=== PATIENT | male | born 1955 | race Caucasian/White ===

== ENCOUNTER 2016-09-18 10:09 | Emergency (ER) | payer MEDICAID ==
[2016-09-18 10:14] VITALS: RESP 16
--- NOTE | 2016-09-18 11:39 | XR ---
EXAMINATION TYPE: XR hand limited RT DATE OF EXAM: 09/18/2016 11:35 AM CLINICAL HISTORY: table saw injury to rt second digit TECHNIQUE: Frontal, lateral images of the right hand are obtained. COMPARISON: None. FINDINGS: Soft tissue injury right second digit. Several radiopaque densities may reflect foreign bod y. No displaced fracture identified with certainty at this time. IMPRESSION: There is no acute fracture or dislocation ICD 10 NO FRACTURE, INITIAL EVALUATION
[2016-09-18] MEDS ORDERED: CEPHALEXIN 500 MG CAP PO STA (12:06)
[2016-09-18] MEDS ORDERED: CEPHALEXIN 500MG STARTER PACK 4 CAP BTL PO STA (12:06)
[2016-09-18] MEDS ORDERED: DIPH,PERTUS(ACELL)TETVAC-LF 0.5 ML VIAL IM ONE (12:10)
--- NOTE | 2016-09-18 12:11 | ED ---
General Adult HPI - General Chief complaint: Wound/Laceration Stated complaint: RT INDEX FINGER LAC TABLE SAW Time Seen by Provider: 09/18/16 10:32 Source: patient, RN notes reviewed, old records reviewed Mode of arrival: ambulatory Limitations: no limitations - History of Present Illness Initial comments: This is a 60-year-old male here for evaluation. Patient is here for devotion finger injury. Finger injury is of, this was an injury sustained or with tablesaw. Patient this injury happened about half hour prior to arrival. Patient complains of severe pain in that finger, minimal bleeding. Patient denies any change in range of motion - Related Data Home Medications Medication Instructions Recorded Confirmed Aspirin 81 mg PO DAILY 02/15/14 09/18/16 Atorvastatin Calcium [Lipitor] 40 mg PO DAILY 02/15/14 09/18/16 Fenofibrate [Lofibra] 54 mg PO DAILY 02/15/14 09/18/16 Hydrochlorothiazide 50 mg PO W/SUPPER 02/15/14 09/18/16 Insulin NPH Human Isophane 36 unit INJ HS 02/15/14 09/18/16 [humuLIN N Kwikpen] Pioglitazone HCl 30 mg PO BID 02/15/14 09/18/16 cloNIDine HCL 0.1 mg PO W/SUPPER 02/15/14 09/18/16 Allopurinol [Zyloprim] 300 mg PO HS 09/05/15 09/18/16 Canagliflozin [Invokana] 300 mg PO DAILY 09/05/15 09/18/16 Cholecalciferol [Vitamin D3] 2,000 unit PO DAILY 09/05/15 09/18/16 Magnesium Oxide [Mag-Ox] 400 mg PO QID 09/05/15 09/18/16 Multivitamins, Thera [Multivitamin] 1 tab PO DAILY 09/05/15 09/18/16 Theralith 1 tab PO QID 09/05/15 09/18/16 Enalapril [Vasotec] 10 mg PO BID 04/22/16 09/18/16 glipiZIDE/METFORMIN HCL 1 each PO DAILY 04/22/16 09/18/16 [glipiZIDE/METFORMIN HCL 2.5-500 mg] Previous Rx's Medication Instructions Recorded Famotidine [Pepcid] 20 mg PO BID #30 tablet 07/25/16 HYDROcodone/APAP 7.5-325MG [[place] 1 tab PO Q4H PRN #30 tab 04/26/16 7.5-325] Allergies Allergy/AdvReac Type Severity Reaction Status Date / Time No Known Allergies Allergy Verified 09/18/16 10:14 Review of Systems ROS Statement: Those systems with pertinent positive or pertinent negative responses have been documented in the HPI. ROS Other: All systems not noted in ROS Statement are negative. Past Medical History Past Medical History: Diabetes Mellitus, Hyperlipidemia, Hypertension Additional Past Medical History / Comment(s): RENAL CALCULUS History of Any Multi-Drug Resistant Organisms: None Reported Past Surgical History: Hernia Repair Additional Past Surgical History / Comment(s): LITHOTRIPSY Past Anesthesia/Blood Transfusion Reactions: Postoperative Nausea & Vomiting ( PONV) Additional Past Anesthesia/Blood Transfusion Reaction / Comment(s): STATES SEVERE Past Psychological History: No Psychological Hx Reported Smoking Status: Never smoker Past Alcohol Use History: None Reported Past Drug Use History: None Reported General Exam Limitations: no limitations General appearance: alert, in no apparent distress Head exam: Present: atraumatic, normocephalic, normal inspection Eye exam: Present: normal appearance, PERRL, EOMI. Absent: scleral icterus, conjunctival injection, periorbital swelling ENT exam: Present: normal exam, mucous membranes moist Neck exam: Present: normal inspection. Absent: tenderness, meningismus, lymphadenopathy Respiratory exam: Present: normal lung sounds bilaterally. Absent: respiratory distress, wheezes, rales, rhonchi, stridor Cardiovascular Exam: Present: regular rate, normal rhythm, normal heart sounds. Absent: systolic murmur, diastolic murmur, rubs, gallop, clicks GI/Abdominal exam: Present: soft, normal bowel sounds. Absent: distended, tenderness, guarding, rebound, rigid Extremities exam: Present: normal inspection, full ROM, normal capillary refill , other (Right index finger skin flap with lacerated and macerated edge, laceration extends about 5 cm around the entire length of finger. The does not seem to be tendon damage affecting the function but upon deep exploration of wound the tendons do appear to be damaged). Absent: tenderness, pedal edema, joint swelling, calf tenderness Back exam: Present: normal inspection Neurological exam: Present: alert, oriented X3, CN II-XII intact Psychiatric exam: Present: normal affect, normal mood Skin exam: Present: warm, dry, intact, normal color. Absent: rash Course Vital Signs 09/18/16 10:12 Temperature 98.0 F Pulse Rate 83 Respiratory 16 Rate Blood Pressure 127/78 O2 Sat by Pulse 96 Oximetry - Reevaluation(s) Reevaluation #1: 09/18/16 12:07 Finger sutures placed, wound is cleaned and irrigated, after anesthetic. Bandage is applied Procedures - Laceration Laceration #1 Consent Obtained: verbal consent Time Out Performed: Yes Indication: laceration Site: hand Description: stellate, flap, irregular Depth: simple, single layer Anesthetic Used: lidocaine 1% Anesthesia Technique: nerve block Pre-repair: wound explored, irrigated extensively Type of Sutures: nylon Size of Sutures: 4-0 Technique: simple, interrupted Patient Tolerated Procedure: well Medical Decision Making - Medical Decision Making 61-year-old male to the ER for evaluation of finger injury, finger laceration with skin flap. There does appear to be tendon involvement, patient understands this and will follow-up with Dr. Hudson, patient at this point is given antibiotics for preventative infection, we will also give patient tetanus shot here today, - Radiology Data Radiology results: report reviewed (X-ray right hand is negative for fracture), image reviewed Disposition Clinical Impression: Laceration, Laceration of right index finger, Other injury of extensor muscle, fascia and tendon of right index finger at forearm level, initial encounter Disposition: HOME SELF-CARE Condition: Good Instructions: Finger Laceration (ED), Tendon Laceration (ED) Referrals: Lev Kuhn MD [Primary Care Provider] - 1-2 days Leonardo Hudson DO [Doctor of Osteopathic Medicine] - 1-2 days
[2016-09-18 12:47] VITALS: BP 122/78; PULSE 78; TEMP 97.2
== END 2016-09-18 12:48 | disposition home or self-care (01) ==
LOC: EC 10:09
DX: S56.421A Laceration of extensor muscle, fascia and tendon of right index finger at forearm level, initial encounter (principal); E11.9 Type 2 diabetes mellitus without complications; I10 Essential (primary) hypertension; E78.5 Hyperlipidemia, unspecified; Z23 Encounter for immunization; Z79.4 Long term (current) use of insulin; Z79.84 Long term (current) use of oral hypoglycemic drugs; Z79.899 Other long term (current) drug therapy; W26.8XXA Contact with other sharp object(s), not elsewhere classified, initial encounter
CPT/HCPCS: 12002; 90471; 90715; 99283

== ENCOUNTER → 2016-09-29 | Outpatient (CLI) | payer MEDICAID ==
[2016-09-29 07:54] LABS: Basophils # (A) 0.1 k/uL (0-0.2); Basophils % (A) 1 %; CH 31.2; CHCM 33.7; Eosinophils # (A) 0.6 k/uL (0-0.7); Eosinophils % (A) 7 %; HCT 45.2 % (39.0-53.0); HDW 2.99; HGB 15.4 gm/dL (13.0-17.5); Luc # (Auto) 0.33; Luc % (Auto) 4; Lymphocytes # (A) 2.3 k/uL (1.0-4.8); Lymphocytes % (A) 28 %; MCH 31.7 pg (25.0-35.0); MCHC 34.1 g/dL (31.0-37.0); Monocytes # (A) 0.5 k/uL (0-1.0); Monocytes % (A) 6 %; Neutrophils # (A) 4.3 k/uL (1.3-7.7); Neutrophils % (A) 54 %; RBC 4.87 m/uL (4.30-5.90); RDW 13.8 % (11.5-15.5); WBC 8.1 k/uL (3.8-10.6); WBC (Perox) 8.21
[2016-09-29 11:54] LABS: ALT 40 U/L (21-72); AST 36 U/L (17-59); Alkaline Phosphatase 65 U/L (38-126); Anion Gap 13 mmol/L; Blood Urea Nitrogen 18 mg/dL (9-20); Calcium 10.6 mg/dL (8.4-10.2); Carbon Dioxide 24 mmol/L (22-30); Chloride 103 mmol/L (98-107); Cholesterol 140 mg/dL (<200); Glucose 129 mg/dL (74-99); HDL Cholesterol 32 mg/dL (40-60); Hemoglobin A1C 7.6 % (4.2-6.1); Non-African American GFR(MDRD) >60 (>60 ml/min/1.73 sqM); Sodium 140 mmol/L (137-145); Total Bilirubin 0.5 mg/dL (0.2-1.3); Total Protein 6.7 g/dL (6.3-8.2); Triglycerides 324 mg/dL (<150)
[2016-09-29 12:24] LABS: Prostate Specific Antigen 0.89 ng/mL (0.00-4.00)
== END ==
LOC: LABWHC1 07:11
PROVIDERS: ATTEND Urology
DX: I10 Essential (primary) hypertension (principal); E11.65 Type 2 diabetes mellitus with hyperglycemia; E78.00 Pure hypercholesterolemia, unspecified; N40.1 Benign prostatic hyperplasia with lower urinary tract symptoms; R35.1 Nocturia
CPT/HCPCS: 36415; 80053; 80061; 83036; 84153; 84439; 84443; 85025

== ENCOUNTER → 2017-03-17 | Outpatient (CLI) | payer MEDICAID ==
[2017-03-17 08:48] LABS: Basophils # (A) 0.1 k/uL (0-0.2); Basophils % (A) 1 %; CH 30.1; CHCM 32.9; Eosinophils # (A) 0.9 k/uL (0-0.7); Eosinophils % (A) 8 %; HCT 47.2 % (39.0-53.0); HDW 2.86; HGB 15.7 gm/dL (13.0-17.5); Luc # (Auto) 0.26; Luc % (Auto) 2; Lymphocytes # (A) 2.6 k/uL (1.0-4.8); Lymphocytes % (A) 24 %; MCH 30.7 pg (25.0-35.0); MCHC 33.3 g/dL (31.0-37.0); MCV 92.1 fL (80.0-100.0); Mean Platelet Volume 7.6; Monocytes # (A) 0.8 k/uL (0-1.0); Monocytes % (A) 7 %; Neutrophils # (A) 6.4 k/uL (1.3-7.7); Neutrophils % (A) 58 %; RBC 5.12 m/uL (4.30-5.90); RDW 15.3 % (11.5-15.5); WBC 11.1 k/uL (3.8-10.6); WBC (Perox) 11.11
[2017-03-17 08:55] LABS: ALT 41 U/L (21-72); AST 32 U/L (17-59); Alkaline Phosphatase 72 U/L (38-126); Anion Gap 11 mmol/L; Blood Urea Nitrogen 16 mg/dL (9-20); Calcium 10.2 mg/dL (8.4-10.2); Carbon Dioxide 29 mmol/L (22-30); Chloride 100 mmol/L (98-107); Cholesterol 148 mg/dL (<200); Glucose 150 mg/dL (74-99); HDL Cholesterol 39 mg/dL (40-60); Non-African American GFR(MDRD) >60 (>60 ml/min/1.73 sqM); Potassium 4.1 mmol/L (3.5-5.1); Sodium 140 mmol/L (137-145); Total Bilirubin 0.4 mg/dL (0.2-1.3); Total Protein 7.1 g/dL (6.3-8.2)
== END | disposition home or self-care (01) ==
LOC: LABWHC1 07:53
PROVIDERS: ATTEND Internal Medicine Geriatric Medicine
DX: E78.00 Pure hypercholesterolemia, unspecified (principal); E11.65 Type 2 diabetes mellitus with hyperglycemia; I10 Essential (primary) hypertension
CPT/HCPCS: 36415; 80053; 80061; 83036; 84439; 84443; 85025

== ENCOUNTER → 2017-07-13 | Outpatient (CLI) | payer MEDICAID ==
[2017-07-13 07:56] LABS: Basophils # (A) 0.1 k/uL (0-0.2); Basophils % (A) 1 %; Eosinophils # (A) 0.7 k/uL (0-0.7); Eosinophils % (A) 9 %; HCT 47.9 % (39.0-53.0); HGB 15.5 gm/dL (13.0-17.5); Lymphocytes # (A) 2.7 k/uL (1.0-4.8); Lymphocytes % (A) 31 %; MCH 29.2 pg (25.0-35.0); MCHC 32.5 g/dL (31.0-37.0); MCV 89.8 fL (80.0-100.0); Mean Platelet Volume 7.4; Monocytes # (A) 0.8 k/uL (0-1.0); Monocytes % (A) 9 %; Neutrophils # (A) 4.1 k/uL (1.3-7.7); Neutrophils % (A) 47 %; Platelet Count 253 k/uL (150-450); RBC 5.33 m/uL (4.30-5.90); WBC 8.7 k/uL (3.8-10.6)
[2017-07-13 08:00] LABS: ALT 27 U/L (21-72); AST 30 U/L (17-59); Albumin 4.4 g/dL (3.5-5.0); Alkaline Phosphatase 69 U/L (38-126); Anion Gap 12 mmol/L; Blood Urea Nitrogen 22 mg/dL (9-20); Calcium 10.5 mg/dL (8.4-10.2); Carbon Dioxide 30 mmol/L (22-30); Chloride 99 mmol/L (98-107); Cholesterol 148 mg/dL (<200); Glucose 108 mg/dL (74-99); HDL Cholesterol 49 mg/dL (40-60); LDL Cholesterol,Calculated 59 mg/dL (0-99); Potassium 4.2 mmol/L (3.5-5.1); Sodium 141 mmol/L (137-145); Total Bilirubin 0.5 mg/dL (0.2-1.3); Total Protein 7.1 g/dL (6.3-8.2); Triglycerides 201 mg/dL (<150)
[2017-07-13 08:16] LABS: T4, Free (Free Thyroxine) 0.99 ng/dL (0.78-2.19)
[2017-07-13 19:37] LABS: Hemoglobin A1C 8.9 % (4.0-6.0)
== END | disposition home or self-care (01) ==
LOC: LABWHC1 07:23
PROVIDERS: ATTEND Internal Medicine Geriatric Medicine
DX: E11.65 Type 2 diabetes mellitus with hyperglycemia (principal); E78.00 Pure hypercholesterolemia, unspecified; I10 Essential (primary) hypertension
CPT/HCPCS: 36415; 80053; 80061; 82043; 82570; 83036; 84439; 84443; 85025

== ENCOUNTER → 2017-10-27 | Outpatient (CLI) | payer MEDICAID ==
[2017-10-27 09:04] LABS: HCT 45.8 % (39.0-53.0); HGB 15.4 gm/dL (13.0-17.5); MCH 30.4 pg (25.0-35.0); MCHC 33.7 g/dL (31.0-37.0); MCV 90.3 fL (80.0-100.0); Platelet Count 214 k/uL (150-450); RBC 5.07 m/uL (4.30-5.90); RDW 13.9 % (11.5-15.5); WBC 7.7 k/uL (3.8-10.6)
[2017-10-27 09:13] LABS: ALT 38 U/L (21-72); AST 45 U/L (17-59); Albumin 4.2 g/dL (3.5-5.0); Alkaline Phosphatase 69 U/L (38-126); Anion Gap 11 mmol/L; Blood Urea Nitrogen 22 mg/dL (9-20); Calcium 9.6 mg/dL (8.4-10.2); Carbon Dioxide 28 mmol/L (22-30); Chloride 100 mmol/L (98-107); Cholesterol 127 mg/dL (<200); Glucose 78 mg/dL (74-99); HDL Cholesterol 40 mg/dL (40-60); LDL Cholesterol,Calculated 62 mg/dL (0-99); Potassium 3.8 mmol/L (3.5-5.1); Sodium 139 mmol/L (137-145); Total Bilirubin 0.5 mg/dL (0.2-1.3); Total Protein 6.6 g/dL (6.3-8.2); Triglycerides 124 mg/dL (<150)
[2017-10-27 09:29] LABS: T4, Free (Free Thyroxine) 1.04 ng/dL (0.78-2.19)
[2017-10-27 10:20] LABS: Lymphocytes # (M) 2.16 k/uL (1.0-4.8); Monocytes # (M) 1.08 k/uL (0-1.0); Neutrophils # (M) 3.85 k/uL (1.3-7.7); Neutrophils % (M) 50 %
[2017-10-27 10:21] LABS: Basophils # (M) 0.08 k/uL (0-0.2); Eosinophils # (M) 0.54 k/uL (0-0.7); Nucleated Red Blood Cells 0 /100 WBC (0-0); Total Cells Counted 100
[2017-10-27 19:05] LABS: Hemoglobin A1C 6.9 % (4.0-6.0)
== END | disposition home or self-care (01) ==
LOC: LABWHC1 08:21
PROVIDERS: ATTEND Internal Medicine Geriatric Medicine
DX: E11.65 Type 2 diabetes mellitus with hyperglycemia (principal); E78.00 Pure hypercholesterolemia, unspecified
CPT/HCPCS: 36415; 80053; 80061; 83036; 84439; 84443; 85025

== ENCOUNTER 2018-03-19 11:18 | Emergency (ER) | payer MEDICAID, MEDICARE ==
[2018-03-19 11:27] VITALS: BP 135/80; PULSE 82; RESP 16; TEMP 97.9
--- NOTE | 2018-03-19 11:46 | ED ---
General Adult HPI - General Chief complaint: Extremity Injury, Upper Stated complaint: Arm Injury Time Seen by Provider: 03/19/18 11:28 Source: patient, RN notes reviewed Mode of arrival: ambulatory Limitations: no limitations - History of Present Illness Initial comments: Capacious 63-year-old male presented to the emergency room today with chief complaint of injury to his right arm that occurred 2 days ago. He does admit that he was picking up a gas fireplace when he felt instant pain in the right biceps area. Patient states that since that time he's noticed that he has pain with certain movements. Patient does admit that his noticed that his strength is been somewhat decreased. Patient denies any other injury or complaint. Patient denies any recent fever, chills, shortness of breath, chest pain, back pain, abdominal pain, nausea or vomiting, numbness or tingling, headaches or visual changes, or any other complaints. - Related Data Home Medications Medication Instructions Recorded Confirmed Aspirin 81 mg PO DAILY 02/15/14 09/18/16 Atorvastatin Calcium [Lipitor] 40 mg PO DAILY 02/15/14 09/18/16 Fenofibrate [Lofibra] 54 mg PO DAILY 02/15/14 09/18/16 Hydrochlorothiazide 50 mg PO W/SUPPER 02/15/14 09/18/16 Insulin NPH Human Isophane 36 unit INJ HS 02/15/14 09/18/16 [humuLIN N Kwikpen] Pioglitazone HCl 30 mg PO BID 02/15/14 09/18/16 cloNIDine HCL 0.1 mg PO W/SUPPER 02/15/14 09/18/16 Allopurinol [Zyloprim] 300 mg PO HS 09/05/15 09/18/16 Canagliflozin [Invokana] 300 mg PO DAILY 09/05/15 09/18/16 Cholecalciferol [Vitamin D3] 2,000 unit PO DAILY 09/05/15 09/18/16 Magnesium Oxide [Mag-Ox] 400 mg PO QID 09/05/15 09/18/16 Multivitamins, Thera [Multivitamin] 1 tab PO DAILY 09/05/15 09/18/16 Theralith 1 tab PO QID 09/05/15 09/18/16 Enalapril [Vasotec] 10 mg PO BID 12/15/16 05/13/17 glipiZIDE/METFORMIN HCL 1 each PO DAILY 04/22/16 09/18/16 [glipiZIDE/METFORMIN HCL 2.5-500 mg] Previous Rx's Medication Instructions Recorded Famotidine [Pepcid] 20 mg PO BID #30 tablet 12/01/15 HYDROcodone/APAP 7.5-325MG [[place] 1 tab PO Q4H PRN #30 tab 04/26/16 7.5-325] Acetaminophen with Codeine 1 tab PO Q4H PRN #20 tab 09/18/16 [Tylenol w/codeine #3] Cephalexin [Keflex] 500 mg PO Q8HR #15 cap 09/18/16 Allergies Allergy/AdvReac Type Severity Reaction Status Date / Time No Known Allergies Allergy Verified 03/19/18 11:27 Review of Systems ROS Statement: Those systems with pertinent positive or pertinent negative responses have been documented in the HPI. ROS Other: All systems not noted in ROS Statement are negative. Past Medical History Past Medical History: Diabetes Mellitus, Hyperlipidemia, Hypertension Additional Past Medical History / Comment(s): RENAL CALCULUS History of Any Multi-Drug Resistant Organisms: None Reported Past Surgical History: Hernia Repair Additional Past Surgical History / Comment(s): LITHOTRIPSY Past Anesthesia/Blood Transfusion Reactions: Postoperative Nausea & Vomiting ( PONV) Additional Past Anesthesia/Blood Transfusion Reaction / Comment(s): STATES SEVERE Past Psychological History: No Psychological Hx Reported Smoking Status: Never smoker Past Alcohol Use History: None Reported Past Drug Use History: None Reported General Exam - General Exam Comments Initial Comments: General: The patient is awake and alert, in no distress, and does not appear acutely ill. Neck: The neck is supple, there is no tenderness or JVD. Musculoskeletal: Patient does have positive pulses. Shows full range of motion. No bony tenderness on exam. Patient does have a symmetrical biceps and compared bilaterally. Strength is 5/5 but does experience pain with the right bicep. Neurological: A&O x 3. CN II-XII intact, There are no obvious motor or sensory deficits. Coordination appears grossly intact. Speech is normal. Skin: Skin is warm and dry and no rashes or lesions are noted. Psychiatric: Normal mood and affect. Limitations: no limitations Course Vital Signs 03/19/18 11:25 Temperature 97.9 F Pulse Rate 82 Respiratory 16 Rate Blood Pressure 135/80 O2 Sat by Pulse 98 Oximetry Medical Decision Making - Medical Decision Making Patient's physical exam findings consistent with biceps tendon rupture. Patient is advised to follow-up with orthopedics tomorrow. Advised return for any other concerns. Disposition Clinical Impression: Biceps tendon tear Disposition: HOME SELF-CARE Condition: Good Instructions: Tendon Rupture (ED) Additional Instructions: Please follow-up with orthopedics in the next 2 days. Please return to emergency room if the symptoms increase or worsen or for any other concerns. Is patient prescribed a controlled substance at d/c from ED?: No Referrals: Lev Kuhn MD [Primary Care Provider] - 1-2 days Eleuterio Kelly MD [Medical Doctor] - 1-2 days
== END 2018-03-19 11:55 | disposition home or self-care (01) ==
LOC: EC 11:18
DX: S46.211A Strain of muscle, fascia and tendon of other parts of biceps, right arm, initial encounter (principal); X50.9XXA Other and unspecified overexertion or strenuous movements or postures, initial encounter; E11.9 Type 2 diabetes mellitus without complications; E78.5 Hyperlipidemia, unspecified; I10 Essential (primary) hypertension; Z87.442 Personal history of urinary calculi; Z79.4 Long term (current) use of insulin; Z79.899 Other long term (current) drug therapy; Z79.82 Long term (current) use of aspirin
CPT/HCPCS: 99283

== ENCOUNTER → 2018-03-25 | Outpatient (CLI) | payer MEDICAID, MEDICARE ==
[2018-03-25 09:00] LABS: Basophils # (A) 0.1 k/uL (0-0.2); Basophils % (A) 1 %; Eosinophils # (A) 0.7 k/uL (0-0.7); Eosinophils % (A) 8 %; HCT 47.7 % (39.0-53.0); HGB 15.6 gm/dL (13.0-17.5); Lymphocytes # (A) 2.2 k/uL (1.0-4.8); Lymphocytes % (A) 26 %; MCH 30.4 pg (25.0-35.0); MCHC 32.6 g/dL (31.0-37.0); MCV 93.2 fL (80.0-100.0); Mean Platelet Volume 6.6; Monocytes # (A) 0.6 k/uL (0-1.0); Monocytes % (A) 7 %; Neutrophils # (A) 4.6 k/uL (1.3-7.7); Neutrophils % (A) 55 %; Platelet Count 257 k/uL (150-450); RBC 5.12 m/uL (4.30-5.90); WBC 8.4 k/uL (3.8-10.6)
[2018-03-25 17:32] LABS: Albumin 4.5 g/dL (3.80-4.90); Albumin/Globulin Ratio 2.5 (1.20-2.10); Anion Gap 9.8 mmol/L (4.00-12.00); Carbon Dioxide 25.2 mmol/L (21.6-31.8); Globulin 1.8 g/dL (2.1-3.7); Potassium 3.9 mmol/L (3.5-5.5); Total Bilirubin 0.4 mg/dL (0.3-1.2); Total Protein 6.3 g/dL (6.2-8.2)
[2018-03-25 17:39] LABS: T4, Free (Free Thyroxine) 1.1 ng/dL (0.80-1.80)
[2018-03-25 17:50] LABS: Hemoglobin A1C 7.3 % (4.0-6.0)
== END | disposition home or self-care (01) ==
LOC: LABWHC1 08:06
PROVIDERS: ATTEND Internal Medicine Geriatric Medicine
DX: E11.65 Type 2 diabetes mellitus with hyperglycemia (principal); E78.00 Pure hypercholesterolemia, unspecified
CPT/HCPCS: 36415; 80053; 80061; 83036; 84439; 84443; 85025

== ENCOUNTER → 2018-11-21 | Outpatient (CLI) | payer MEDICAID ==
[2018-11-21 10:28] LABS: Basophils # (A) 0.1 k/uL (0-0.2); Basophils % (A) 1 %; Eosinophils # (A) 0.7 k/uL (0-0.7); Eosinophils % (A) 9 %; HCT 44.6 % (39.0-53.0); HGB 14.9 gm/dL (13.0-17.5); Lymphocytes # (A) 2.1 k/uL (1.0-4.8); Lymphocytes % (A) 28 %; MCH 30.5 pg (25.0-35.0); MCHC 33.5 g/dL (31.0-37.0); MCV 91.1 fL (80.0-100.0); Mean Platelet Volume 7.4; Monocytes # (A) 0.6 k/uL (0-1.0); Monocytes % (A) 8 %; Neutrophils # (A) 3.8 k/uL (1.3-7.7); Neutrophils % (A) 51 %; Platelet Count 231 k/uL (150-450); RDW 15.6 % (11.5-15.5); WBC 7.5 k/uL (3.8-10.6)
[2018-11-21 17:19] LABS: African American GFR (CKD) 91.1 (60.0-200.0); Albumin 4.3 g/dL (3.80-4.90); Albumin/Globulin Ratio 2.53 (1.60-3.17); Anion Gap 10.1 mmol/L (4.00-12.00); Calcium 9.8 mg/dL (8.7-10.3); Carbon Dioxide 26.9 mmol/L (21.6-31.8); Globulin 1.7 g/dL (1.6-3.3); LDL Cholesterol,Calculated 72.6 mg/dL (0.0-131.0); Potassium 4.2 mmol/L (3.5-5.5); Total Bilirubin 0.5 mg/dL (0.2-1.2); VLDL Calculation 42.4 mg/dL (5.00-40.00)
[2018-11-21 18:07] LABS: Hemoglobin A1C 7.7 % (4.0-6.0)
== END | disposition home or self-care (01) ==
LOC: LABWHC1 08:52
PROVIDERS: ATTEND Internal Medicine Geriatric Medicine
DX: E11.65 Type 2 diabetes mellitus with hyperglycemia (principal); K21.9 Gastro-esophageal reflux disease without esophagitis
CPT/HCPCS: 36415; 80053; 80061; 83036; 85025

== ENCOUNTER → 2019-02-16 | Outpatient (CLI) | payer MEDICAID ==
[2019-02-16 11:51] LABS: African American GFR (CKD) 102.8 (60.0-200.0); Albumin 4.3 g/dL (3.80-4.90); Albumin/Globulin Ratio 2.39 (1.60-3.17); Anion Gap 10.3 mmol/L (4.00-12.00); Calcium 9.8 mg/dL (8.7-10.3); Carbon Dioxide 27.7 mmol/L (21.6-31.8); Chol/HDL Ratio 3.56; Globulin 1.8 g/dL (1.6-3.3); LDL Cholesterol,Calculated 54.6 mg/dL (0.0-131.0); Total Bilirubin 0.4 mg/dL (0.2-1.2); Total Protein 6.1 g/dL (6.2-8.2); VLDL Calculation 45.4 mg/dL (5.00-40.00)
[2019-02-16 16:05] LABS: Hemoglobin A1C 7.1 % (4.0-6.0)
== END | disposition home or self-care (01) ==
LOC: LABWHC1 06:53
PROVIDERS: ATTEND Internal Medicine Geriatric Medicine
DX: E11.65 Type 2 diabetes mellitus with hyperglycemia (principal)
CPT/HCPCS: 36415; 80053; 80061; 83036

== ENCOUNTER → 2019-05-22 | Outpatient (CLI) | payer MEDICAID ==
[2019-05-22 11:33] LABS: African American GFR (CKD) 80.6 (60.0-200.0); Albumin 4.8 g/dL (3.80-4.90); Albumin/Globulin Ratio 2.53 (1.60-3.17); Anion Gap 11.7 mmol/L (4.00-12.00); BUN/Creat Ratio 17.27 Ratio (12.00-20.00); Calcium 10.1 mg/dL (8.7-10.3); Carbon Dioxide 28.3 mmol/L (21.6-31.8); Chol/HDL Ratio 4.1; Globulin 1.9 g/dL (1.6-3.3); LDL Cholesterol,Calculated 68.8 mg/dL (0.0-131.0); Non-African American GFR(CKD) 69.6 (60.0-200.0); Potassium 3.9 mmol/L (3.5-5.5); Total Bilirubin 0.5 mg/dL (0.2-1.2); Total Protein 6.7 g/dL (6.2-8.2); VLDL Calculation 61.2 mg/dL (5.00-40.00)
== END | disposition home or self-care (01) ==
LOC: LABWHC1 07:43
PROVIDERS: ATTEND Internal Medicine Geriatric Medicine
DX: E11.65 Type 2 diabetes mellitus with hyperglycemia (principal)
CPT/HCPCS: 36415; 80053; 80061; 83036

== ENCOUNTER → 2019-11-29 | Outpatient (CLI) | payer MEDICAID ==
[2019-11-29 09:30] LABS: Basophils # (A) 0.1 k/uL (0-0.2); Basophils % (A) 1 %; Eosinophils # (A) 0.6 k/uL (0-0.7); Eosinophils % (A) 8 %; HCT 45.9 % (39.0-53.0); HGB 15.3 gm/dL (13.0-17.5); Lymphocytes # (A) 2.1 k/uL (1.0-4.8); Lymphocytes % (A) 27 %; MCH 31.7 pg (25.0-35.0); MCHC 33.3 g/dL (31.0-37.0); MCV 95.3 fL (80.0-100.0); Mean Platelet Volume 7.5; Monocytes # (A) 0.5 k/uL (0-1.0); Monocytes % (A) 7 %; Neutrophils # (A) 4.2 k/uL (1.3-7.7); Neutrophils % (A) 55 %; Platelet Count 214 k/uL (150-450); RBC 4.81 m/uL (4.30-5.90); RDW 14.1 % (11.5-15.5); WBC 7.6 k/uL (3.8-10.6)
[2019-11-29 17:10] LABS: African American GFR (CKD) 102.8 (60.0-200.0); Albumin 4.3 g/dL (3.80-4.90); Albumin/Globulin Ratio 2.15 (1.60-3.17); Anion Gap 9.3 mmol/L (4.00-12.00); BUN/Creat Ratio 27.78 Ratio (12.00-20.00); Calcium 9.9 mg/dL (8.7-10.3); Carbon Dioxide 26.7 mmol/L (21.6-31.8); Chol/HDL Ratio 3.36; LDL Cholesterol,Calculated 65.4 mg/dL (0.0-131.0); Non-African American GFR(CKD) 88.7 (60.0-200.0); Potassium 3.9 mmol/L (3.5-5.5); Total Bilirubin 0.5 mg/dL (0.3-1.2); Total Protein 6.3 g/dL (6.2-8.2); VLDL Calculation 26.6 mg/dL (5.00-40.00)
[2019-11-29 17:16] LABS: Prostate Specific Antigen 0.7 ng/mL (0.0-4.5)
[2019-11-29 20:32] LABS: Hemoglobin A1C 6.9 % (4.0-6.0)
[2019-11-29 21:17] LABS: Urine Creatinine 94.1 mg/dL
== END | disposition home or self-care (01) ==
LOC: LABWHC1 08:46
PROVIDERS: ATTEND Internal Medicine Geriatric Medicine
DX: E11.65 Type 2 diabetes mellitus with hyperglycemia (principal); E78.2 Mixed hyperlipidemia; I10 Essential (primary) hypertension; N40.0 Benign prostatic hyperplasia without lower urinary tract symptoms
CPT/HCPCS: 36415; 80053; 80061; 82043; 82570; 83036; 84153; 84443; 85025

== ENCOUNTER → 2020-05-23 | Outpatient (CLI) | payer MEDICAID ==
[2020-05-23 08:29] LABS: Basophils # (A) 0.2 k/uL (0-0.2); Basophils % (A) 2 %; Eosinophils # (A) 0.8 k/uL (0-0.7); Eosinophils % (A) 9 %; HCT 46.3 % (39.0-53.0); HGB 15.7 gm/dL (13.0-17.5); Lymphocytes # (A) 2.9 k/uL (1.0-4.8); Lymphocytes % (A) 31 %; MCH 31.3 pg (25.0-35.0); MCHC 33.9 g/dL (31.0-37.0); MCV 92.3 fL (80.0-100.0); Mean Platelet Volume 7.1; Monocytes # (A) 0.8 k/uL (0-1.0); Monocytes % (A) 9 %; Neutrophils # (A) 4.3 k/uL (1.3-7.7); Neutrophils % (A) 47 %; Platelet Count 257 k/uL (150-450); RBC 5.02 m/uL (4.30-5.90); RDW 13.5 % (11.5-15.5); WBC 9.2 k/uL (3.8-10.6)
[2020-05-23 11:45] LABS: African American GFR (CKD) 89.9 (60.0-200.0); Albumin 4.6 g/dL (3.80-4.90); Albumin/Globulin Ratio 2.3 (1.60-3.17); Anion Gap 10.2 mmol/L (4.00-12.00); Calcium 10.7 mg/dL (8.7-10.3); Carbon Dioxide 28.8 mmol/L (21.6-31.8); Chol/HDL Ratio 4.21; LDL Cholesterol,Calculated 65.2 mg/dL (0.0-131.0); Non-African American GFR(CKD) 77.5 (60.0-200.0); Potassium 3.8 mmol/L (3.5-5.5); Total Bilirubin 0.4 mg/dL (0.2-1.2); Total Protein 6.6 g/dL (6.2-8.2); VLDL Calculation 59.8 mg/dL (5.00-40.00)
[2020-05-23 16:16] LABS: Hemoglobin A1C 8.5 % (4.0-6.0)
== END | disposition home or self-care (01) ==
LOC: LABWHC1 08:05
PROVIDERS: ATTEND Internal Medicine Geriatric Medicine
DX: I10 Essential (primary) hypertension (principal); E11.65 Type 2 diabetes mellitus with hyperglycemia; E78.2 Mixed hyperlipidemia
CPT/HCPCS: 36415; 80053; 80061; 83036; 84443; 85025

== ENCOUNTER → 2020-11-18 | Outpatient (CLI) | payer MEDICAID ==
[2020-11-19 01:35] LABS: Hemoglobin A1C 7.5 % (4.0-6.0)
== END | disposition home or self-care (01) ==
LOC: LABWHC1 16:25
PROVIDERS: ATTEND Internal Medicine Geriatric Medicine
DX: E11.65 Type 2 diabetes mellitus with hyperglycemia (principal)
CPT/HCPCS: 36415; 83036

== ENCOUNTER → 2021-02-12 | Outpatient (CLI) | payer MEDICAID ==
[2021-02-12 11:10] LABS: Basophils # (A) 0.08 X 10*3/uL (0.00-0.10); Basophils % (A) 1.1 %; Eosinophils # (A) 0.64 X 10*3/uL (0.04-0.35); Eosinophils % (A) 8.5 %; HCT 43.7 % (39.6-50.0); HGB 14.3 g/dL (13.0-17.0); Lymphocytes % (A) 26.5 %; MCH 29.4 pg (27.0-32.0); MCHC 32.7 g/dL (32.0-37.0); MCV 89.9 fL (80.0-97.0); Mean Platelet Volume 10.5 fL (9.5-12.2); Monocytes # (A) 0.81 X 10*3/uL (0.20-1.00); Monocytes % (A) 10.7 %; Neutrophils % (A) 53.1 %; Platelet Count 272 X 10*3/uL (140-440); RBC 4.86 X 10*6/uL (4.40-5.60); RDW 14.8 % (11.5-14.5); WBC 7.54 X 10*3/uL (4.50-10.00)
[2021-02-12 20:35] LABS: African American GFR (CKD) 89.2 (60.0-200.0); Albumin 4.5 g/dL (3.8-4.9); Albumin/Globulin Ratio 1.8 (1.60-3.17); Anion Gap 16.6 mmol/L (4.00-12.00); Carbon Dioxide 20.4 mmol/L (21.6-31.8); Chol/HDL Ratio 3.8 Ratio; Globulin 2.5 g/dL (1.6-3.3); HDL Cholesterol 40.3 mg/dL (40.00-60.00); LDL Cholesterol,Calculated 68.7 mg/dL (0.0-131.0); Prostate Specific Antigen 0.8 ng/mL (0.00-4.50); Total Bilirubin 0.2 mg/dL (0.30-1.20)
== END | disposition home or self-care (01) ==
LOC: LABWHC1 07:39
PROVIDERS: ATTEND Internal Medicine Geriatric Medicine
DX: E11.65 Type 2 diabetes mellitus with hyperglycemia (principal); K21.9 Gastro-esophageal reflux disease without esophagitis; E78.00 Pure hypercholesterolemia, unspecified; N40.0 Benign prostatic hyperplasia without lower urinary tract symptoms
CPT/HCPCS: 36415; 80053; 80061; 83036; 84153; 85025

== ENCOUNTER → 2021-02-16 | Outpatient (CLI) | payer MEDICAID ==
[2021-02-16 16:35] LABS: Basophils # (A) 0.07 X 10*3/uL (0.00-0.10); Eosinophils # (A) 0.48 X 10*3/uL (0.04-0.35); Eosinophils % (A) 6.6 %; HCT 47.2 % (39.6-50.0); HGB 15.2 g/dL (13.0-17.0); Lymphocytes # (A) 1.68 X 10*3/uL (0.90-5.00); MCH 29.5 pg (27.0-32.0); MCHC 32.2 g/dL (32.0-37.0); MCV 91.7 fL (80.0-97.0); Mean Platelet Volume 10.6 fL (9.5-12.2); Monocytes # (A) 0.99 X 10*3/uL (0.20-1.00); Monocytes % (A) 13.5 %; Neutrophils # (A) 4.08 X 10*3/uL (1.80-7.70); Neutrophils % (A) 55.8 %; Platelet Count 285 X 10*3/uL (140-440); RBC 5.15 X 10*6/uL (4.40-5.60); RDW 14.9 % (11.5-14.5); WBC 7.31 X 10*3/uL (4.50-10.00)
[2021-02-16 17:07] LABS: African American GFR (CKD) 102.4 (60.0-200.0); Albumin 4.7 g/dL (3.8-4.9); Albumin/Globulin Ratio 1.9 (1.60-3.17); Anion Gap 13.7 mmol/L (4.00-12.00); BUN/Creat Ratio 20.18 Ratio (12.00-20.00); Blood Urea Nitrogen 17.7 mg/dL (9.0-27.0); Calcium 11.2 mg/dL (8.7-10.3); Carbon Dioxide 24.7 mmol/L (21.6-31.8); Chol/HDL Ratio 3.06 Ratio; Globulin 2.5 g/dL (1.6-3.3); HDL Cholesterol 44.1 mg/dL (40.00-60.00); LDL Cholesterol,Calculated 56.7 mg/dL (0.0-131.0); Non-African American GFR(CKD) 88.4 (60.0-200.0); Potassium 4.6 mmol/L (3.5-5.5); Total Bilirubin 0.3 mg/dL (0.30-1.20); Total Protein 7.2 g/dL (6.2-8.2); VLDL Calculation 34.2 mg/dL (5.00-40.00)
== END | disposition home or self-care (01) ==
LOC: LABWHC1 09:37
PROVIDERS: ATTEND Internal Medicine Geriatric Medicine
DX: E11.65 Type 2 diabetes mellitus with hyperglycemia (principal); K21.9 Gastro-esophageal reflux disease without esophagitis; N40.0 Benign prostatic hyperplasia without lower urinary tract symptoms; E78.00 Pure hypercholesterolemia, unspecified
CPT/HCPCS: 80061; 80053; 85025; 83036; 36415; G0103

== ENCOUNTER 2021-03-04 20:35 | Emergency (ER) | payer MEDICAID ==
[2021-03-04 21:12] VITALS: BP 144/76; PULSE 90; RESP 20; TEMP 98.2
--- NOTE | 2021-03-04 21:40 | XR ---
EXAMINATION TYPE: XR foot complete LT DATE OF EXAM: 03/04/2021 COMPARISON: NONE HISTORY: Stepped on metal. Pain. TECHNIQUE: 3 views FINDINGS: I see no fracture nor dislocation. Joint spaces are normal. Metatarsals are intact. There i s minimal calcaneal spurring. No evidence of radiopaque foreign body. IMPRESSION: Negative left foot exam.
[2021-03-04] MEDS ORDERED: LIDOCAINE 1% INJ 10MG/ML (20 ML MDV) SQ ONE (22:42)
--- NOTE | 2021-03-04 22:42 | ED ---
General Adult HPI - General Chief complaint: Extremity Injury, Lower Stated complaint: FB L Foot Time Seen by Provider: 03/04/21 22:33 Source: patient, RN notes reviewed Mode of arrival: ambulatory Limitations: no limitations - History of Present Illness Initial comments: 66-year-old male presents to the emergency department accompanied by his , for evaluation of foreign body in the left heel. Patient states there is a metal shaving retained in the surface of the heel that neither he nor his was able to remove. Reports pain only with ambulation or direct pressure over the metal shaving. Patient is concerned because he is diabetic. States he is up-to-date on his tetanus shot. Denies fever, chills, or altered sensation. - Related Data Home Medications Medication Instructions Recorded Confirmed Atorvastatin Calcium [Lipitor] 40 mg PO W/SUPPER 02/15/14 03/19/18 Hydrochlorothiazide 50 mg PO W/SUPPER 02/15/14 03/19/18 Allopurinol [Zyloprim] 300 mg PO HS 09/05/15 03/19/18 Canagliflozin [Invokana] 300 mg PO DAILY 09/05/15 03/19/18 Cholecalciferol [Vitamin D3] 2,000 unit PO DAILY 09/05/15 03/19/18 Magnesium Oxide [Mag-Ox] 400 mg PO QID 09/05/15 03/19/18 Multivitamins, Thera [Multivitamin] 1 tab PO DAILY 09/05/15 03/19/18 Theralith 1 tab PO TID@0800,1600,2100 09/05/15 03/19/18 Enalapril [Vasotec] 10 mg PO BID 04/22/16 03/19/18 Aspirin EC [Ecotrin] 325 mg PO HS 03/19/18 03/19/18 Cinnamon Bark [Cinnamon] 1,000 mg PO BID@1200,2100 03/19/18 03/19/18 Fish Oil/Dha/Epa [Fish Oil 1,200 1 cap PO DAILY 03/19/18 03/19/18 mg Fish Oil] Flaxseed Oil 1,000 mg PO W/SUPPER 03/19/18 03/19/18 Insulin Degludec [Tresiba 80 unit SQ HS 03/19/18 03/19/18 Flextouch U-100] Pioglitazone [Actos] 45 mg PO DAILY 03/19/18 03/19/18 Theral 2 tab PO DAILY@1200 03/19/18 03/19/18 Turmeric Root Extract [Turmeric] 500 mg PO BID 03/19/18 03/19/18 Vitamin E (Dl,Tocopheryl Acet) 400 unit PO HS 03/19/18 03/19/18 [Vitamin E] cloNIDine HCL [Catapres] 0.1 mg PO HS 03/19/18 03/19/18 metFORMIN HCL [metFORMIN HCL ER] 1,000 mg PO BID 03/19/18 03/19/18 raNITIdine HCL [Zantac] 75 mg PO BID 03/19/18 03/19/18 Allergies Allergy/AdvReac Type Severity Reaction Status Date / Time sitagliptin [From Mayuvia] AdvReac abd pain Verified 03/04/21 21:08 Review of Systems ROS Statement: Those systems with pertinent positive or pertinent negative responses have been documented in the HPI. ROS Other: All systems not noted in ROS Statement are negative. Past Medical History Past Medical History: Diabetes Mellitus, Hyperlipidemia, Hypertension Additional Past Medical History / Comment(s): RENAL CALCULUS History of Any Multi-Drug Resistant Organisms: None Reported Past Surgical History: Hernia Repair Additional Past Surgical History / Comment(s): LITHOTRIPSY Past Anesthesia/Blood Transfusion Reactions: Postoperative Nausea & Vomiting (PONV) Additional Past Anesthesia/Blood Transfusion Reaction / Comment(s): STATES SEVERE Past Psychological History: No Psychological Hx Reported Smoking Status: Never smoker Past Alcohol Use History: Rare Past Drug Use History: None Reported General Exam Limitations: no limitations (Well-developed, well-nourished male in no acute distress. Initial temperature 98.2, pulse 90, respirations 20, blood pressure 1 44/76, pulse ox 94% on room air.) General appearance: alert, in no apparent distress Respiratory exam: Present: normal lung sounds bilaterally. Absent: respiratory distress, wheezes, rales, rhonchi, stridor Cardiovascular Exam: Present: regular rate, normal rhythm, normal heart sounds. Absent: systolic murmur, diastolic murmur, rubs, gallop, clicks Left Lower Leg exam: Present: normal inspection Ankle exam: Present: normal inspection Foot/Toe exam: Present: full ROM, foreign body (Superficial metal shaving visualized on the plantar surface of the left heel; no surrounding erythema or tenderness.). Absent: tenderness, erythema Neurovascular tendon exam: Present: no vascular compromise. Absent: pulse deficit, abnormal cap refill, motor deficit, sensory deficit Neurological exam: Present: alert, oriented X3, CN II-XII intact Psychiatric exam: Present: normal affect, normal mood Skin exam: Present: warm, dry, intact, normal color. Absent: rash Course Vital Signs 03/04/21 21:09 Temperature 98.2 F Pulse Rate 90 Respiratory 20 Rate Blood Pressure 144/76 O2 Sat by Pulse 94 L Oximetry Procedures - Forgein Body Removal Soft Tissue Consent Obtained: verbal consent Site: foot (Plantar surface of the left heel) Foreign Body Suspected: Metal (Metal shaving) Foreign Body Removed: yes Foreign Body Removal Technique: Forceps Patient Tolerated Procedure: well, no complications, other (No anesthetic required) Medical Decision Making - Medical Decision Making 66-year-old male was evaluated for retained foreign body on the left calcaneal surface. Upon physical exam, small darkened area, pinpoint in size, noted. Surrounding skin is nonerythematous and nontender. Sensation intact. Skin cleansed, no anesthetization required, small metal shaving removed without difficulty. Dressing placed. X-ray of the left foot was obtained and was negative left foot exam. Wound care instructions reviewed with patient and spouse. Also instructed to wear shoes when leaving the house. Patient instructed to follow up with primary care provider for recheck. Return parameters were discussed; patient and verbalized understanding and agree with this plan. This patient's care was discussed with my attending Dr. Nava. - Radiology Data Radiology results: report reviewed, image reviewed X-ray of the left foot was obtained. Report was reviewed in its entirety. Impression per Dr. Renee is negative left foot exam Disposition Clinical Impression: Foreign body in left foot Disposition: HOME SELF-CARE Condition: Stable Instructions (If sedation given, give patient instructions): Soft Tissue Foreign Body (ED), Acute Wound Care (ED) Additional Instructions: Follow-up with your primary care provider for recheck the next 1-2 days. Monitor carefully for any signs of infection. Wear shoes around the house and in the garage. Return to the emergency department with any new, worsening, or concerning symptoms. Is patient prescribed a controlled substance at d/c from ED?: No Referrals: Lev Kuhn MD [Primary Care Provider] - 1-2 days Time of Disposition: 23:29
== END 2021-03-04 23:40 | disposition home or self-care (01) ==
LOC: EC 20:35
DX: S90.852A Superficial foreign body, left foot, initial encounter (principal); I10 Essential (primary) hypertension; E78.5 Hyperlipidemia, unspecified; E11.9 Type 2 diabetes mellitus without complications; Z79.82 Long term (current) use of aspirin; Z79.4 Long term (current) use of insulin; Z87.442 Personal history of urinary calculi; W45.8XXA Other foreign body or object entering through skin, initial encounter
CPT/HCPCS: 99283; 73630; J2001

== ENCOUNTER → 2021-07-06 | Outpatient (CLI) | payer MEDICARE ==
[2021-07-06 14:51] LABS: Basophils # (A) 0.07 X 10*3/uL (0.00-0.10); Basophils % (A) 0.8 %; Eosinophils # (A) 0.75 X 10*3/uL (0.04-0.35); Eosinophils % (A) 8.6 %; HCT 49.7 % (39.6-50.0); Immature Grans, Automated 0.2 %; Lymphocytes # (A) 2.29 X 10*3/uL (0.90-5.00); Lymphocytes % (A) 26.1 %; MCH 29.2 pg (27.0-32.0); MCHC 32.2 g/dL (32.0-37.0); MCV 90.7 fL (80.0-97.0); Mean Platelet Volume 10.8 fL (9.5-12.2); Monocytes # (A) 0.94 X 10*3/uL (0.20-1.00); Monocytes % (A) 10.7 %; NRBC Per 100 WBC 0 /100 WBCS (0.0-0.0); Neutrophils % (A) 53.6 %; Platelet Count 250 X 10*3/uL (140-440); RBC 5.48 X 10*6/uL (4.40-5.60); RDW 14.6 % (11.5-14.5); WBC 8.77 X 10*3/uL (4.50-10.00)
[2021-07-06 16:05] LABS: ALT 26 U/L (10-49); AST 25 U/L (14-35); African American GFR (CKD) 87.1 (60.0-200.0); Albumin 4.7 g/dL (3.8-4.9); Albumin/Globulin Ratio 1.89 (1.60-3.17); Alkaline Phosphatase 76 U/L (41-126); BUN/Creat Ratio 23.24 Ratio (12.00-20.00); Blood Urea Nitrogen 23.7 mg/dL (9.0-27.0); Calcium 10.6 mg/dL (8.7-10.3); Carbon Dioxide 26.1 mmol/L (20.0-27.5); Chloride 99 mmol/L (96-109); Chol/HDL Ratio 4.76 Ratio; Globulin 2.5 g/dL (1.6-3.3); Glucose 154 mg/dL (70-110); LDL Cholesterol,Calculated 80.5 mg/dL (0.0-131.0); Non-African American GFR(CKD) 75.2 (60.0-200.0); Potassium 4.3 mmol/L (3.5-5.5); Sodium 138 mmol/L (135-145); Total Protein 7.2 g/dL (6.2-8.2)
== END | disposition home or self-care (01) ==
LOC: LABWHC1 08:15
PROVIDERS: ATTEND Urology
DX: Z00.00 Encounter for general adult medical examination without abnormal findings (principal); E78.2 Mixed hyperlipidemia; E83.52 Hypercalcemia; E11.65 Type 2 diabetes mellitus with hyperglycemia
CPT/HCPCS: 36415; 80053; 80061; 83036; 83970; 84443; 85025

== ENCOUNTER 2022-04-21 14:54 | Emergency (ER) | payer MEDICARE ==
--- NOTE | 2022-04-21 17:51 | XR ---
EXAMINATION TYPE: XR chest 2V DATE OF EXAM: 04/21/2022 5:39 PM COMPARISON: Chest radiographs from 09/05/2015 TECHNIQUE: XR chest 2V Frontal and lateral views of the chest. CLINICAL INDICATION:Male, 67 years old with history of cough; FINDINGS: Lungs/Pleura: Right lower airspace opacities. There is no evidence of pleural effusion, focal consoli dation, or pneumothorax. Pulmonary vascularity: Unremarkable. Heart/mediastinum: Cardiomediastinal silhouette is unremarkable. Musculoskeletal: No acute osseous pathology. IMPRESSION: Right lower lobe airspace opacities concerning for pneumonia.
--- NOTE | 2022-04-21 18:07 | ED ---
URI HPI - General Chief Complaint: Upper Respiratory Infection Stated Complaint: Sore throat Time Seen by Provider: 04/21/22 17:26 Source: patient Mode of arrival: ambulatory Limitations: no limitations - History of Present Illness Initial Comments: Patient is a 67-year-old male presenting with chief complaint of URI-like symptoms. Patient states symptoms have been ongoing for the last 2 days. He admits to cough, congestion, sore throat, runny nose, body aches, fatigue. No chest pain or difficulty breathing. No difficulty swallowing. No fever or chills. No abdominal pain, nausea, vomiting. No headache, neck pain or stiffness, dizziness. - Related Data Home Medications Medication Instructions Recorded Confirmed Atorvastatin Calcium [Lipitor] 40 mg PO W/SUPPER 02/15/14 03/19/18 Hydrochlorothiazide 50 mg PO W/SUPPER 02/15/14 03/19/18 Canagliflozin [Invokana] 300 mg PO DAILY 09/05/15 03/19/18 Cholecalciferol [Vitamin D3] 2,000 unit PO DAILY 09/05/15 03/19/18 Magnesium Oxide [Mag-Ox] 400 mg PO QID 09/05/15 03/19/18 Multivitamins, Thera [Multivitamin] 1 tab PO DAILY 09/05/15 03/19/18 Theralith 1 tab PO TID@0800,1600,2100 09/05/15 03/19/18 allopurinoL [Zyloprim] 300 mg PO HS 09/05/15 03/19/18 Enalapril [Vasotec] 10 mg PO BID 04/22/16 03/19/18 Aspirin EC [Ecotrin] 325 mg PO HS 03/19/18 03/19/18 Cinnamon Bark [Cinnamon] 1,000 mg PO BID@1200,2100 03/19/18 03/19/18 Fish Oil/Dha/Epa [Fish Oil 1,200 1 cap PO DAILY 03/19/18 03/19/18 mg Fish Oil] Insulin Degludec [Tresiba 80 unit SQ HS 03/19/18 03/19/18 Flextouch U-100] Pioglitazone [Actos] 45 mg PO DAILY 03/19/18 03/19/18 Theral 2 tab PO DAILY@1200 03/19/18 03/19/18 Turmeric Root Extract [Turmeric] 500 mg PO BID 03/19/18 03/19/18 Vitamin E (Dl,Tocopheryl Acet) 400 unit PO HS 03/19/18 03/19/18 [Vitamin E] cloNIDine HCL [Catapres] 0.1 mg PO HS 03/19/18 03/19/18 flaxseed oiL [Flaxseed Oil] 1,000 mg PO W/SUPPER 03/19/18 03/19/18 metFORMIN HCL [metFORMIN HCL ER] 1,000 mg PO BID 03/19/18 03/19/18 raNITIdine HCL [Zantac] 75 mg PO BID 03/19/18 03/19/18 Previous Rx's Medication Instructions Recorded Oseltamivir [Tamiflu] 75 mg PO Q12HR 5 Days #10 cap 04/21/22 Allergies Allergy/AdvReac Type Severity Reaction Status Date / Time sitagliptin [From Januvia] AdvReac abd pain Verified 04/21/22 16:19 Review of Systems ROS Statement: Those systems with pertinent positive or pertinent negative responses have been documented in the HPI. ROS Other: All systems not noted in ROS Statement are negative. Past Medical History Past Medical History: Diabetes Mellitus, Hyperlipidemia, Hypertension Additional Past Medical History / Comment(s): RENAL CALCULUS History of Any Multi-Drug Resistant Organisms: None Reported Past Surgical History: Hernia Repair Additional Past Surgical History / Comment(s): LITHOTRIPSY Past Anesthesia/Blood Transfusion Reactions: Postoperative Nausea & Vomiting (PONV) Additional Past Anesthesia/Blood Transfusion Reaction / Comment(s): STATES S EVERE Past Psychological History: No Psychological Hx Reported Smoking Status: Never smoker Past Alcohol Use History: Rare Past Drug Use History: None Reported General Exam Limitations: no limitations General appearance: alert, in no apparent distress Head exam: Present: atraumatic, normocephalic, normal inspection Eye exam: Present: normal appearance, PERRL, EOMI. Absent: scleral icterus, conjunctival injection, periorbital swelling ENT exam: Present: normal exam, normal oropharynx, mucous membranes moist Neck exam: Present: normal inspection, full ROM Respiratory exam: Present: normal lung sounds bilaterally. Absent: respiratory distress, wheezes, rales, rhonchi, stridor Cardiovascular Exam: Present: regular rate, normal rhythm, normal heart sounds. Absent: systolic murmur, diastolic murmur, rubs, gallop, clicks Neurological exam: Present: alert, oriented X3, CN II-XII intact Psychiatric exam: Present: normal affect, normal mood Skin exam: Present: warm, dry, intact, normal color. Absent: rash Course Vital Signs 04/21/22 04/21/22 04/21/22 16:17 17:27 18:12 Temperature 98.8 F 98.2 F Pulse Rate 111 H 90 Respiratory 20 20 18 Rate Blood Pressure 156/92 150/87 O2 Sat by Pulse 97 98 Oximetry Medical Decision Making - Medical Decision Making Patient is a 67-year-old male presenting with chief complaint of URI-like symptoms for the last 2 days. On physical examination heart and lungs are clear to auscultation. Patient tested positive for influenza A. Chest x-ray shows right lower lobe airspace opacities, by my interpretation this appears consistent with influenza pneumonia. Patient is educated on these findings. Will be treated with Tamiflu. Alternate Motrin and Tylenol. Educated on supportive treatment. Follow-up with PCP. Report back to ER with any new or worsening symptoms. Discussed return parameters and answered all questions. Patient conveyed verbal understanding and agreed to the plan. I discussed this case in detail with my attending Dr. Magallanes - Lab Data Lab Results 04/21/22 04/21/22 Range/Units 16:22 16:22 Influenza Type A (PCR) Detected A (Not Detectd) Influenza Type B (PCR) Not Detected (Not Detectd) RSV (PCR) Not Detected (Not Detectd) SARS-CoV-2 (PCR) Not Detected (Not Detectd) Group A Strep (PCR) NOT DETECTED (Not Detectd) Disposition Clinical Impression: Influenza A Disposition: HOME SELF-CARE Condition: Good Instructions (If sedation given, give patient instructions): Influenza (ED) Additional Instructions: Follow-up with PCP. Report back to ER with any new or worsening symptoms. Alternate Motrin and Tylenol for pain and fever control. Stay well-hydrated and get plenty of rest. Take medication as prescribed. Prescriptions: Oseltamivir [Tamiflu] 75 mg PO Q12HR 5 Days #10 cap Is patient prescribed a controlled substance at d/c from ED?: No Referrals: Lev Kuhn MD [Primary Care Provider] - 1-2 days Time of Disposition: 18:06
[2022-04-21 18:13] VITALS: BP 150/87; PULSE 90; RESP 18; TEMP 98.2
== END 2022-04-21 18:12 | disposition home or self-care (01) ==
LOC: EC 14:54
DX: J10.1 Influenza due to other identified influenza virus with other respiratory manifestations (principal); E11.9 Type 2 diabetes mellitus without complications; I10 Essential (primary) hypertension; E78.5 Hyperlipidemia, unspecified; Z88.8 Allergy status to other drugs, medicaments and biological substances; Z79.82 Long term (current) use of aspirin; Z79.4 Long term (current) use of insulin; Z79.899 Other long term (current) drug therapy; Z20.822 Contact with and (suspected) exposure to COVID-19
CPT/HCPCS: 71046; 87636; 87651; 99283

== ENCOUNTER 2022-06-02 06:19 | Day surgery (SDC) | payer MEDICARE ==
[2022-06-01 09:48] VITALS: BMI 32.3
[~2022-06-02 06:19] MED LIST: LACTATED RINGERS 1,000 ML IV SCH; LIDOCAINE 1% (10MG/ML) FOR IV START INTRADERMA PRN
[2022-06-02] MEDS ORDERED: LACTATED RINGERS 1,000 ML IV ONE (06:45)
[2022-06-02 06:57] LABS: Glucose,Whole Blood 72 mg/dL (70-110)
[2022-06-02 06:59] VITALS: TEMP 98.2
[2022-06-02] MEDS ORDERED: ONDANSETRON 4 MG/2 ML VIAL IVP PRN (07:00)
[2022-06-02] MEDS ORDERED: PROPOFOL 10 MG/ML 20 ML VIAL IV ONE (07:32)
--- NOTE | 2022-06-02 07:47 | P.PCN ---
Date of Procedure: 06/02/22 Procedure(s) Performed: BRIEF HISTORY: Patient is a 67-year-old pleasant White male scheduled for an elective colonoscopy as a part of screening for colon cancer. PROCEDURE PERFORMED: Colonoscopy. PREOPERATIVE DIAGNOSIS: Screening for colon cancer. IV sedation per Anesthesia. PROCEDURE: After informed consent was obtained, the patient, was brought into the endoscopy unit. IV sedation was administered by Anesthesia under continuous monitoring. Digital rectal examination was normal. Initially the Olympus CF-160 flexible video colonoscope was then inserted in the rectum, gradually advanced into the cecum without any difficulty. Careful examination was performed as the scope was gradually being withdrawn. Ileocecal valve and the appendiceal orifice were visualized and appeared normal. Prep was excellent. Mucosa of the cecum, ascending colon, transverse colon, and blackish pigmentation consistent with mild melanosis coli. Scattered left sided diverticulosis seen. Mucosa of the descending colon, sigmoid colon, and rectum appeared normal. Retroflexion was performed in the rectum and no lesions were seen. The patient tolerated the procedure well. IMPRESSION: Normal-appearing colon from rectum to cecum no evidence of colorectal neoplasia. Mild melanosis coli Scattered sigmoid diverticulosis RECOMMENDATIONS: Findings of this examination were discussed with the patient as well as his family. He was advised to have a repeat screening colonoscopy in 10 years..
[2022-06-02 07:55] VITALS: RESP 16
[2022-06-02 08:13] VITALS: BP 124/81; PULSE 74
== END 2022-06-02 08:22 | disposition home or self-care (01) ==
LOC: ORWHC2ENDO 06:19
PROVIDERS: ATTEND Internal Medicine Gastroenterology
DX: Z12.11 Encounter for screening for malignant neoplasm of colon (principal); K57.30 Diverticulosis of large intestine without perforation or abscess without bleeding; K63.89 Other specified diseases of intestine
CPT/HCPCS: J2704; G0121; 45378

== ENCOUNTER → 2023-07-06 | Outpatient (CLI) | payer MEDICARE ==
--- NOTE | 2023-07-06 11:11 | XR ---
EXAMINATION TYPE: XR KUB DATE OF EXAM: 07/06/2023 8:55 AM CLINICAL INDICATION:Male, 68 years old with history of N20.0 Calculus kidney; [facility] COMPARISON: 04/18/2014, 01/23/2016 TECHNIQUE: One radiographic view of the abdomen was obtained. FINDINGS: The bowel gas pattern is nonspecific without dilated loops of small or large bowel. There i s no evidence for organomegaly or pneumoperitoneum. The osseous structures are intact. No abnormal calcifications are present. Fecal material and gas are demonstrated throughout the colon and rectum. IMPRESSION: No renal calculi definitively visualized. Nonspecific bowel gas pattern without radiographic evidence for acute process.
== END | disposition home or self-care (01) ==
LOC: RADXRMAIN 08:36
PROVIDERS: ATTEND Urology
DX: N20.0 Calculus of kidney (principal)
CPT/HCPCS: 74018

== ENCOUNTER 2023-08-31 08:08 | Emergency (ER) | payer MEDICARE ==
--- NOTE | 2023-08-31 08:43 | ED ---
Back Pain HPI - General Chief Complaint: Back Pain/Injury Stated Complaint: Back Pain Time Seen by Provider: 08/31/23 08:19 Source: patient, RN notes reviewed Mode of arrival: ambulatory Limitations: no limitations - History of Present Illness Initial Comments: 68-year-old male presents emergency department with chief complaint of low back pain. Patient states that he has always had some on and off issues but states that he is lifting heavy metal door in which he states that he did this on Tuesday he is having pain later that day he has pain that radiates down his right leg to his knee he denies any paresthesias denies saddle anesthesias. He denies any bowel incontinence or urinary retention. He has no complaints of abdominal pain he is taken some Tylenol and Motrin with minimal relief of symptoms. Movement does increase symptoms. Denies fevers. - Related Data Home Medications Medication Instructions Recorded Confirmed Hydrochlorothiazide 50 mg PO W/SUPPER 02/15/14 06/01/22 Cholecalciferol [Vitamin D3] 2,000 unit PO DAILY 09/05/15 06/01/22 Magnesium Oxide [Mag-Ox] 400 mg PO QID 09/05/15 06/01/22 Theralith 1 tab PO TID@0800,1600,2100 09/05/15 06/01/22 allopurinoL [Zyloprim] 300 mg PO HS 09/05/15 06/01/22 Enalapril [Vasotec] 10 mg PO BID 04/22/16 06/01/22 Aspirin EC [Ecotrin] 325 mg PO HS 03/19/18 06/01/22 Cinnamon Bark [Cinnamon] 500 mg PO BID@1200,2100 03/19/18 06/01/22 Insulin Degludec [Tresiba 60 unit SQ W/SUPPER 03/19/18 06/01/22 Flextouch U-100] Pioglitazone [Actos] 45 mg PO QAM 03/19/18 06/01/22 Turmeric Root Extract [Turmeric] 500 mg PO BID 03/19/18 06/01/22 Vitamin E (Dl,Tocopheryl Acet) 400 unit PO HS 03/19/18 06/01/22 [Vitamin E] cloNIDine HCL [Catapres] 0.1 mg PO HS 03/19/18 06/01/22 metFORMIN HCL [metFORMIN HCL ER] 1,000 mg PO BID 03/19/18 06/01/22 Empagliflozin [Jardiance] 25 mg PO QAM 06/01/22 06/01/22 Fenofibrate 72.5 mg PO QAM 06/01/22 06/01/22 Insulin Aspart [NovoLOG] 0 units SQ TID-W/MEALS PRN 06/01/22 06/01/22 Insulin Aspart [NovoLOG] 6 units SQ TID-W/MEALS 06/01/22 06/01/22 Omeprazole 40 mg PO QAM 06/01/22 06/01/22 Repaglinide [Prandin] 2 mg PO TID-W/MEALS 06/01/22 06/01/22 Previous Rx's Medication Instructions Recorded HYDROcodone/APAP 7.5-325MG [[place] 1 tab PO Q6HR PRN 3 Days #12 tab 08/31/23 7.5-325] methocarbamoL [Robaxin] 500 mg PO TID PRN #15 tab 08/31/23 Allergies Allergy/AdvReac Type Severity Reaction Status Date / Time sitagliptin [From Januvia] AdvReac abd pain Verified 08/31/23 08:18 Review of Systems ROS Statement: Those systems with pertinent positive or pertinent negative responses have been documented in the HPI. ROS Other: All systems not noted in ROS Statement are negative. Past Medical History Past Medical History: Diabetes Mellitus, Hyperlipidemia, Hypertension Additional Past Medical History / Comment(s): RENAL CALCULUS History of Any Multi-Drug Resistant Organisms: None Reported Past Surgical History: Hernia Repair Additional Past Surgical History / Comment(s): LITHOTRIPSY Past Anesthesia/Blood Transfusion Reactions: Postoperative Nausea & Vomiting (PONV) Additional Past Anesthesia/Blood Transfusion Reaction / Comment(s): STATES SEVERE Past Psychological History: No Psychological Hx Reported Smoking Status: Never smoker Past Alcohol Use History: Rare Past Drug Use History: None Reported General Exam Limitations: no limitations General appearance: alert, in no apparent distress Head exam: Present: atraumatic, normocephalic, normal inspection Eye exam: Present: normal appearance, PERRL, EOMI. Absent: scleral icterus, conjunctival injection, periorbital swelling Neck exam: Present: normal inspection. Absent: tenderness, meningismus, lymphadenopathy Respiratory exam: Present: normal lung sounds bilaterally. Absent: respiratory distress, wheezes, rales, rhonchi, stridor Cardiovascular Exam: Present: regular rate, normal rhythm, normal heart sounds. Absent: systolic murmur, diastolic murmur, rubs, gallop, clicks GI/Abdominal exam: Present: soft, normal bowel sounds. Absent: distended, tenderness, guarding, rebound, rigid Extremities exam: Present: other (Lower extremity strength equal bilaterally neurovasc intact) Neurological exam: Present: alert, oriented X3, reflexes normal. Absent: motor sensory deficit Skin exam: Present: warm, dry, intact, normal color. Absent: rash Course Vital Signs 08/31/23 08/31/23 08/31/23 08:15 09:30 10:26 Temperature 97.8 F Pulse Rate 85 86 82 Respiratory 18 17 18 Rate Blood Pressure 145/80 136/89 115/71 O2 Sat by Pulse 99 95 95 Oximetry Medical Decision Making - Medical Decision Making Was pt. sent in by a medical professional or institution (, PA, OUTSIDE ENERGY SALES REPRESENTATIVES, urgent care, hospital, or correction...) When possible be specific @ -No Did you speak to anyone other than the patient for history (EMS, parent, family, police, friend...)? What history was obtained from this source @ -No Did you review nursing and triage notes (agree or disagree)? Why? @ -I reviewed and agree with nursing and triage notes Were old charts reviewed (outside hosp., previous admission, EMS record, old EKG, old radiological studies, urgent care reports/EKG's, correction records)? Report findings @ -No old charts were reviewed Differential Diagnosis (chest pain, altered mental status, abdominal pain women, abdominal pain men, vaginal bleeding, weakness, fever, dyspnea, syncope, headache, dizziness, GI bleed, back pain, seizure, CVA, palpatations, mental health, musculoskeletal)? @ -Differential Back Pain: Strain, zoster, cauda equina syndrome, epidural abscess, vertebral osteomyelitis, discitis, fracture, subluxation, disc herniation, DJD, spinal stenosis, dissection, AAA, pancreatitis, peptic ulcer disease, pyelonephritis, kidney stone, this is not meant to be an all-inclusive list. EKG interpreted by me (3pts min.). @ -None X-rays interpreted by me (1pt min.). @ -X-ray lumbar spine showing degenerative changes CT interpreted by me (1pt min.). @ -None done U/S interpreted by me (1pt. min.). @ -None done What testing was considered but not performed or refused? (CT, X-rays, U/S, labs)? Why? @ -None What meds were considered but not given or refused? Why? @ -None Did you discuss the management of the patient with other professionals (professionals i.e. DrBenedict, PA, OUTSIDE [employer]ER[employer] SALES REPRESENTATIVES, lab, RT, psych nurse, manager social services, rn wellness, teacher, combat systems officer, case management social worker)? Give summary @ -No Was smoking cessation discussed for >3mins.? @ -No Was critical care preformed (if so, how long)? @ -No Were there social determinants of health that impacted care today? How? (Homelessness, low income, unemployed, alcoholism, drug addiction, transportation, low edu. Level, literacy, decrease access to med. care, fci, rehab)? @ -No Was there de-escalation of care discussed even if they declined (Discuss DNR or withdrawal of care, Hospice)? DNR status @ -No What co-morbidities impacted this encounter? (DM, HTN, Smoking, COPD, CAD, Cancer, CVA, ARF, Chemo, Hep., AIDS, mental health diagnosis, sleep apnea, morbid obesity)? @ -Diabetes Was patient admitted / discharged? Hospital course, mention meds given and route, prescriptions, significant lab abnormalities, going to OR and other pertinent info. @ -Does not urged patient has lumbar strain, lumbar radiculopathy will be discharged in stable condition patient has no red flag symptoms. Undiagnosed new problem with uncertain prognosis? @ -No Drug Therapy requiring intensive monitoring for toxicity (Heparin, Nitro, Insulin, Cardizem)? @ -No Were any procedures done? @ -No Diagnosis/symptom? @ -Lumbar radiculopathy Acute, or Chronic, or Acute on Chronic? @ -Acute Uncomplicated (without systemic symptoms) or Complicated (systemic symptoms)? @ -Uncomplicated Side effects of treatment? @ -No Exacerbation, Progression, or Severe Exacerbation? @ -No Poses a threat to life or bodily function? How? (Chest pain, USA, MA, pneumonia, PE, COPD, DKA, ARF, appy, cholecystitis, CVA, Diverticulitis, Homicidal, Suicidal, threat to staff... and all critical care pts) @ -No Disposition Clinical Impression: Lumbar radiculopathy Disposition: HOME SELF-CARE Condition: Stable Instructions (If sedation given, give patient instructions): Acute Low Back Pain (ED) Additional Instructions: Please return to the Emergency Department if symptoms worsen or any other concerns. Prescriptions: HYDROcodone/APAP 7.5-325MG [[place] 7.5-325] 1 tab PO Q6HR PRN 3 Days #12 tab PRN Reason: pain methocarbamoL [Robaxin] 500 mg PO TID PRN #15 tab PRN Reason: muscle spasms Is patient prescribed a controlled substance at d/c from ED?: Yes When asked, does pt state using other controlled substances?: No If prescribed controlled substance>3 days was MAPS reviewed?: Prescribed <3 Days If opioid is for acute pain is fill amount 7 days or less?: Yes If Rx opioid, was Start Talking consent form obtained?: Yes Referrals: Lev Kuhn MD [Primary Care Provider] - 1-2 days Poncho Reynolds DO [Doctor of Osteopathic Medicine] - 1-2 days Time of Disposition: 10:14
[2023-08-31] MEDS: HYDROmorphone 0.5 MG/0.5 ML SYRINGE IVP STA ×2 (08:51→09:34)
[2023-08-31 08:52] VITALS: TEMP 97.8
[2023-08-31] MEDS: KETOROLAC 15 MG/ML 1 ML VIAL IVP STA ×2 (08:52→09:34)
[2023-08-31] MEDS: ORPHENADRINE 30 MG/ML 2 ML VIAL IM STA (08:56)
--- NOTE | 2023-08-31 09:07 | XR ---
EXAMINATION TYPE: XR lumbar spine 2 or 3V DATE OF EXAM: 08/31/2023 Comparison: 06/23/2022 Clinical History: 68-year-old male with pain Findings: 5 lumbar type vertebral bodies. Mild multilevel degenerative disc disease. Prominent anterior endplat e spondylosis at L4 and L5. Mild scattered facet arthropathy. Vertebral body heights are preserved an d alignment is maintained. More moderate degenerative disc disease T11-T12. Impression: Mild multilevel degenerative disc disease. Mild scattered facet arthropathy. No vertebral compression collapse or malalignment.
[2023-08-31] MEDS: DEXAMETHASONE SOD PHOSPHATE 10 MG/ML 1 ML VIAL IVP STA (10:25)
[2023-08-31 11:00] VITALS: BP 115/71; PULSE 82; RESP 18
== END 2023-08-31 10:35 | disposition home or self-care (01) ==
LOC: EC 08:08
DX: M54.16 Radiculopathy, lumbar region (principal); E11.9 Type 2 diabetes mellitus without complications; Z79.84 Long term (current) use of oral hypoglycemic drugs; Z79.4 Long term (current) use of insulin; Z88.8 Allergy status to other drugs, medicaments and biological substances
CPT/HCPCS: 72100; 99284; 96374; 96375 ×2; 96376 ×2; 96372; J1100; J2360; J1885; J1170

== ENCOUNTER → 2023-09-08 | Outpatient (CLI) | payer MEDICARE ==
--- NOTE | 2023-09-10 08:50 | MR ---
EXAMINATION TYPE: MR lumbar spine wo con DATE OF EXAM: 09/08/2023 COMPARISON: None HISTORY: Low back pain that radiates down right leg CONTRAST: 0 mL intravenous Gadavist. TECHNIQUE: Multiplanar, multisequence images of the lumbar spine were acquired. FINDINGS: L5-S1: No significant disc bulge or disc herniation. No spinal canal stenosis. No foraminal stenos is. L4-L5: No significant disc bulge or disc herniation. No spinal canal stenosis. No foraminal stenosi s. There is some mild ligamentum flavum laxity L3-L4: There is a small right paracentral disc bulge with mild to moderate anterior thecal sac compre ssion. No AP spinal canal stenosis present. This appears to extend into the foramen. Some foraminal n arrowing is present. There may be displacement of the right L4 exiting nerve root correlate with the reticular symptoms. L2-L3: No significant disc bulge or disc herniation. No spinal canal stenosis. No foraminal stenosi s. L1-L2: No significant disc bulge or disc herniation. No spinal canal stenosis. No foraminal stenosi s. T12-L1: No significant disc bulge or disc herniation. No spinal canal stenosis. No foraminal stenos is. IMPRESSION: 1. Small right paracentral and right lateral disc herniation L3-4 with nerve root contact in the fora men and moderate thecal sac compression.
== END | disposition home or self-care (01) ==
LOC: RADMRIMAIN 14:12
PROVIDERS: ATTEND Orthopaedic Surgery
DX: M47.816 Spondylosis without myelopathy or radiculopathy, lumbar region (principal); M51.16 Intervertebral disc disorders with radiculopathy, lumbar region; M62.81 Muscle weakness (generalized)
CPT/HCPCS: 72148

== ENCOUNTER 2023-10-04 21:46 | Inpatient (IN) | payer MEDICARE ==
--- NOTE | 2023-10-04 22:20 | ED ---
Neuro HPI - General Chief Complaint: Weakness Stated Complaint: Slurred speech,Weakness left side Time Seen by Provider: 10/04/23 22:01 Source: patient Mode of arrival: wheelchair Limitations: no limitations - History of Present Illness Is the patient presenting with stroke symptoms?: Yes Last Known Well Date: 10/04/23 Last Known Well Time: 18:00 Onset/Timin -: hour(s) Initial Comments: Patient is 68-year-old man brought to have evaluation after his noticed that his speech was off and he had a left-sided facial droop. The patient had gone to sleep at 6 PM after taking gabapentin. He woke up at 8 and his sta bib that his speech was slurred and the left side of his face was drooping. She states that when she got him up to use his walker it seem like his left arm and leg were weak. Location: speech, left face History of same: No Place: home Severity: mild Quality: weak Improves With: none Worsens With: none On Anticoagulants: No Context: sudden onset Associated Symptoms: denies other symptoms Treatments Prior to Arrival: none - Related Data Home Medications: Home Medications Medication Instructions Recorded Confirmed Magnesium Oxide [Mag-Ox] 400 mg PO QID 09/05/15 10/05/23 allopurinoL [Zyloprim] 300 mg PO HS 09/05/15 10/05/23 Cinnamon Bark [Cinnamon] 500 mg PO BID@1200,2100 03/19/18 10/05/23 Insulin Degludec [Tresiba 10 unit SQ AC-BID 03/19/18 10/05/23 Flextouch U-100 Pen] Pioglitazone [Actos] 45 mg PO DAILY 03/19/18 10/05/23 Turmeric Root Extract [Turmeric] 500 mg PO BID-W/MEALS 03/19/18 10/05/23 cloNIDine HCL [Catapres] 0.1 mg PO HS 03/19/18 10/05/23 Fenofibrate 54 mg PO DAILY 06/01/22 10/05/23 Insulin Aspart [NovoLOG] See Protocol SQ ACHS PRN 06/01/22 10/05/23 Repaglinide [Prandin] 2 mg PO QID 06/01/22 10/05/23 Cholecalciferol (Vitamin D3) 50 mcg PO DAILY 10/05/23 10/05/23 [Vitamin D3 (50 Mcg = 2000 Iu)] Pantoprazole Sodium [Protonix] 40 mg PO DAILY 10/05/23 10/05/23 Tirzepatide [Mounjaro] 7.5 mg SQ DIRECTED 10/05/23 10/05/23 hydroCHLOROthiazide [Hydrodiuril] 50 mg PO W/SUPPER 10/05/23 10/05/23 methocarbamoL [Robaxin-750] 750 mg PO TID 10/05/23 10/05/23 Cyanocobalamin (Vitamin B-12) 1 tablet PO DAILY 10/07/23 10/07/23 [Vitamin B-12] Sciatiease 1 tablet PO BID 10/07/23 10/07/23 Previous Rx's Medication Instructions Recorded Aspirin 81 mg PO DAILY #30 tab 10/11/23 Atorvastatin [Lipitor] 80 mg PO DAILY #30 tab 10/11/23 Docusate [Colace] 100 mg PO BID cap 10/11/23 Famotidine [Pepcid] 20 mg PO BID #60 tab 10/11/23 Fluticasone Nasal [place] [Flonase 1 spray EA NOSTRIL DAILY #1 ml 10/11/23 Nasal [place]] Gabapentin [Neurontin] 300 mg PO TID #90 cap 10/11/23 HYDROcodone/APAP 10-325MG [[place] 1 tab PO Q4HR PRN #60 tab 10/11/23 10-325] Loratadine [Claritin] 5 mg PO DAILY #30 tab 10/11/23 Pantoprazole [Protonix] 40 mg PO AC-BRKFST #30 tab 10/11/23 Pyridoxine [Vitamin B-6] 100 mg PO DAILY #30 tab 10/11/23 Ticagrelor [Brilinta] 90 mg PO BID #60 tab 10/11/23 lisinopriL [Zestril] 20 mg PO BID #60 tab 10/11/23 Allergies/Adverse Reactions: Allergies Allergy/AdvReac Type Severity Reaction Status Date / Time sitagliptin [From ] AdvReac abd Verified 10/05/23 08:31 pain/PANCREATITIS Review of Systems ROS Statement: Those systems with pertinent positive or pertinent negative responses have been documented in the HPI. ROS Other: All systems not noted in ROS Statement are negative. Constitutional: Denies: fever, chills, weakness Eyes: Denies: eye pain, vision change ENT: Denies: hearing loss Respiratory: Denies: cough, dyspnea Cardiovascular: Denies: chest pain, palpitations, syncope Gastrointestinal: Denies: abdominal pain, nausea, vomiting Genitourinary: Denies: dysuria, hematuria Musculoskeletal: Denies: back pain Skin: Denies: rash Neurological: Reports: weakness. Denies: headache, numbness, paresthesias, confusion General Exam Limitations: no limitations General appearance: alert, in no apparent distress Head exam: Present: atraumatic, normocephalic Eye exam: Present: normal appearance. Absent: scleral icterus, conjunctival injection ENT exam: Present: normal oropharynx Neck exam: Present: normal inspection, full ROM Respiratory exam: Present: normal lung sounds bilaterally. Absent: respiratory distress, wheezes, rales, rhonchi, stridor, accessory muscle use Cardiovascular Exam: Present: regular rate, normal rhythm, normal heart sounds. Absent: systolic murmur, diastolic murmur, rubs, gallop GI/Abdominal exam: Present: soft. Absent: distended, tenderness, guarding, rebound, rigid, mass Extremities exam: Present: normal inspection, normal capillary refill. Absent: pedal edema, calf tenderness Back exam: Present: normal inspection. Absent: CVA tenderness (R), CVA tenderness (L) Neurological exam: Present: alert, oriented X3, motor sensory deficit. Absent: CN II-XII intact Expanded Cranial nerves: EOM's Intact: Normal, Gag Reflex: Normal, Tongue Deviation: Normal Cerebellar function: Finger to Nose: Normal Motor strength exam: RUE: 5, LUE: 5, RLE: 5, LLE: 5 Eye Response: (4) open spontaneously Motor Response: (6) obeys commands Verbal Response: (5) oriented Skin exam: Present: warm, dry, intact, normal color. Absent: rash Stroke MDM - Lab Data Result diagrams: 10/07/23 09:09 10/07/23 09:09 Lab Results 10/04/23 10/04/23 10/04/23 Range/Units 22:05 22:05 22:05 WBC 6.7 (3.8-10.6) k/uL RBC 4.32 (4.30-5.90) m/uL Hgb 13.7 (13.0-17.5) gm/dL Hct 41.2 (39.0-53.0) % MCV 95.3 (80.0-100.0) fL MCH 31.7 (25.0-35.0) pg MCHC 33.3 (31.0-37.0) g/dL RDW 13.5 (11.5-15.5) % Plt Count 224 (150-450) k/uL MPV 8.0 Neutrophils % 42 % Lymphocytes % 37 % Monocytes % 9 % Eosinophils % 8 % Basophils % 1 % Neutrophils # 2.8 (1.3-7.7) k/uL Lymphocytes # 2.5 (1.0-4.8) k/uL Monocytes # 0.6 (0-1.0) k/uL Eosinophils # 0.5 (0-0.7) k/uL Basophils # 0.1 (0-0.2) k/uL PT 10.6 (10.0-12.5) sec INR 1.0 (<1.2) APTT 22.8 (22.0-30.0) sec Sodium 137 (137-145) mmol/L Potassium 4.1 (3.5-5.1) mmol/L Chloride 104 (98-107) mmol/L Carbon Dioxide 29 (22-30) mmol/L Anion Gap 4 mmol/L BUN 19 (9-20) mg/dL Creatinine 0.79 (0.66-1.25) mg/dL Est GFR (CKD-EPI)AfAm >90 (>60 ml/min/1.73 sqM) Est GFR (CKD-EPI)NonAf >90 (>60 ml/min/1.73 sqM) Glucose 128 H (74-99) mg/dL POC Glucose (mg/dL) (70-110) mg/dL POC Glu Colored Liquid Plastic Applier ID Calcium 9.7 (8.4-10.2) mg/dL Total Bilirubin 0.4 (0.2-1.3) mg/dL AST 30 (17-59) U/L ALT 20 (4-49) U/L Alkaline Phosphatase 61 (38-126) U/L Creatine Kinase 47 L (55-170) U/L Troponin I (0.000-0.034) ng/mL Total Protein 6.5 (6.3-8.2) g/dL Albumin 4.1 (3.5-5.0) g/dL 10/04/23 10/04/23 Range/Units 22:05 22:21 WBC (3.8-10.6) k/uL RBC (4.30-5.90) m/uL Hgb (13.0-17.5) gm/dL Hct (39.0-53.0) % MCV (80.0-100.0) fL MCH (25.0-35.0) pg MCHC (31.0-37.0) g/dL RDW (11.5-15.5) % Plt Count (150-450) k/uL MPV Neutrophils % % Lymphocytes % % Monocytes % % Eosinophils % % Basophils % % Neutrophils # (1.3-7.7) k/uL Lymphocytes # (1.0-4.8) k/uL Monocytes # (0-1.0) k/uL Eosinophils # (0-0.7) k/uL Basophils # (0-0.2) k/uL PT (10.0-12.5) sec INR (<1.2) APTT (22.0-30.0) sec Sodium (137-145) mmol/L Potassium (3.5-5.1) mmol/L Chloride (98-107) mmol/L Carbon Dioxide (22-30) mmol/L Anion Gap mmol/L BUN (9-20) mg/dL Creatinine (0.66-1.25) mg/dL Est GFR (CKD-EPI)AfAm (>60 ml/min/1.73 sqM) Est GFR (CKD-EPI)NonAf (>60 ml/min/1.73 sqM) Glucose (74-99) mg/dL POC Glucose (mg/dL) 142 H (70-110) mg/dL POC Glu Colored Liquid Plastic Applier ID October, Calcium (8.4-10.2) mg/dL Total Bilirubin (0.2-1.3) mg/dL AST (17-59) U/L ALT (4-49) U/L Alkaline Phosphatase (38-126) U/L Creatine Kinase (55-170) U/L Troponin I <0.012 (0.000-0.034) ng/mL Total Protein (6.3-8.2) g/dL Albumin (3.5-5.0) g/dL - NIH Stroke Scale 1a. Level of Consciousness: (0) alert 1b. LOC Questions: (0) answers correctly 1c. LOC Commands: (0) performs tasks correctly 2. Best Gaze: (0) normal 3. Visual: (0) no visual loss 4. Facial Palsy: (1) minor paralysis 5a. Motor Arm Left: (0) no drift 5b. Motor Arm Right: (0) no drift 6a. Motor Leg Left: (0) no drift 6b. Motor Leg Right: (0) no drift 7. Limb Ataxia: (0) absent 8. Sensory: (0) normal 9. Best Language: (0) no aphasia 10. Dysarthria: (1) mild/moderate dysarthria 11. Extinction/Inattention: (0) no abnormality - Thrombolytic Inclusion/Exclusion Thrombolytic Contraindications: Risks Outweigh Benefits - Medical Decision Making Patient is 68-year-old man who is here with mild dysarthria and left facial droop. The case is discussed with the stroke interventional list, the images were reviewed, the case was discussed and it is felt that the risks outweigh benefits for patient with very mild dysarthria and very mild facial droop. The patient will be admitted to have further neurology evaluation and treatment. The patient had chest x-ray that I interpreted as negative for acute infiltrate, pneumothorax, congestive heart failure The patient had CT of the brain that I interpreted as negative for acute intracranial hemorrhage and negative for acute bony trauma Was pt. sent in by a medical professional or institution (, PA, CONTINUITY WRITER, urgent care, hospital, or long-term...) When possible be specific @ -[No] Did you speak to anyone other than the patient for history (EMS, parent, family, police, friend...)? What history was obtained from this source @ -[The patient's did give history Did you review nursing and triage notes (agree or disagree)? Why? @ -[I reviewed and agree with nursing and triage notes] Were old charts reviewed (outside hosp., previous admission, EMS record, old EKG, old radiological studies, urgent care reports/EKG's, long-term records)? Report findings @ -[No old charts were reviewed] Differential Diagnosis (chest pain, altered mental status, abdominal pain women, abdominal pain men, vaginal bleeding, weakness, fever, dyspnea, syncope, headache, dizziness, GI bleed, back pain, seizure, CVA, palpatations, mental health, musculoskeletal)? @ -[Differential CVA Ischemic stroke, hemorrhagic stroke, brain tumor, atypical migraine, Wernicke's encephalopathy, seizure, multiple sclerosis, meningitis, encephalitis, hypoglycemia, Guillain-Santiago, electrolytes disturbance, myasthenia gravis.... This is not meant to be an all-inclusive list EKG interpreted by me (3pts min.). @ -[I Interpreted as above] X-rays interpreted by me (1pt min.). @ -[I interpreted as above CT interpreted by me (1pt min.). @ -[Interpreted as above U/S interpreted by me (1pt. min.). @ -[None done] What testing was considered but not performed or refused? (CT, X-rays, U/S, labs)? Why? @ -[None] What meds were considered but not given or refused? Why? @ -[None] Did you discuss the management of the patient with other professionals (professionals i.e. , PA, CONTINUITY WRITER, lab, RT, psych nurse, director social, geophysical laboratory supervisor, teacher, small business banking officer, family caseworker)? Give summary @ -[Case discussed with both the stroke team and admitting physician and treatment recommendations incorporated Was smoking cessation discussed for >3mins.? @ -[No] Was critical care preformed (if so, how long)? @ -[Yes, 35 minutes Were there social determinants of health that impacted care today? How? (Homelessness, low income, unemployed, alcoholism, drug addiction, transportation, low edu. Level, literacy, decrease access to med. care, residential, rehab)? @ -[No] Was there de-escalation of care discussed even if they declined (Discuss DNR or withdrawal of care, Hospice)? DNR status @ -[No] What co-morbidities impacted this encounter? (DM, HTN, Smoking, COPD, CAD, Cancer, CVA, ARF, Chemo, Hep., AIDS, mental health diagnosis, sleep apnea, morbid obesity)? @ -[Hypertension and diabetes Was patient admitted / discharged? Hospital course, mention meds given and route, prescriptions, significant lab abnormalities, going to OR and other pertinent info. @ -[As above, case discussed with stroke team and at this point their opinion is risks outweigh benefits for relatively mild stroke. This was conveyed to patient and family. The patient is admitted to have further neurology consultation Undiagnosed new problem with uncertain prognosis? @ -[No] Drug Therapy requiring intensive monitoring for toxicity (Heparin, Nitro, Insulin, Cardizem)? @ -[No] Were any procedures done? @ -[No] Diagnosis/symptom? @ -[Acute dysarthria suspected due to acute ischemic stroke Acute, or Chronic, or Acute on Chronic? @ -[Acute Uncomplicated (without systemic symptoms) or Complicated (systemic symptoms)? @ -[default] Side effects of treatment? @ -[No] Exacerbation, Progression, or Severe Exacerbation? @ -[No] Poses a threat to life or bodily function? How? (Chest pain, [place], [place], pneumonia, PE, COPD, DKA, ARF, appy, cholecystitis, CVA, Diverticulitis, Homicidal, Suicidal, threat to staff... and all critical care pts) @ -Yes there is risk to patient's speech and small risk to life associated with stroke - EKG Data -: EKG Interpreted by Me EKG shows normal: sinus rhythm, axis (Left axis deviation), QRS complexes (Voltage QRS complex) Rate: normal (74 bpm) Past Medical History Past Medical History: Diabetes Mellitus, Hyperlipidemia, Hypertension Additional Past Medical History / Comment(s): RENAL CALCULUS History of Any Multi-Drug Resistant Organisms: None Reported Past Surgical History: Hernia Repair Additional Past Surgical History / Comment(s): LITHOTRIPSY Past Anesthesia/Blood Transfusion Reactions: Postoperative Nausea & Vomiting (PONV) Additional Past Anesthesia/Blood Transfusion Reaction / Comment(s): STATES SEVER E Past Psychological History: No Psychological Hx Reported Smoking Status: Never smoker Past Alcohol Use History: Rare Past Drug Use History: None Reported Course Vital Signs 10/04/23 10/04/23 10/04/23 21:48 22:30 23:00 Temperature 97.4 F L Pulse Rate 79 80 79 Respiratory 18 20 16 Rate Blood Pressure 134/84 130/79 130/74 O2 Sat by Pulse 98 95 96 Oximetry 10/04/23 10/04/23 10/04/23 23:15 23:30 23:45 Temperature Pulse Rate 77 76 77 Respiratory 19 21 19 Rate Blood Pressure 129/74 130/74 128/74 O2 Sat by Pulse 96 96 96 Oximetry 10/05/23 10/05/23 10/05/23 00:00 00:30 01:00 Temperature Pulse Rate 75 78 79 Respiratory 19 12 19 Rate Blood Pressure 150/81 149/81 147/75 O2 Sat by Pulse 96 96 Oximetry 10/05/23 10/05/23 10/05/23 01:30 02:00 02:30 Temperature Pulse Rate 81 82 86 Respiratory 13 12 13 Rate Blood Pressure 141/77 125/79 134/80 O2 Sat by Pulse 95 Oximetry 10/05/23 10/05/23 10/05/23 03:00 03:30 05:30 Temperature Pulse Rate 93 89 88 Respiratory 12 14 14 Rate Blood Pressure 123/91 135/79 96/62 O2 Sat by Pulse 95 95 95 Oximetry 10/05/23 10/05/23 10/05/23 07:42 09:24 10:00 Temperature 97.6 F Pulse Rate 73 79 86 Respiratory 22 20 16 Rate Blood Pressure 144/80 138/79 143/69 O2 Sat by Pulse 95 95 95 Oximetry 10/05/23 10/05/23 10/05/23 12:00 14:00 17:00 Temperature Pulse Rate 81 84 86 Respiratory 20 16 18 Rate Blood Pressure 142/64 147/81 127/75 O2 Sat by Pulse 98 98 96 Oximetry 10/05/23 19:00 Temperature Pulse Rate 91 Respiratory 16 Rate Blood Pressure 154/90 O2 Sat by Pulse 98 Oximetry Disposition Clinical Impression: Dysarthria, Facial droop Disposition: ADMITTED IP TO THIS [facility] Condition: Good Is patient prescribed a controlled substance at d/c from ED?: No
[2023-10-04 22:24] LABS: Glucose,Whole Blood 142 mg/dL (70-110)
[2023-10-04 22:38] LABS: ALT 20 U/L (4-49); AST 30 U/L (17-59); African American GFR (CKD) >90 (>60 ml/min/1.73 sqM); Albumin 4.1 g/dL (3.5-5.0); Alkaline Phosphatase 61 U/L (38-126); Anion Gap 4 mmol/L; Blood Urea Nitrogen 19 mg/dL (9-20); Calcium 9.7 mg/dL (8.4-10.2); Carbon Dioxide 29 mmol/L (22-30); Chloride 104 mmol/L (98-107); Creatine Kinase 47 U/L (55-170); Glucose 128 mg/dL (74-99); Non-African American GFR(CKD) >90 (>60 ml/min/1.73 sqM); Potassium 4.1 mmol/L (3.5-5.1); Sodium 137 mmol/L (137-145); Total Bilirubin 0.4 mg/dL (0.2-1.3); Total Protein 6.5 g/dL (6.3-8.2)
[2023-10-04 22:40] LABS: Partial Thromboplastin Time 22.8 sec (22.0-30.0); Prothrombin Time 10.6 sec (10.0-12.5)
--- NOTE | 2023-10-04 22:42 | CT ---
EXAM: CT Head Without Intravenous Contrast CLINICAL HISTORY: ITS.REASON CT Reason: Neuro deficit, acute, stroke suspected TECHNIQUE: Axial computed tomography images of the head/brain without intravenous contrast. This CT exam was performed using one or more of the following dose reduction techniques: automated exposure control, adjustment of the mA and/or kV according to patient size, and/or use of iterative reconstruction technique. COMPARISON: No relevant prior studies available. FINDINGS: Brain: There is age-appropriate parenchymal volume. Periventricular and deep cerebral white matter hypoattenuation most likely reflects chronic small vessel ischemic change. Villeda-white matter differentiation is maintained. There is no hemorrhage, mass effect, parenchymal edema, or midline shift. Chronic lacunar infarcts bilateral basal ganglia. Ventricles: Unremarkable. No hydrocephalus. Bones/joints: Unremarkable. No acute fracture. Soft tissues: Unremarkable. Vasculature: Intracranial atherosclerosis. No hyperdense vessel sign. Sinuses: Unremarkable as visualized. Mastoid air cells: Unremarkable as visualized. No mastoid effusion. Orbits: Bilateral lens replacements. IMPRESSION: No acute intracranial process.
[2023-10-04 22:49] LABS: Basophils # (A) 0.1 k/uL (0-0.2); Basophils % (A) 1 %; Eosinophils # (A) 0.5 k/uL (0-0.7); Eosinophils % (A) 8 %; HCT 41.2 % (39.0-53.0); HGB 13.7 gm/dL (13.0-17.5); Lymphocytes # (A) 2.5 k/uL (1.0-4.8); Lymphocytes % (A) 37 %; MCH 31.7 pg (25.0-35.0); MCHC 33.3 g/dL (31.0-37.0); MCV 95.3 fL (80.0-100.0); Monocytes # (A) 0.6 k/uL (0-1.0); Monocytes % (A) 9 %; Neutrophils # (A) 2.8 k/uL (1.3-7.7); Neutrophils % (A) 42 %; Platelet Count 224 k/uL (150-450); RBC 4.32 m/uL (4.30-5.90); RDW 13.5 % (11.5-15.5); WBC 6.7 k/uL (3.8-10.6)
--- NOTE | 2023-10-04 23:02 | CT ---
EXAM: CT Angiography Head With Intravenous Contrast CLINICAL HISTORY: ITS.REASON CT Reason: Neuro deficit, acute, stroke suspected TECHNIQUE: Axial computed tomographic angiography images of the head with intravenous contrast. CTDI is 16.8 mGy and DLP is 760.8 mGy-cm. This CT exam was performed using one or more of the following dose reduction techniques: automated exposure control, adjustment of the mA and/or kV according to patient size, and/or use of iterative reconstruction technique. MIP reconstructed images were created and reviewed. COMPARISON: CT head 10/04/23 FINDINGS: Right internal carotid artery: No acute findings. Intracranial segment is patent with no significant stenosis. No aneurysm. Right anterior cerebral artery: Absent right A1 segment with filling of the right ANTIONE via the anterior communicating artery. No significant stenosis. No occlusion. No aneurysm. Right middle cerebral artery: Unremarkable. No occlusion or significant stenosis. No aneurysm. Right posterior cerebral artery: Unremarkable. No occlusion or significant stenosis. No aneurysm. Right vertebral artery: Intracranial right vertebral artery is supplied by a persistent right hypoglossal artery. Left internal carotid artery: No acute findings. Intracranial segment is patent with no significant stenosis. No aneurysm. Left anterior cerebral artery: Unremarkable. No occlusion or significant stenosis. No aneurysm. Left middle cerebral artery: Unremarkable. No occlusion or significant stenosis. No aneurysm. Left posterior cerebral artery: Unremarkable. No occlusion or significant stenosis. No aneurysm. Left vertebral artery: Left vertebral artery appears to terminate in PICA. Basilar artery: Unremarkable. No occlusion or significant stenosis. No aneurysm. IMPRESSION: 1. Patent intracranial circulation. 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 EXAM: CT Angiography Neck With Intravenous Contrast CLINICAL HISTORY: ITS.REASON CT Reason: Neuro deficit, acute, stroke suspected TECHNIQUE: Routine carotid CT angiography protocol was performed with intravenous contrast. NASCET criteria using the distal ICAs for comparison were used for evaluation of stenoses. CTDI is 16.8 mGy and DLP is 760.8 mGy-cm. This CT exam was performed using one or more of the following dose reduction techniques: automated exposure control, adjustment of the mA and/or kV according to patient size, and/or use of iterative reconstruction technique. MIP reconstructed images were created and reviewed. COMPARISON: None. FINDINGS: VASCULATURE: Right common carotid artery: Unremarkable. No occlusion or significant stenosis. No dissection. Right internal carotid artery: Extracranial segment is patent with no occlusion or significant stenosis. No dissection. It gives rise to a persistent right hypoglossal artery distally. Right external carotid artery: Unremarkable. No occlusion. Right vertebral artery: Right vertebral artery is hypoplastic throughout, likely developmental. No superimposed dissection, stenosis, or occlusion. 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 Left common carotid artery: Unremarkable. No occlusion or significant stenosis. No dissection. Left internal carotid artery: Unremarkable. Extracranial segment is patent with no occlusion or significant stenosis. No dissection. Left external carotid artery: Unremarkable. No occlusion. Left vertebral artery: Left vertebral artery is hypoplastic throughout, likely developmental. No superimposed dissection, stenosis, or occlusion. NECK: Bones/joints: Unremarkable. No acute fracture. Soft tissues: Unremarkable. Lung apices: Clear. CAROTID STENOSIS REFERENCE USING NASCET CRITERIA: % ICA stenosis = (1 - narrowest ICA diameter/diameter of distal cervical ICA) x 100. Mild - <50% stenosis. Moderate - 50-69% stenosis. Severe - 70-94% stenosis. Near occlusion - 95-99% stenosis. Occluded - 100% stenosis. 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 No dissection, significant stenosis, or occlusion in either carotid artery.
--- NOTE | 2023-10-04 23:07 | XR ---
EXAM: XR Chest, 2 Views CLINICAL HISTORY: ITS.REASON XR Reason: altered mental status TECHNIQUE: Frontal and lateral views of the chest. COMPARISON: No relevant prior studies available. FINDINGS: Lungs: Unremarkable. No consolidation. Pleural space: Unremarkable. No pleural effusion or pneumothorax. Heart: Unremarkable. No cardiomegaly or pulmonary vascular congestion. Bones/joints: No acute fracture. No dislocation. IMPRESSION: No evidence of acute cardiopulmonary disease.
[2023-10-04] MEDS ORDERED: methocarbamoL 500 MG TAB PO PRN (23:32)
[2023-10-04] MEDS ORDERED: HYDROcodone/APAP 7.5-325MG 1 EACH TAB PO PRN (23:32)
[2023-10-05] MEDS: ASPIRIN 325 MG TAB PO STA (00:10)
[2023-10-05] MEDS: SODIUM CHLORIDE 0.9% 1,000 ML IV SCH (00:11)
[2023-10-05] MEDS ORDERED: INSULIN ASPART (NovoLOG) 100 UNIT/ML VIAL SQ SCH (07:30)
[2023-10-05 07:53] LABS: Glucose,Whole Blood 115 mg/dL (70-110)
[2023-10-05] MEDS ORDERED: metFORMIN 500 MG TAB PO SCH (09:00)
[2023-10-05] MEDS ORDERED: DAPAGLIFLOZIN PROPANEDIOL 10 MG TABLET PO SCH (09:00)
[2023-10-05] MEDS: FAMOTIDINE 20 MG TAB PO SCH (09:19)
[2023-10-05] MEDS: CHOLECALCIFEROL 25 MCG (1000 IU) TABLET PO SCH (09:19)
[2023-10-05] MEDS: ASPIRIN 325 MG TAB PO SCH (09:19)
[2023-10-05] MEDS: PANTOPRAZOLE 40 MG TABLET PO SCH (09:19)
[2023-10-05] MEDS: FENOFIBRATE 54 MG TAB PO SCH (09:19)
[2023-10-05] MEDS: lisinopriL 20 MG TAB PO SCH (09:19)
[2023-10-05] MEDS: MAGNESIUM OXIDE 400 MG TAB PO SCH (09:20)
[2023-10-05] MEDS: HYDROcodone/APAP 10-325MG 1 EACH TAB PO PRN (09:20)
[2023-10-05] MEDS: PIOGLITAZONE 45 MG TAB PO SCH (09:20)
[2023-10-05] MEDS: methocarbamoL 750 MG TAB PO SCH (09:23)
[2023-10-05] MEDS: REPAGLINIDE 1 MG TAB PO SCH ×2 (09:26→12:30)
[2023-10-05 09:50] LABS: Chol/HDL Ratio 3.43 Ratio; LDL Cholesterol,Calculated 70.7 mg/dL (0.0-131.0)
[2023-10-05] MEDS ORDERED: DEXTROSE 50% SYRINGE 50 ML IVP PRN ×2 (10:27)
--- NOTE | 2023-10-05 11:31 | P.HPIM ---
History of Present Illness H&P Date: 10/05/23 History of present illness; patient is 68-year-old gentleman past medical history significant for hypertension, hyperlipidemia, diabetes mellitus, chronic back pain who presented to the ER for facial droop and slurred speech. Patient apparently was all right yesterday around 6 PM according to his when he went to sleep after taking his medications. Patient woke up at 8 PM and noted that the patient had slurred speech, she also reported that it was left- sided facial droop. also noticed that the left side was weaker and while using his walker he could noticed that his left arm and leg were weak. There was no complaint of lightheaded and dizziness. There is no complaint of fall. There was no complaint of fecal incontinence. There was no complaint of fever or chills. Patient history of chronic back pain is being followed up outpatient by orthopedic spine and is planning laminectomy in the future. Because of the slurred speech and left-sided facial droop patient was brought to the ER Initial lab work done in the ER showed WBC 6.7, hemoglobin 13.7, platelet count 224, sodium 137, potassium 4.1, BUN 19, creatinine 0.79, glucose 128, AST 30, ALT 20, CK 47, troponin 0.012 triglycerides 128, cholesterol 136, LDL 70 EKG done in the ER showed heart rate of 74, no ST segment elevation or depression seen, no T-wave inversions seen. 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 Patient admitted to internal medicine service REVIEW OF SYSTEMS: CONSTITUTIONAL: No fever, no malaise, no fatigue. HEENT: No recent visual problems or hearing problems. Denied any sore throat. CARDIOVASCULAR: No chest pain, orthopnea, PND, no palpitations, no syncope. PULMONARY: No shortness of breath, no cough, no hemoptysis. GASTROINTESTINAL: No diarrhea, no nausea, no vomiting, no abdominal pain. NEUROLOGICAL: As mentioned HPI HEMATOLOGICAL: Denies any bleeding or petechiae. GENITOURINARY: Denies any burning micturition, frequency, or urgency. MUSCULOSKELETAL/RHEUMATOLOGICAL: Denies any joint pain, swelling, or any muscle pain. ENDOCRINE: Denies any polyuria or polydipsia. The rest of the 14-point review of systems is negative. PHYSICAL EXAMINATION: GENERAL: The patient is alert and oriented x3, not in any acute distress. Well developed, well nourished. HEENT: Pupils are round and equally reacting to light. EOMI. No scleral icterus. No conjunctival pallor. Normocephalic, atraumatic. No pharyngeal erythema. No t hyromegaly. CARDIOVASCULAR: S1 and S2 present. No murmurs, rubs, or gallops. PULMONARY: Chest is clear to auscultation, no wheezing or crackles. ABDOMEN: Soft, nontender, nondistended, normoactive bowel sounds. No palpable organomegaly. MUSCULOSKELETAL: No joint swelling or deformity. EXTREMITIES: No cyanosis, clubbing, or pedal edema. NEUROLOGICAL: Facial droop, muscle strength is 3 x 5 in left side and 5 x 5 in right side SKIN: No rashes. Assessment and plan Acute CVA Hypertension Hyper lipidemia Diabetes mellitus Monitor vital signs Monitor CBC Monitor CMP Continue telemetry monitoring Continue neurochecks Allow permissive hypertension for next 24 to 48 hours, treat for blood pressure more than 190/80 Continue aspirin, Lipitor Ordered MRI brain ordered 2D echo Monitor blood sugar levels, start sliding scale insulin Consult neurology Consult speech, PT OT Labs and medication were reviewed.. Continue same treatment. Continue with symptomatic treatment. Resume home medication. Monitor labs and vitals. DVT and GI prophylaxis. Further recommendations as per clinical course of the patient Dictation was produced using [employer] dictation software. please excuse any grammatical, word or spelling errors. Past Medical History Past Medical History: Diabetes Mellitus, Hyperlipidemia, Hypertension Additional Past Medical History / Comment(s): RENAL CALCULUS History of Any Multi-Drug Resistant Organisms: None Reported Past Surgical History: Hernia Repair Additional Past Surgical History / Comment(s): LITHOTRIPSY Past Anesthesia/Blood Transfusion Reactions: Postoperative Nausea & Vomiting (PONV) Additional Past Anesthesia/Blood Transfusion Reaction / Comment(s): STATES SEVERE Past Psychological History: No Psychological Hx Reported Smoking Status: Never smoker Past Alcohol Use History: Rare Past Drug Use History: None Reported Medications and Allergies Home Medications Medication Instructions Recorded Confirmed Type Magnesium Oxide [Mag-Ox] 400 mg PO QID 09/05/15 10/05/23 History allopurinoL [Zyloprim] 300 mg PO HS 09/05/15 10/05/23 History Enalapril [Vasotec] 10 mg PO BID-W/MEALS 04/22/16 10/05/23 History Aspirin EC [Ecotrin] 325 mg PO DIRECTED 03/19/18 10/05/23 History Cinnamon Bark [Cinnamon] 500 mg PO BID@1200,2100 03/19/18 10/05/23 History Insulin Degludec [Tresiba 10 unit SQ AC-BID 03/19/18 10/05/23 History Flextouch U-100] Pioglitazone [Actos] 45 mg PO DAILY 03/19/18 10/05/23 History Turmeric Root Extract [Turmeric] 500 mg PO BID-W/MEALS 03/19/18 10/05/23 History cloNIDine HCL [Catapres] 0.1 mg PO HS 03/19/18 10/05/23 History Fenofibrate 54 mg PO DAILY 06/01/22 10/05/23 History Insulin Aspart [NovoLOG] See Protocol SQ ACHS PRN 06/01/22 10/05/23 History Repaglinide [Prandin] 2 mg PO QID 06/01/22 10/05/23 History Atorvastatin [Lipitor] 40 mg PO W/SUPPER 10/05/23 10/05/23 History Cholecalciferol (Vitamin D3) 50 mcg PO DAILY 10/05/23 10/05/23 History [Vitamin D3 (50 Mcg = 2000 Iu)] Gabapentin [Neurontin] 400 mg PO TID 10/05/23 10/05/23 History HYDROcodone/APAP 10-325MG [[place] 1 tab PO Q4HR PRN 10/05/23 10/05/23 History 10-325] Pantoprazole Sodium [Protonix] 40 mg PO DAILY 10/05/23 10/05/23 History Pyridoxine HCl (Vitamin B6) 100 mg PO DAILY 10/05/23 10/05/23 History [Vitamin B-6] Tirzepatide [Mounjaro] 7.5 mg SQ DIRECTED 10/05/23 10/05/23 History hydroCHLOROthiazide [Hydrodiuril] 50 mg PO W/SUPPER 10/05/23 10/05/23 History methocarbamoL [Robaxin-750] 750 mg PO TID 10/05/23 10/05/23 History Allergies Allergy/AdvReac Type Severity Reaction Status Date / Time sitagliptin [From ] AdvReac abd Verified 10/05/23 08:31 pain/PANCREATITIS Physical Exam Vitals: Vital Signs Temp Pulse Resp BP Pulse Ox 10/05/23 09:24 79 20 138/79 95 10/05/23 07:42 97.6 F 73 22 144/80 95 10/05/23 05:30 88 14 96/62 95 10/05/23 03:30 89 14 135/79 95 10/05/23 03:00 93 12 123/91 95 10/05/23 02:30 86 13 134/80 10/05/23 02:00 82 12 125/79 10/05/23 01:30 81 13 141/77 95 10/05/23 01:00 79 19 147/75 96 10/05/23 00:30 78 12 149/81 96 10/05/23 00:00 75 19 150/81 10/04/23 23:45 77 19 128/74 96 10/04/23 23:30 76 21 130/74 96 10/04/23 23:15 77 19 129/74 96 10/04/23 23:00 79 16 130/74 96 10/04/23 22:30 80 20 130/79 95 10/04/23 21:48 97.4 F L 79 18 134/84 98 Intake and Output 10/04/23 10/05/23 10/05/23 22:59 06:59 14:59 Other: Weight 90.718 kg Results CBC & Chem 7: 10/04/23 22:05 10/04/23 22:05 Labs: Abnormal Lab Results - Last 24 Hours (Table) 10/04/23 10/04/23 10/05/23 Range/Units 22:05 22:21 03:33 Glucose 128 H (74-99) mg/dL POC Glucose (mg/dL) 142 H (70-110) mg/dL Creatine Kinase 47 L (55-170) U/L HDL Cholesterol 39.70 L (40.00-60.00) mg/dL 10/05/23 Range/Units 07:51 Glucose (74-99) mg/dL POC Glucose (mg/dL) 115 H (70-110) mg/dL Creatine Kinase (55-170) U/L HDL Cholesterol (40.00-60.00) mg/dL
[2023-10-05] MEDS: INSULIN ASPART (NovoLOG) 100 UNIT/ML VIAL SQ SCH (14:29)
[2023-10-05] MEDS: GABAPENTIN 300 MG CAP PO SCH (15:23)
[2023-10-05] MEDS ORDERED: GABAPENTIN 400 MG CAP PO SCH (16:00)
[2023-10-05] MEDS ORDERED: hydroCHLOROthiazide 25 MG TAB PO SCH (17:30)
[2023-10-05] MEDS ORDERED: CLOPIDOGREL 75 MG TAB PO SCH (19:30)
--- NOTE | 2023-10-05 19:50 | P.CNNES ---
History of Present Illness Consult date: 10/05/23 Requesting physician: Carlos Nava Reason for Consult: dysarthria and facial droop History of Present Illness: Patient is a 68-year-old right-handed male with history of hypertension, diabetes, degenerative disc disease, came to the hospital yesterday at 9:46 PM for strokelike symptoms. Patient's and daughter were also present, who also provided with a history. Patient has been seeing orthopedic surgery for the last 6 weeks for sciatic pain involving the right lower back and leg, with weakness of the right leg, which was felt to be related to disc disease. He has developed right leg weakness from back issues. He walks with a walker. Patient is scheduled for back surgery on 10/10/2023. Yesterday patient went for a walk at around 4 PM with his walker. He was doing well. When he was coming back, he noticed weakness of the left leg. He took a nap, and went to sleep at 6 PM. When he woke up at 8 PM, he had trouble getting out of bed. His speech was slurred, different, not as clear, left facial droop and left arm weakness. He could not get out of chair. Therefore he was brought to the hospital. Vital signs on arrival blood pressure 134/84 pulse of 79 temperature 97.4. Bl ood test shows normal CBC, PT PTT, normal CMP. CK is normal troponin negative. CT head revealed no acute process. I personally reviewed CT head, agree with the findings. Old lacunar in the left basal ganglia. Chest x-ray shows no evidence of acute cardiopulmonary disease. EKG with sinus rhythm. Patient has history of diabetes for 25 years. He is a non-smoker, drinks alcohol very little. No previous history of strokes or TIA. Home medications includes aspirin 325 mg daily, Lipitor 40 mg, vitamin B6 100 mg. Also on multiple medication for diabetes, blood pressure. Patient stopped aspirin 2 days ago, and the last dose he received was on 10/02/2023. He skipped aspirin on Tuesday, and admitted to the hospital on 10/04/2023 with stroke symptoms. Patient's mother had history of a cerebral aneurysm. She had an acute [place] for which she received tPA, then developed cerebral hemorrhage and . Patient's paternal grandmother had a stroke. Review of Systems Constitutional: Denies chills, Denies fever Eyes: denies blurred vision, denies diplopia, denies pain, denies loss of vision Ears: deny: decreased hearing, ear discharge Ears, nose, mouth and throat: Denies headache, Denies sore throat Cardiovascular: Denies chest pain, Denies shortness of breath Respiratory: Denies cough, Denies excessive sputum Gastrointestinal: Denies abdominal pain, Denies diarrhea, Denies nausea, Denies vomiting Genitourinary: Denies dysuria, Denies incontinence, Denies urinary hesitancy Musculoskeletal: Reports low back pain, Denies neck pain Integumentary: Denies pruritus, Denies rash Neurological: Reports as per HPI Psychiatric: Denies anxiety, Denies depression Hematologic/Lymphatic: Denies easy bleeding, Denies easy bruising Past Medical History Past Medical History: Diabetes Mellitus, Hyperlipidemia, Hypertension Additional Past Medical History / Comment(s): RENAL CALCULUS History of Any Multi-Drug Resistant Organisms: None Reported Past Surgical History: Hernia Repair Additional Past Surgical History / Comment(s): LITHOTRIPSY Past Anesthesia/Blood Transfusion Reactions: Postoperative Nausea & Vomiting (PONV) Additional Past Anesthesia/Blood Transfusion Reaction / Comment(s): STATES SEVERE Past Psychological History: No Psychological Hx Reported Smoking Status: Never smoker Past Alcohol Use History: Rare Past Drug Use History: None Reported Medications and Allergies Home Medications Medication Instructions Recorded Confirmed Type Magnesium Oxide [Mag-Ox] 400 mg PO QID 09/05/15 10/05/23 History allopurinoL [Zyloprim] 300 mg PO HS 09/05/15 10/05/23 History Enalapril [Vasotec] 10 mg PO BID-W/MEALS 04/22/16 10/05/23 History Aspirin EC [Ecotrin] 325 mg PO DIRECTED 03/19/18 10/05/23 History Cinnamon Bark [Cinnamon] 500 mg PO BID@1200,2100 03/19/18 10/05/23 History Insulin Degludec [Tresiba 10 unit SQ AC-BID 03/19/18 10/05/23 History Flextouch U-100] Pioglitazone [Actos] 45 mg PO DAILY 03/19/18 10/05/23 History Turmeric Root Extract [Turmeric] 500 mg PO BID-W/MEALS 03/19/18 10/05/23 History cloNIDine HCL [Catapres] 0.1 mg PO HS 03/19/18 10/05/23 History Fenofibrate 54 mg PO DAILY 06/01/22 10/05/23 History Insulin Aspart [NovoLOG] See Protocol SQ ACHS PRN 06/01/22 10/05/23 History Repaglinide [Prandin] 2 mg PO QID 06/01/22 10/05/23 History Atorvastatin [Lipitor] 40 mg PO W/SUPPER 10/05/23 10/05/23 History Cholecalciferol (Vitamin D3) 50 mcg PO DAILY 10/05/23 10/05/23 History [Vitamin D3 (50 Mcg = 2000 Iu)] Gabapentin [Neurontin] 400 mg PO TID 10/05/23 10/05/23 History HYDROcodone/APAP 10-325MG [[place] 1 tab PO Q4HR PRN 10/05/23 10/05/23 History 10-325] Pantoprazole Sodium [Protonix] 40 mg PO DAILY 10/05/23 10/05/23 History Pyridoxine HCl (Vitamin B6) 100 mg PO DAILY 10/05/23 10/05/23 History [Vitamin B-6] Tirzepatide [Mounjaro] 7.5 mg SQ DIRECTED 10/05/23 10/05/23 History hydroCHLOROthiazide [Hydrodiuril] 50 mg PO W/SUPPER 10/05/23 10/05/23 History methocarbamoL [Robaxin-750] 750 mg PO TID 10/05/23 10/05/23 History Allergies Allergy/AdvReac Type Severity Reaction Status Date / Time sitagliptin [From ] AdvReac abd Verified 10/05/23 08:31 pain/PANCREATITIS Physical Examination - Vital Signs Vital Signs: Vital Signs Temp Pulse Resp BP Pulse Ox 10/05/23 09:24 79 20 138/79 95 10/05/23 07:42 97.6 F 73 22 144/80 95 10/05/23 05:30 88 14 96/62 95 10/05/23 03:30 89 14 135/79 95 10/05/23 03:00 93 12 123/91 95 10/05/23 02:30 86 13 134/80 10/05/23 02:00 82 12 125/79 10/05/23 01:30 81 13 141/77 95 10/05/23 01:00 79 19 147/75 96 10/05/23 00:30 78 12 149/81 96 10/05/23 00:00 75 19 150/81 10/04/23 23:45 77 19 128/74 96 10/04/23 23:30 76 21 130/74 96 10/04/23 23:15 77 19 129/74 96 10/04/23 23:00 79 16 130/74 96 10/04/23 22:30 80 20 130/79 95 10/04/23 21:48 97.4 F L 79 18 134/84 98 Patient is an elderly male, in no acute distress. Patient is alert awake oriented to time place and person. Speech is mild to moderately dysarthric and language functions are normal. Patient can name and repeat very well. Attention, concentration and fund of knowledge is adequate. Detailed cognitive function testing deferred. On cranial nerve examination, pupils are equal, round and reacting to light, visual pulido are full on confrontation, with no neglect on double simultaneous stimulation. Extraocular muscles are intact with no nystagmus. Patient has flattening of the left nasolabial fold, his tongue protrudes to the midline. Palatal elevation and sensation normal, hearing and shoulder shrug normal, facial sensation normal. On muscle strength testing, there is left pronator drift, about 15 to 20 degree, does not hit the bed. Patient also has very mild left leg drift. 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 Deep tendon reflexes are (right/left) biceps 1/1, brachioradialis 1/1, knees 3/2, plantars down on the right, upgoing on the left. Sensory to touch is equal with no neglect on double simultaneous stimulation. Cerebellar function showed mild ataxia for [id number] testing only with the left side, but not on the right side. No ataxia for [id number] testing on either side. Tone and bulk of muscles normal. Gait deferred.. On general examination, there is no carotid bruit or murmur, S1-S2 audible. Chest is clear on consultation. Abdomen is soft nontender. No organomegaly, bowel sounds present. Peripheral pulses are present. No peripheral edema. Results - Laboratory Findings CBC and BMP: 10/04/23 22:05 10/04/23 22:05 Abnormal Lab Findings: Abnormal Labs 10/04/23 10/04/23 10/05/23 22:05 22:21 03:33 Glucose 128 H POC Glucose (mg/dL) 142 H Creatine Kinase 47 L HDL Cholesterol 39.70 L 10/05/23 07:51 Glucose POC Glucose (mg/dL) 115 H Creatine Kinase HDL Cholesterol Assessment and Plan Assessment: * Probable acute ischemic stroke manifesting with dysarthria, left hemiparesis and left arm ataxia. Current NIH stroke scale is 5. * Hypertension * Diabetes * Hyperlipidemia * Sciatica, awaiting laminectomy. 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 No dissection, significant stenosis or occlusion in either carotid artery. CTA of the head showed patent intracranial circulation. Fasting a.m. lipid panel cholesterol 136, LDL 70, HDL 39, triglycerides 128. Patient was on Lipitor 40 mg daily. Will increase to 80 mg daily. Hemoglobin A1c Agree with checking B12, folate. Patient takes high-dose B6 100 mg daily. We will check B6 level as well. Permissive hypertension for next 24-48 hours Patient has been taking aspirin 325 mg daily. It was held for 2 days for upcoming lumbar surgery. We will resume aspirin 325 mg daily. For acute str amie, we will place patient on dual antiplatelet medication. Plavix was considered, but has interaction with Prandin. Instead we will try Brilinta loading dose 180 mg x 1, followed by 90 mg twice daily for 30 days. Decrease aspirin to 81 mg daily. Neuro checks every 2 hours. Telemetry monitoring rule out any arrhythmia PT, OT, speech therapy DVT prophylaxis: Heparin 5000 units subcu every 8 hours Hold off on lumbar surgery for at least 4 weeks. Neurology will continue to follow. Thank you for the consult.
[2023-10-05] MEDS: TICAGRELOR 90 MG TAB PO ONE (20:20)
[2023-10-05] MEDS ORDERED: PRAVASTATIN SODIUM 40 MG TAB PO SCH (21:00)
[2023-10-05] MEDS ORDERED: INSULIN DETEMIR (LEVEMIR) 100 UNIT/ML SYR SQ SCH (21:00)
[2023-10-05] MEDS: INSULIN DETEMIR (LEVEMIR) 100 UNIT/ML SYR SQ SCH (21:29)
[2023-10-05] MEDS: HEPARIN SODIUM,PORCINE 5,000 UNIT/ML 1 ML VIAL SQ SCH (21:29)
[2023-10-05] MEDS: allopurinoL 300 MG TAB PO SCH (21:29)
[2023-10-06 06:38] LABS: Glucose,Whole Blood 128 mg/dL (70-110)
[2023-10-06] MEDS: LORazepam 0.5 MG TAB PO STA (08:15)
[2023-10-06] MEDS: ASPIRIN 81 MG PO SCH (08:16)
[2023-10-06] MEDS: PYRIDOXINE 50 MG TAB PO SCH (08:17)
[2023-10-06] MEDS: TICAGRELOR 90 MG TAB PO SCH (08:29)
--- NOTE | 2023-10-06 10:33 | MR ---
EXAMINATION TYPE: MR brain wo con DATE OF EXAM: 10/06/2023 COMPARISON: NONE HISTORY: Slurred speech, facial droop. TECHNIQUE: T1-weighted sagittal, T2, FLAIR, and diffusion axial, and T2 coronal coronal views of the brain are submitted. FINDINGS: There is acute ischemia within the right basal ganglia with extension into the deep white matter of t he right parietal lobe measuring approximately 1 cm, and in the posterior left parietal white matter measuring approximately 3 mm. Results were called to patient's nurse 10:26 AM 10/06/2003. No significant mass effect. There are additional areas of abnormal drooping on signal in the white ma tter most remote white matter ischemia. There is some mild degenerative change. Craniocervical junction maintained. Sella turcica has a normal appearance. Orbits are symmetric. There is a nasal septal deviation and changes of chronic sinusitis. IMPRESSION: 1. There are small areas of acute stroke involving the right basal ganglia\right parietal deep white matter and left posterior parietal white matter. No mass effect or midline shift. 2. Degenerative changes with evidence of remote microvascular ischemia.
[2023-10-06 11:37] LABS: Glucose,Whole Blood 196 mg/dL (70-110)
[2023-10-06 12:57] LABS: Basophils # (A) 0.1 k/uL (0-0.2); Basophils % (A) 1 %; Eosinophils # (A) 0.4 k/uL (0-0.7); Eosinophils % (A) 5 %; HCT 46.3 % (39.0-53.0); HGB 15.1 gm/dL (13.0-17.5); Lymphocytes % (A) 23 %; MCH 32.1 pg (25.0-35.0); MCHC 32.7 g/dL (31.0-37.0); MCV 98.1 fL (80.0-100.0); Mean Platelet Volume 7.7; Monocytes # (A) 0.6 k/uL (0-1.0); Monocytes % (A) 7 %; Neutrophils # (A) 5.2 k/uL (1.3-7.7); Neutrophils % (A) 61 %; Platelet Count 304 k/uL (150-450); RBC 4.72 m/uL (4.30-5.90); RDW 13.7 % (11.5-15.5); WBC 8.5 k/uL (3.8-10.6)
--- NOTE | 2023-10-06 13:13 | P.PN ---
Subjective Progress Note Date: 10/06/23 patient is 68-year-old gentleman past medical history significant for hypertension, hyperlipidemia, diabetes mellitus, chronic back pain who presented to the ER for facial droop and slurred speech. Patient apparently was all right yesterday around 6 PM according to his when he went to sleep after taking his medications. Patient woke up at 8 PM and noted that the patient had slurred speech, she also reported that it was left-sided facial droop. also noticed that the left side was weaker and while using his walker he could noticed that his left arm and leg were weak. There was no complaint of lightheaded and dizziness. There is no complaint of fall. There was no complaint of fecal incontinence. There was no complaint of fever or chills. Patient history of chronic back pain is being followed up outpatient by orthopedic spine and is planning laminectomy in the future. Because of the slurred speech and left-sided facial droop patient was brought to the ER Initial lab work done in the ER showed WBC 6.7, hemoglobin 13.7, platelet count 224, sodium 137, potassium 4.1, BUN 19, creatinine 0.79, glucose 128, AST 30, ALT 20, CK 47, troponin 0.012 triglycerides 128, cholesterol 136, LDL 70 EKG done in the ER showed heart rate of 74, no ST segment elevation or depression seen, no T-wave inversions seen. 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 Patient admitted to internal medicine service 10/05. Patient seen and examined. States he feels better. Slurred speech has improved. MRI brain done showed small areas of acute stroke involving the right basal ganglia/right parietal deep white matter and left posterior parietal white matter. REVIEW OF SYSTEMS: CONSTITUTIONAL: No fever, no malaise,. CARDIOVASCULAR: No chest pain, no palpitations, no syncope. PULMONARY: No shortness of breath, no cough, GASTROINTESTINAL: No diarrhea, no nausea, no vomiting, no abdominal pain. NEUROLOGICAL: No headaches, no weakness, PHYSICAL EXAMINATION: GENERAL: The patient is alert and oriented x3, not in any acute distress. Well developed, well nourished. HEENT: Pupils are round and equally reacting to light. EOMI. No scleral icterus. No conjunctival pallor. Normocephalic, atraumatic. No pharyngeal erythema. No thyromegaly. CARDIOVASCULAR: S1 and S2 present. No murmurs, rubs, or gallops. PULMONARY: Chest is clear to auscultation, no wheezing or crackles. ABDOMEN: Soft, nontender, nondistended, normoactive bowel sounds. No palpable organomegaly. MUSCULOSKELETAL: No joint swelling or deformity. EXTREMITIES: No cyanosis, clubbing, or pedal edema. NEUROLOGICAL: Gross neurological examination did not reveal any focal deficits. SKIN: No rashes. Assessment and plan Acute CVA Hypertension Hyper lipidemia Diabetes mellitus Monitor vital signs Monitor CBC Monitor CMP Continue telemetry monitoring Continue neurochecks Allow permissive hypertension for next 24 to 48 hours, treat for blood pressure more than 190/80 Continue aspirin, Lipitor, added Brilinta MRI brain done showed small areas of acute stroke involving the right basal ganglia/right parietal deep white matter and left posterior parietal white m atter. ordered 2D echo Monitor blood sugar levels, start sliding scale insulin Neurology following, recommend dual antiplatelet therapy PT OT following Labs and medication were reviewed.. Continue same treatment. Continue with symptomatic treatment. Resume home medication. Monitor labs and vitals. DVT and GI prophylaxis. Further recommendations as per clinical course of the patient Dictation was produced using [employer] dictation software. please excuse any grammatical, word or spelling errors. Objective - Vital Signs Vital signs: Vital Signs Temp 97.7 F 10/06/23 11:39 Pulse 81 10/06/23 11:39 Resp 17 10/06/23 11:39 BP 146/87 10/06/23 11:39 Pulse Ox 96 10/06/23 11:39 FiO2 Intake & Output 10/05/23 10/06/23 10/06/23 18:59 06:59 18:59 Intake Total 118 Output Total 1700 Balance -1700 118 Weight 90.718 kg Intake: Oral 118 Output: Urine 1700 Other: Voiding Method Toilet Toilet Urinal Urinal # Voids 1 - Labs CBC & Chem 7: 10/06/23 12:19 10/04/23 22:05 Labs: Abnormal Lab Results - Last 24 Hours (Table) 10/06/23 10/06/23 Range/Units 06:37 11:35 POC Glucose (mg/dL) 128 H 196 H (70-110) mg/dL
[2023-10-06 16:23] LABS: Glucose,Whole Blood 217 mg/dL (70-110)
--- NOTE | 2023-10-06 16:44 | P.PN ---
Subjective Progress Note Date: 10/06/23 Patient was seen for a follow-up. Patient is laying comfortably in the bed. Offers no complaints. Patient's family members were present. Patient states he is symptoms are slightly better. Objective - Vital Signs Vital signs: Vital Signs Temp 97.8 F 10/06/23 16:00 Pulse 74 10/06/23 16:00 Resp 17 10/06/23 16:00 BP 158/72 10/06/23 16:00 Pulse Ox 96 10/06/23 16:00 FiO2 Intake & Output 10/05/23 10/06/23 10/06/23 18:59 06:59 18:59 Intake Total 598 Output Total 1700 Balance -1700 598 Weight 90.718 kg Intake: Oral 598 Output: Urine 1700 Other: Voiding Method Toilet Toilet Urinal Urinal # Voids 1 - Exam Mental status is normal. Speech is mildly dysarthric. Cranial nerves significant for decreased left nasolabial fold. Visual pulido are full. Extraocular muscles are intact. On muscle strength testing, there is mild left pronator drift about 10 degree. Patient has ataxia for [id number] testing of left upper extremity. No ataxia of the lower extremity. No limb drift in the lower limbs. Sensory to touch is equal with no neglect. - Labs CBC & Chem 7: 10/07/23 09:09 10/07/23 09:09 Labs: Abnormal Lab Results - Last 24 Hours (Table) 10/06/23 10/06/23 10/06/23 Range/Units 06:37 11:35 16:16 POC Glucose (mg/dL) 128 H 196 H 217 H (70-110) mg/dL Assessment and Plan Assessment: * Acute ischemic stroke manifesting with dysarthria, left hemiparesis and left arm ataxia. Current NIH stroke scale is 4. * Hypertension * Diabetes * Hyperlipidemia * Sciatica, awaiting laminectomy. Plan: MRI of the brain revealed two small areas of acute stroke involving the right basal ganglia/right parietal deep white matter and left posterior parietal white matter. No mass effect or midline shift. Degenerative changes with evidence of remote microvascular ischemia. I personally reviewed MRI agree with the findings. 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 No dissection, significant stenosis or occlusion in either carotid artery. CTA of the head showed patent intracranial circulation. Patient has bilateral ischemic stroke. Suggest cardiology consultation for possible DOUG to rule out any embolic source. Fasting a.m. lipid panel cholesterol 136, LDL 70, HDL 39, triglycerides 128. Patient was on Lipitor 40 mg daily. Will increase to 80 mg daily. Hemoglobin A1c 7.0, diabetes well-controlled B12 1648, RBC folate 479. Patient takes high-dose B6 100 mg daily. Await vitamin B6 level Permissive hypertension for next 24-48 hours Patient has been taking aspirin 325 mg daily. It was held for 2 days for upcoming lumbar surgery. We will resume aspirin 325 mg daily. For acute stroke, we will place patient on dual antiplatelet medication. Plavix was considered, but has interaction with Prandin. Instead we will try Brilinta loading dose 180 mg x 1, followed by 90 mg twice daily for 30 days. Decrease aspirin to 81 mg daily. Neuro checks every 2 hours. Telemetry monitoring rule out any arrhythmia PT, OT, speech therapy DVT prophylaxis: Heparin 5000 units subcu every 8 hours Hold off on lumbar surgery for at least 4 weeks. Discussed with patient's family and primary physician in detail. Consider consultation with physical medicine and rehabilitation for possible inpatient rehab.
[2023-10-06] MEDS: FLUTICASONE 50MCG/SPRAY NASAL 16GM EA NOSTRIL SCH (19:40)
[2023-10-06] MEDS: LORATADINE 10 MG TAB PO SCH (19:41)
[2023-10-06 20:27] LABS: Glucose,Whole Blood 207 mg/dL (70-110)
[2023-10-07 06:12] LABS: Glucose,Whole Blood 126 mg/dL (70-110)
[2023-10-07] MEDS: KETOROLAC 15 MG/ML 1 ML VIAL IVP PRN (08:54)
[2023-10-07] MEDS: KETOROLAC 15 MG/ML 1 ML VIAL ONE (09:29)
[2023-10-07 09:59] LABS: Basophils # (A) 0.1 k/uL (0-0.2); Basophils % (A) 1 %; Eosinophils # (A) 0.6 k/uL (0-0.7); Eosinophils % (A) 5 %; HCT 44.4 % (39.0-53.0); HGB 14.8 gm/dL (13.0-17.5); Lymphocytes # (A) 1.9 k/uL (1.0-4.8); Lymphocytes % (A) 19 %; MCHC 33.3 g/dL (31.0-37.0); Monocytes # (A) 0.9 k/uL (0-1.0); Monocytes % (A) 9 %; Neutrophils # (A) 6.5 k/uL (1.3-7.7); Neutrophils % (A) 64 %; Platelet Count 274 k/uL (150-450); RBC 4.63 m/uL (4.30-5.90); RDW 13.9 % (11.5-15.5); WBC 10.2 k/uL (3.8-10.6)
[2023-10-07 10:05] LABS: ALT 19 U/L (4-49); AST 29 U/L (17-59); African American GFR (CKD) >90 (>60 ml/min/1.73 sqM); Albumin 4.3 g/dL (3.5-5.0); Alkaline Phosphatase 72 U/L (38-126); Anion Gap 6 mmol/L; Blood Urea Nitrogen 17 mg/dL (9-20); Carbon Dioxide 26 mmol/L (22-30); Chloride 108 mmol/L (98-107); Glucose 146 mg/dL (74-99); Non-African American GFR(CKD) >90 (>60 ml/min/1.73 sqM); Potassium 3.9 mmol/L (3.5-5.1); Sodium 140 mmol/L (137-145); Total Bilirubin 0.5 mg/dL (0.2-1.3); Total Protein 6.9 g/dL (6.3-8.2)
[2023-10-07 11:34] LABS: Glucose,Whole Blood 134 mg/dL (70-110)
--- NOTE | 2023-10-07 11:47 | CA ---
Transthoracic Echo Report Name: Javon Jackman Age: 68 Gender: M : 1955 Exam Date: 10/06/2023 10:02 Exam Location: [place] [facility] Ht (in): 66 Wt (lb): 200 Ordering Physician: Lucas Martin MD Attending/Referring Phys: Special Client Bus Driver Diamond Erazo RDCS Procedure CPT: Indications: Slurred speech, CVA Cardiac Hx: Technical Quality: Technically difficult study Contrast 1: Definity Total Dose (mL): 2 Contrast 2: Total Dose (mL): MEASUREMENTS (Male / Female) Normal Values 2D ECHO LV Diastolic Diameter PLAX 4.4 cm 4.2 - 5.9 / 3.9 - 5.3 cm IVS Diastolic Thickness 0.8 cm 0.6 - 1.0 / 0.6 - 0.9 cm LVPW Diastolic Thickness 1.1 cm 0.6 - 1.0 / 0.6 - 0.9 cm LV Relative Wall Thickness 0.4 RV Internal Dim ED PLAX 2.7 cm LVOT Diameter 2.1 cm Aortic Root Diameter 3.4 cm LV Diastolic Volume MOD BP 78.5 cm??? 67 - 155 / 56 - 104 cm??? LV Systolic Volume MOD BP 26.9 cm??? 22 - 58 / 19 - 49 cm??? LV Ejection Fraction MOD BP 65.8 % >= 55 % LV Cardiac Index MOD BP 2053.1 cm???/min???m??? LV Diastolic Volume MOD 4C 83.7 cm??? LV Systolic Volume MOD 4C 26.1 cm??? LV Ejection Fraction MOD 4C 68.8 % LV Cardiac Index MOD 4C 2291.4 cm???/min???m??? LV Diastolic Length 4C 7.9 cm LV Systolic Length 4C 6.7 cm LV Diastolic Volume MOD 2C 71.9 cm??? LV Systolic Volume MOD 2C 27.4 cm??? LV Ejection Fraction MOD 2C 61.9 % LV Cardiac Index MOD 2C 1770.1 cm???/min???m??? LV Diastolic Length 2C 7.7 cm LV Systolic Length 2C 6.7 cm Ascending Aorta Diameter 3.6 cm DOPPLER AV Peak Velocity 140.3 cm/s AV Peak Gradient 7.9 mmHg AV Mean Velocity 100.8 cm/s AV Mean Gradient 4.5 mmHg AV Velocity Time Integral 25.6 cm LVOT Peak Velocity 124.5 cm/s LVOT Peak Gradient 6.2 mmHg LVOT Velocity Time Integral 21.9 cm LVOT Stroke Volume 78.2 cm??? LVOT Stroke Volume Index 39.1 ml/m??? LVOT Cardiac Index 3108.4 cm???/min???m??? AV Area Cont Eq vti 3.1 cm??? AV Area Cont Eq pk 3.2 cm??? Mitral E Point Velocity 59.7 cm/s Mitral A Point Velocity 78.3 cm/s Mitral E to A Ratio 0.8 MV Deceleration Time 198.7 ms MV E' Velocity 6.9 cm/s Mitral E to MV E' Ratio 8.7 PV Peak Velocity 92.2 cm/s PV Peak Gradient 3.4 mmHg FINDINGS Left Ventricle Left ventricular ejection fraction is estimated at 60 %. Left ventricular cavity size normal. Left ventricular wall thickness normal. No obvious regional wall motion abnormalities. Right Ventricle Normal right ventricular size and function. Unable to estimate the right ventricular systolic pressure. Right Atrium Normal right atrial size. Left Atrium Normal left atrial size. Mitral Valve Structurally normal mitral valve. No mitral stenosis, regurgitation or prolapse. Aortic Valve Aortic valve not well visualized. No aortic valve stenosis or regurgitation. Tricuspid Valve Tricuspid valve not well visualized. No tricuspid stenosis, regurgitation or prolapse. Pulmonic Valve Pulmonic valve not well visualized. No pulmonic stenosis. No pulmonic regurgitation. Pericardium No pericardial effusion. Aorta Normal size aortic root and proximal ascending aorta. CONCLUSIONS Technically difficult study. LV size and systolic function is normal. No significant abnormality on the Doppler exam. No pericardial effusion but probably a fat pad. Previewed by: Dr. Windy Greene MD (Electronically Signed) Final Date: 07 Oct 2023 11:45
--- NOTE | 2023-10-07 13:23 | P.PN ---
Subjective Progress Note Date: 10/07/23 patient is 68-year-old gentleman past medical history significant for hypertension, hyperlipidemia, diabetes mellitus, chronic back pain who presented to the ER for facial droop and slurred speech. Patient apparently was all right yesterday around 6 PM according to his when he went to sleep after taking his medications. Patient woke up at 8 PM and noted that the patient had slurred speech, she also reported that it was left-sided facial droop. also noticed that the left side was weaker and while using his walker he could noticed that his left arm and leg were weak. There was no complaint of lightheaded and dizziness. There is no complaint of fall. There was no complaint of fecal incontinence. There was no complaint of fever or chills. Patient history of chronic back pain is being followed up outpatient by orthopedic spine and is planning laminectomy in the future. Because of the slurred speech and left-sided facial droop patient was brought to the ER Initial lab work done in the ER showed WBC 6.7, hemoglobin 13.7, platelet count 224, sodium 137, potassium 4.1, BUN 19, creatinine 0.79, glucose 128, AST 30, ALT 20, CK 47, troponin 0.012 triglycerides 128, cholesterol 136, LDL 70 EKG done in the ER showed heart rate of 74, no ST segment elevation or depression seen, no T-wave inversions seen. 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 Patient admitted to internal medicine service 10/05. Patient seen and examined. States he feels better. Slurred speech has improved. MRI brain done showed small areas of acute stroke involving the right basal ganglia/right parietal deep white matter and left posterior parietal white matter. 10/06. Patient seen and examined. Blood work done today showed WBC 10.2, hemoglobin 14.8, platelet count 274, sodium 140, potassium 3.9, BUN 17, creatinine 0.81. DOUG being scheduled for patient REVIEW OF SYSTEMS: CONSTITUTIONAL: No fever, no malaise,. CARDIOVASCULAR: No chest pain, no palpitations, no syncope. PULMONARY: No shortness of breath, no cough, GASTROINTESTINAL: No diarrhea, no nausea, no vomiting, no abdominal pain. NEUROLOGICAL: No headaches, no weakness, PHYSICAL EXAMINATION: GENERAL: The patient is alert and oriented x3, not in any acute distress. Well developed, well nourished. HEENT: Pupils are round and equally reacting to light. EOMI. No scleral icterus. No conjunctival pallor. Normocephalic, atraumatic. No pharyngeal erythema. No thyromegaly. CARDIOVASCULAR: S1 and S2 present. No murmurs, rubs, or gallops. PULMONARY: Chest is clear to auscultation, no wheezing or crackles. ABDOMEN: Soft, nontender, nondistended, normoactive bowel sounds. No palpable organomegaly. MUSCULOSKELETAL: No joint swelling or deformity. EXTREMITIES: No cyanosis, clubbing, or pedal edema. NEUROLOGICAL: Gross neurological examination did not reveal any focal deficits. SKIN: No rashes. Assessment and plan Acute CVA Hypertension Hyper lipidemia Diabetes mellitus Monitor vital signs Monitor CBC Monitor CMP Continue telemetry monitoring Continue neurochecks Continue aspirin, Lipitor, Brilinta MRI brain done showed small areas of acute stroke involving the right basal ganglia/right parietal deep white matter and left posterior parietal white matter. ordered 2D echo Monitor blood sugar levels, start sliding scale insulin Neurology following, recommend dual antiplatelet therapy Cardiology consulted for DOUG PT OT following Labs and medication were reviewed.. Continue same treatment. Continue with symptomatic treatment. Resume home medication. Monitor labs and vitals. DVT and GI prophylaxis. Further recommendations as per clinical course of the patient Dictation was produced using [employer] dictation software. please excuse any grammatical, word or spelling errors. Objective - Vital Signs Vital signs: Vital Signs Temp 97.7 F 10/07/23 07:51 Pulse 87 10/07/23 07:51 Resp 17 10/07/23 07:51 BP 159/76 10/07/23 07:51 Pulse Ox 95 10/07/23 07:51 FiO2 Intake & Output 10/06/23 10/07/23 10/07/23 18:59 06:59 18:59 Intake Total 598 Output Total 300 Balance 598 -300 Intake: Oral 598 Output: Urine 300 Other: Voiding Method Toilet Toilet Urinal Urinal # Voids 1 2 - Labs CBC & Chem 7: 10/07/23 09:09 10/07/23 09:09 Labs: Abnormal Lab Results - Last 24 Hours (Table) 10/06/23 10/06/23 10/06/23 Range/Units 11:35 12:19 12:19 Chloride (98-107) mmol/L Glucose (74-99) mg/dL POC Glucose (mg/dL) 196 H (70-110) mg/dL Hemoglobin A1c 7.0 H (<=6.0) % Vitamin B12 1648.0 H (200.0-944.0) pg/mL 10/06/23 10/06/23 10/07/23 Range/Units 16:16 20:25 06:11 Chloride (98-107) mmol/L Glucose (74-99) mg/dL POC Glucose (mg/dL) 217 H 207 H 126 H (70-110) mg/dL Hemoglobin A1c (<=6.0) % Vitamin B12 (200.0-944.0) pg/mL 10/07/23 Range/Units 09:09 Chloride 108 H (98-107) mmol/L Glucose 146 H (74-99) mg/dL POC Glucose (mg/dL) (70-110) mg/dL Hemoglobin A1c (<=6.0) % Vitamin B12 (200.0-944.0) pg/mL
[2023-10-07 16:19] LABS: Glucose,Whole Blood 264 mg/dL (70-110)
[2023-10-07 19:26] LABS: Glucose,Whole Blood 256 mg/dL (70-110)
[2023-10-08 02:01] LABS: Glucose,Whole Blood 163 mg/dL (70-110)
[2023-10-08 06:17] LABS: Glucose,Whole Blood 151 mg/dL (70-110)
[2023-10-08 11:42] LABS: Glucose,Whole Blood 219 mg/dL (70-110)
--- NOTE | 2023-10-08 12:01 | P.CRDCN ---
History of Present Illness Consult date: 10/08/23 Reason for Consult (text): Acute CVA History of present illness: The patient is a 68-year-old male who is admitted to the hospital after experie ncing strokelike symptoms. The patient had augmented speech along with left- sided weakness. He states just prior to the symptoms, the patient was being evaluated by neurosurgery for orthopedic spine surgery. He has been ambulating with a walker and is less mobile than his baseline. Surgery was pending for this coming Tuesday. DIAGNOSTICS: EKG shows sinus rhythm with normal MA narrow QRS CT of the brain shows no acute intracranial process CTA of the head and neck shows no dissection or significant stenosis of carotid/vertebral arteries Chest x-ray shows no evidence of acute cardiopulmonary disease Echocardiogram shows preserved LV function with mild LVH. No significant valvular abnormalities. No bubble study was performed MRI of the brain shows small areas of acute stroke involving the right basal ganglia/right parietal deep white matter and left posterior parietal white matter Labs: WBC 10.2, hemoglobin 14.8, hematocrit 44.4, platelet 274, sodium 140, potassium 3.9, BUN 17, creatinine 0.81, AST 29, ALT 19, troponin less than 0.012, triglycerides 128, LDL 70, HDL 39, hemoglobin A1c 7.0 REVIEW OF SYSTEMS: No fever or chills. No cough or expectoration. No diaphoresis. Patient denies headache, dizziness, blurred vision, double vision. Patient denies any stomach discomfort. No nausea, vomiting. No hematochezia. No hematemesis. Denies any black stools or blood in his stools. Denies dysuria or hematuria. Mild weakness in his left upper and lower extremity. No chest pain. No difficulty breathing PHYSICAL EXAMINATION: This is a 68-year-old male in no apparent distress at the time of my examination. HEENT: Head is atraumatic, normocephalic. Pupils are equal, round. Sclerae anicteric. Conjunctivae are clear. Mucous membranes of the mouth are moist. Neck is supple. There is no jugular venous distention. No carotid bruit is heard. CHEST EXAMINATION: Lungs are clear to auscultation. No chest wall tenderness is noted on palpation or with deep breathing. HEART EXAMINATION: Heart regular rate and rhythm. S1, S2 heard. No murmurs, gallops or rub. ABDOMEN: Soft, nontender. Bowel sounds are heard. No organomegaly noted. EXTREMITIES: 2+ peripheral pulses with no evidence of peripheral edema and no calf tenderness noted. NEUROLOGIC EXAMINATION: Patient is awake, alert and oriented x3. FINAL ASSESSMENT AND PLAN: Acute CVA History hypertension History of dyslipidemia History of diabetes mellitus, greater than 20 years Obesity, BMI 32 PLAN: Lower extremity venous Dopplers Check D-dimer Increase statin N.p.o. after midnight for DOUG on Tuesday I am dictating on behalf of Dr Arnol Pimentel's history/physical and assessment/plan. Past Medical History Past Medical History: Diabetes Mellitus, Hyperlipidemia, Hypertension Additional Past Medical History / Comment(s): RENAL CALCULUS History of Any Multi-Drug Resistant Organisms: None Reported Past Surgical History: Hernia Repair Additional Past Surgical History / Comment(s): LITHOTRIPSY Past Anesthesia/Blood Transfusion Reactions: Postoperative Nausea & Vomiting (PONV) Additional Past Anesthesia/Blood Transfusion Reaction / Comment(s): STATES SEVERE Past Psychological History: No Psychological Hx Reported Smoking Status: Never smoker Past Alcohol Use History: Rare Past Drug Use History: None Reported Medications and Allergies Home Medications Medication Instructions Recorded Confirmed Type Magnesium Oxide [Mag-Ox] 400 mg PO QID 09/05/15 10/05/23 History allopurinoL [Zyloprim] 300 mg PO HS 09/05/15 10/05/23 History Enalapril [Vasotec] 10 mg PO BID-W/MEALS 04/22/16 10/05/23 History Aspirin EC [Ecotrin] 325 mg PO DIRECTED 03/19/18 10/05/23 History Cinnamon Bark [Cinnamon] 500 mg PO BID@1200,2100 03/19/18 10/05/23 History Insulin Degludec [Tresiba 10 unit SQ AC-BID 03/19/18 10/05/23 History Flextouch U-100] Pioglitazone [Actos] 45 mg PO DAILY 03/19/18 10/05/23 History Turmeric Root Extract [Turmeric] 500 mg PO BID-W/MEALS 03/19/18 10/05/23 History cloNIDine HCL [Catapres] 0.1 mg PO HS 03/19/18 10/05/23 History Fenofibrate 54 mg PO DAILY 06/01/22 10/05/23 History Insulin Aspart [NovoLOG] See Protocol SQ ACHS PRN 06/01/22 10/05/23 History Repaglinide [Prandin] 2 mg PO QID 06/01/22 10/05/23 History Atorvastatin [Lipitor] 40 mg PO W/SUPPER 10/05/23 10/05/23 History Cholecalciferol (Vitamin D3) 50 mcg PO DAILY 10/05/23 10/05/23 History [Vitamin D3 (50 Mcg = 2000 Iu)] Gabapentin [Neurontin] 400 mg PO TID 10/05/23 10/05/23 History HYDROcodone/APAP 10-325MG [[place] 1 tab PO Q4HR PRN 10/05/23 10/05/23 History 10-325] Pantoprazole Sodium [Protonix] 40 mg PO DAILY 10/05/23 10/05/23 History Tirzepatide [Mounjaro] 7.5 mg SQ DIRECTED 10/05/23 10/05/23 History hydroCHLOROthiazide [Hydrodiuril] 50 mg PO W/SUPPER 10/05/23 10/05/23 History methocarbamoL [Robaxin-750] 750 mg PO TID 10/05/23 10/05/23 History Cyanocobalamin (Vitamin B-12) 1 tablet PO DAILY 10/07/23 10/07/23 History [Vitamin B-12] Sciatiease 1 tablet PO BID 10/07/23 10/07/23 History Allergies Allergy/AdvReac Type Severity Reaction Status Date / Time sitagliptin [From May] AdvReac abd Verified 10/05/23 08:31 pain/PANCREATITIS Physical Exam Vitals: Vital Signs Temp Pulse Resp BP Pulse Ox 10/08/23 04:00 97.8 F 78 16 131/77 97 10/08/23 00:00 98.1 F 93 18 152/83 97 10/07/23 20:00 97.4 F L 63 16 118/57 97 10/07/23 16:00 98.1 F 72 17 165/83 97 10/07/23 11:58 97.6 F 74 17 170/76 98 Intake and Output 10/07/23 10/08/23 10/08/23 22:59 06:59 14:59 Intake Total 118 540 480 Balance 118 540 480 Intake: Oral 118 540 480 Other: Voiding Method Toilet Toilet Urinal Urinal # Voids 1 1 Results 10/07/23 09:09 10/07/23 09:09 Current Medications Generic Name Dose Route Start Last Admin Trade Name Freq PRN Reason Stop Dose Admin Hydrocodone Bitart/Acetaminophen 1 each 10/05/23 08:58 10/08/23 07:05 Hydrocodone/Apap 10-325mg 1 Each Tab PO 1 each Q4HR PRN Administration pain Allopurinol 300 mg 10/05/23 21:00 10/07/23 20:02 Allopurinol 300 Mg Tab PO 300 mg HS TAMMI Administration Aspirin 81 mg 10/06/23 09:00 10/08/23 09:56 Aspirin 81 Mg PO 81 mg DAILY TAMMI Administration Cholecalciferol 50 mcg 10/05/23 09:00 10/08/23 09:56 Cholecalciferol 25 Mcg (1000 Iu) Tablet PO 50 mcg DAILY TAMMI Administration Dextrose/Water 25 ml 10/05/23 10:27 Dextrose 50% Syringe 50 Ml IVP PER PROTOCOL PRN Hypoglycemia Protocol Dextrose/Water 50 ml 10/05/23 10:27 Dextrose 50% Syringe 50 Ml IVP PER PROTOCOL PRN Hypoglycemia Protocol Famotidine 20 mg 10/05/23 09:00 10/08/23 09:55 Famotidine 20 Mg Tab PO 20 mg BID TAMMI Administration Fenofibrate 54 mg 10/05/23 09:00 10/08/23 09:55 Fenofibrate 54 Mg Tab PO 54 mg QAM TAMMI Administration Fluticasone Propionate 1 spray 10/06/23 18:30 10/08/23 09:58 Fluticasone 50mcg/[place] Nasal 16gm EA NOSTRIL Not Given DAILY TAMMI Gabapentin 300 mg 10/05/23 16:00 10/08/23 09:55 Gabapentin 300 Mg Cap PO 300 mg TID TAMMI Administration Heparin Sodium (Porcine) 5,000 unit 10/05/23 21:00 10/08/23 09:57 Heparin Sodium,Porcine 5,000 Unit/Ml 1 Ml Vial SQ 5,000 unit Q12HR TAMMI Administration Hydrochlorothiazide 50 mg 10/07/23 17:30 10/07/23 17:36 Hydrochlorothiazide 50 Mg Tab PO 50 mg W/SUPPER TAMMI Administration Sodium Chloride 1,000 mls @ 100 mls/hr 10/04/23 23:30 10/08/23 07:09 Saline 0.9% IV Not Given .Q10H TAMMI Insulin Aspart 0 unit 10/05/23 12:30 10/08/23 06:57 Insulin Aspart (Novolog) 100 Unit/Ml Vial SQ 2 unit ACHS TAMMI Administration Protocol Insulin Detemir 10 unit 10/05/23 21:00 10/08/23 06:57 Insulin Detemir (Levemir) 100 Unit/Ml Syr SQ 10 unit BID@0700,2100 TAMMI Administration Ketorolac Tromethamine 15 mg 10/07/23 01:22 10/08/23 09:57 Ketorolac 15 Mg/Ml 1 Ml Vial IVP 10/12/23 01:23 15 mg Q6HR PRN Administration Pain Loratadine 5 mg 10/06/23 18:30 10/08/23 09:56 Loratadine 10 Mg Tab PO 5 mg DAILY TAMMI Administration Magnesium Oxide 400 mg 10/05/23 09:00 10/08/23 09:55 Magnesium Oxide 400 Mg Tab PO 400 mg QID TAMMI Administration Methocarbamol 750 mg 10/05/23 09:00 10/08/23 09:55 Methocarbamol 750 Mg Tab PO 750 mg TID TAMMI Administration Pantoprazole Sodium 40 mg 10/05/23 07:30 10/08/23 06:57 Pantoprazole 40 Mg Tablet PO 40 mg [id number] Administration Pioglitazone HCl 45 mg 10/05/23 09:00 10/08/23 09:56 Pioglitazone 45 Mg Tab PO 45 mg QAM TAMMI Administration Pyridoxine HCl 100 mg 10/06/23 09:00 10/08/23 09:55 Pyridoxine 50 Mg Tab PO 100 mg DAILY TAMMI Administration Repaglinide 2 mg 10/05/23 12:30 10/08/23 06:57 Repaglinide 1 Mg Tab PO 2 mg QID@0730,1230,1730,2130 TAMMI Administration Ticagrelor 90 mg 10/06/23 09:00 10/08/23 09:55 Ticagrelor 90 Mg Tab PO 90 mg BID TAMMI Administration Intake and Output 10/07/23 10/08/23 10/08/23 22:59 06:59 14:59 Intake Total 118 540 480 Balance 118 540 480 Intake: Oral 118 540 480 Other: Voiding Method Toilet Toilet Urinal Urinal # Voids 1 1 10/07/23 09:09 10/07/23 09:09
--- NOTE | 2023-10-08 12:34 | P.PN ---
Subjective Progress Note Date: 10/07/23 Patient was seen for a follow-up. Patient is sitting comfortably in the recliner. Offers no complaints. Patient's was also present. Patient states that he is feeling much better. Objective - Vital Signs Vital signs: Vital Signs Temp 98.1 F 10/07/23 16:00 Pulse 72 10/07/23 16:00 Resp 17 10/07/23 16:00 BP 165/83 10/07/23 16:00 Pulse Ox 97 10/07/23 16:00 FiO2 Intake & Output 10/06/23 10/07/23 10/07/23 18:59 06:59 18:59 Intake Total 598 118 Output Total 300 Balance 598 -300 118 Intake: Oral 598 118 Output: Urine 300 Other: Voiding Method Toilet Toilet Toilet Urinal Urinal Urinal # Voids 1 2 1 - Exam Mental status is normal. Speech is mildly dysarthric. Cranial nerves significant for decreased left nasolabial fold. Visual pulido are full. Extraocular muscles are intact. On muscle strength testing, there is mild left pronator drift about 10 degree. Patient has ataxia for [id number] testing of left upper extremity. No ataxia of the lower extremity. No limb drift in the lower limbs. Sensory to touch is equal with no neglect. - Labs CBC & Chem 7: 10/07/23 09:09 10/07/23 09:09 Labs: Abnormal Lab Results - Last 24 Hours (Table) 10/06/23 10/06/23 10/06/23 Range/Units 12:19 12:19 20:25 Chloride (98-107) mmol/L Glucose (74-99) mg/dL POC Glucose (mg/dL) 207 H (70-110) mg/dL Hemoglobin A1c 7.0 H (<=6.0) % Vitamin B12 1648.0 H (200.0-944.0) pg/mL 10/07/23 10/07/23 10/07/23 Range/Units 06:11 09:09 11:33 Chloride 108 H (98-107) mmol/L Glucose 146 H (74-99) mg/dL POC Glucose (mg/dL) 126 H 134 H (70-110) mg/dL Hemoglobin A1c (<=6.0) % Vitamin B12 (200.0-944.0) pg/mL 10/07/23 Range/Units 16:17 Chloride (98-107) mmol/L Glucose (74-99) mg/dL POC Glucose (mg/dL) 264 H (70-110) mg/dL Hemoglobin A1c (<=6.0) % Vitamin B12 (200.0-944.0) pg/mL Assessment and Plan Assessment: * Acute ischemic stroke manifesting with dysarthria, left hemiparesis and left arm ataxia. Current NIH stroke scale is 4. * Hypertension * Diabetes * Hyperlipidemia * Sciatica, awaiting laminectomy. Plan: MRI of the brain revealed two small areas of acute stroke involving the right basal ganglia/right parietal deep white matter and left posterior parietal white matter. No mass effect or midline shift. Degenerative changes with evidence of remote microvascular ischemia. I personally reviewed MRI agree with the findings. 2-D echo revealed technically difficult study. LV size and systolic function are normal. EF is estimated at 60%. No obvious regional wall motion abnormalities. Left and right atrial size are normal. No valvular abn ormalities. 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 No dissection, significant stenosis or occlusion in either carotid artery. CTA of the head showed patent intracranial circulation. Patient has bilateral ischemic stroke. Await cardiology consultation for possible DOUG to rule out any embolic source. Fasting a.m. lipid panel cholesterol 136, LDL 70, HDL 39, triglycerides 128. Patient was on Lipitor 40 mg daily. Will increase to 80 mg daily. Hemoglobin A1c 7.0, diabetes well-controlled B12 1648, RBC folate 479. Patient's mentions that he was not taking vitamins B6, but was taking vitamin B12 1000 mcg daily. Optimize control of blood pressure. Patient has been taking aspirin 325 mg daily. It was held for 2 days for upcoming lumbar surgery. We will resume aspirin 325 mg daily. For acute s troke, we will place patient on dual antiplatelet medication. Plavix was considered, but has interaction with Prandin. Instead we will try Brilinta loading dose 180 mg x 1, followed by 90 mg twice daily for 30 days. Decrease aspirin to 81 mg daily. Telemetry monitoring rule out any arrhythmia PT, OT, speech therapy DVT prophylaxis: Heparin 5000 units subcu every 8 hours Hold off on lumbar surgery for at least 4 weeks. Discussed with patient's family and primary physician in detail. Consider consultation with physical medicine and rehabilitation for possible inpatient rehab.
--- NOTE | 2023-10-08 12:40 | US ---
EXAMINATION TYPE: US venous doppler duplex LE DATE OF EXAM: 10/08/2023 11:05 AM COMPARISON: NONE CLINICAL INDICATION: Male, 68 years old with history of rule out DVT;rule out DVT SIDE PERFORMED: Bilateral TECHNIQUE: The lower extremity deep venous system is examined utilizing real time linear array sonog evon with graded compression, doppler sonography and color-flow sonography. VESSELS IMAGED: Common Femoral Vein Deep Femoral Vein Greater Saphenous Vein * Femoral Vein Popliteal Vein Proximal Calf Veins (* superficial vessels) The deep venous systems of both lower extremities from the common femoral remains to the proximal frederic f veins are patent and compressible with augmentable flow and with normal waveforms. IMPRESSION: No evidence of bilateral lower extremity DVT from the common femoral veins to the proximal calf veins
--- NOTE | 2023-10-08 12:41 | P.PN ---
Subjective Progress Note Date: 10/08/23 patient is 68-year-old gentleman past medical history significant for hypertension, hyperlipidemia, diabetes mellitus, chronic back pain who presented to the ER for facial droop and slurred speech. Patient apparently was all right yesterday around 6 PM according to his when he went to sleep after taking his medications. Patient woke up at 8 PM and noted that the patient had slurred speech, she also reported that it was left-sided facial droop. also noticed that the left side was weaker and while using his walker he could noticed that his left arm and leg were weak. There was no complaint of lightheaded and dizziness. There is no complaint of fall. There was no complaint of fecal incontinence. There was no complaint of fever or chills. Patient history of chronic back pain is being followed up outpatient by orthopedic spine and is planning laminectomy in the future. Because of the slurred speech and left-sided facial droop patient was brought to the ER Initial lab work done in the ER showed WBC 6.7, hemoglobin 13.7, platelet count 224, sodium 137, potassium 4.1, BUN 19, creatinine 0.79, glucose 128, AST 30, ALT 20, CK 47, troponin 0.012 triglycerides 128, cholesterol 136, LDL 70 EKG done in the ER showed heart rate of 74, no ST segment elevation or depression seen, no T-wave inversions seen. 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 Patient admitted to internal medicine service 10/05. Patient seen and examined. States he feels better. Slurred speech has improved. MRI brain done showed small areas of acute stroke involving the right basal ganglia/right parietal deep white matter and left posterior parietal white matter. 10/06. Patient seen and examined. Blood work done today showed WBC 10.2, hemoglobin 14.8, platelet count 274, sodium 140, potassium 3.9, BUN 17, creatinine 0.81. DOUG being scheduled for patient 6/1. Patient seen examined. Cardiology planning DOUG on Tuesday. No acute issue overnight REVIEW OF SYSTEMS: CONSTITUTIONAL: No fever, no malaise,. CARDIOVASCULAR: No chest pain, no palpitations, no syncope. PULMONARY: No shortness of breath, no cough, GASTROINTESTINAL: No diarrhea, no nausea, no vomiting, no abdominal pain. NEUROLOGICAL: No headaches, no weakness, PHYSICAL EXAMINATION: GENERAL: The patient is alert and oriented x3, not in any acute distress. Well developed, well nourished. HEENT: Pupils are round and equally reacting to light. EOMI. No scleral icterus. No conjunctival pallor. Normocephalic, atraumatic. No pharyngeal erythema. No thyromegaly. CARDIOVASCULAR: S1 and S2 present. No murmurs, rubs, or gallops. PULMONARY: Chest is clear to auscultation, no wheezing or crackles. ABDOMEN: Soft, nontender, nondistended, normoactive bowel sounds. No palpable organomegaly. MUSCULOSKELETAL: No joint swelling or deformity. EXTREMITIES: No cyanosis, clubbing, or pedal edema. NEUROLOGICAL: Gross neurological examination did not reveal any focal deficits. SKIN: No rashes. Assessment and plan Acute CVA Hypertension Hyper lipidemia Diabetes mellitus Monitor vital signs Monitor CBC Monitor CMP Continue telemetry monitoring Continue neurochecks Continue aspirin, Lipitor, Brilinta MRI brain done showed small areas of acute stroke involving the right basal ganglia/right parietal deep white matter and left posterior parietal white matter. Monitor blood sugar levels, start sliding scale insulin Neurology following, recommend dual antiplatelet therapy Cardiology planning DOUG on Tuesday PT OT following Labs and medication were reviewed.. Continue same treatment. Continue with symptomatic treatment. Resume home medication. Monitor labs and vitals. DVT and GI prophylaxis. Further recommendations as per clinical course of the patient Dictation was produced using [employer] dictation software. please excuse any grammatical, word or spelling errors. Objective - Vital Signs Vital signs: Vital Signs Temp 97.5 F L 10/08/23 08:00 Pulse 88 10/08/23 08:00 Resp 16 10/08/23 08:00 BP 160/88 10/08/23 08:00 Pulse Ox 94 L 10/08/23 08:00 FiO2 Intake & Output 10/07/23 10/08/23 10/08/23 18:59 06:59 18:59 Intake Total 236 540 480 Balance 236 540 480 Intake: Oral 236 540 480 Other: Voiding Method Toilet Toilet Urinal Urinal # Voids 1 1 - Labs CBC & Chem 7: 10/07/23 09:09 10/07/23 09:09 Labs: Abnormal Lab Results - Last 24 Hours (Table) 10/07/23 10/07/23 10/08/23 Range/Units 16:17 19:24 01:56 D-Dimer (<0.60) mg/L FEU POC Glucose (mg/dL) 264 H 256 H 163 H (70-110) mg/dL 10/08/23 10/08/23 10/08/23 Range/Units 06:16 10:34 11:41 D-Dimer 0.66 H (<0.60) mg/L FEU POC Glucose (mg/dL) 151 H 219 H (70-110) mg/dL
[2023-10-08] MEDS: ATORVASTATIN 80 MG TAB PO SCH (12:49)
[2023-10-08 16:32] LABS: Glucose,Whole Blood 131 mg/dL (70-110)
[2023-10-08] MEDS: DOCUSATE 100 MG CAP PO SCH (18:49)
[2023-10-08 20:43] LABS: Glucose,Whole Blood 208 mg/dL (70-110)
[2023-10-09 03:51] LABS: Glucose,Whole Blood 99 mg/dL (70-110)
[2023-10-09 06:34] LABS: Glucose,Whole Blood 124 mg/dL (70-110)
--- NOTE | 2023-10-09 11:20 | P.PN ---
Subjective Progress Note Date: 10/08/23 Patient was seen for a follow-up. Patient is sitting comfortably in the recliner. Offers no complaints. Patient states that he is feeling much better. Objective - Vital Signs Vital signs: Vital Signs Temp 97.5 F L 10/08/23 16:00 Pulse 75 10/08/23 16:00 Resp 16 10/08/23 16:00 BP 156/85 10/08/23 16:00 Pulse Ox 95 10/08/23 16:00 FiO2 Intake & Output 10/07/23 10/08/23 10/08/23 18:59 06:59 18:59 Intake Total 236 540 598 Balance 236 540 598 Intake: Oral 236 540 598 Other: Voiding Method Toilet Toilet Toilet Urinal Urinal Urinal # Voids 1 1 - Exam Mental status is normal. Speech is mildly dysarthric. Cranial nerves significant for decreased left nasolabial fold. Visual pulido are full. Extraocular muscles are intact. On muscle strength testing, there is mild left pronator drift about 10 degree. Patient has ataxia for [id number] testing of left upper extremity. No ataxia of the lower extremity. No limb drift in the lower limbs. Sensory to touch is equal with no neglect. - Labs CBC & Chem 7: 10/07/23 09:09 10/07/23 09:09 Labs: Abnormal Lab Results - Last 24 Hours (Table) 10/07/23 10/08/23 10/08/23 Range/Units 19:24 01:56 06:16 D-Dimer (<0.60) mg/L FEU POC Glucose (mg/dL) 256 H 163 H 151 H (70-110) mg/dL 10/08/23 10/08/23 10/08/23 Range/Units 10:34 11:41 16:30 D-Dimer 0.66 H (<0.60) mg/L FEU POC Glucose (mg/dL) 219 H 131 H (70-110) mg/dL Assessment and Plan Assessment: * Acute ischemic stroke manifesting with dysarthria, left hemiparesis and left arm ataxia. Current NIH stroke scale is 4. * Hypertension * Diabetes * Hyperlipidemia * Sciatica, awaiting laminectomy. Plan: MRI of the brain revealed two small areas of acute stroke involving the right basal ganglia/right parietal deep white matter and left posterior parietal white matter. No mass effect or midline shift. Degenerative changes with evidence of remote microvascular ischemia. I personally reviewed MRI agree with the findings. 2-D echo revealed technically difficult study. LV size and systolic function are normal. EF is estimated at 60%. No obvious regional wall motion abnormalities. Left and right atrial size are normal. No valvular abnormalities. 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 No dissection, significant stenosis or occlusion in either carotid artery. CTA of the head showed patent intracranial circulation. Patient has bilateral ischemic stroke. Await cardiology consultation for possible DOUG to rule out any embolic source. To be performed on Tuesday. Fasting a.m. lipid panel cholesterol 136, LDL 70, HDL 39, triglycerides 128. Patient was on Lipitor 40 mg daily. Will increase to 80 mg daily. Hemoglobin A1c 7.0, diabetes well-controlled B12 1648, RBC folate 479. Patient's mentions that he was not taking vitamins B6, but was taking vitamin B12 1000 mcg daily. Optimize control of blood pressure. Patient has been taking aspirin 325 mg daily. It was held for 2 days for upcoming lumbar surgery. We will resume aspirin 325 mg daily. For acute stroke, we will place patient on dual antiplatelet medication. Plavix was considered, but has interaction with Prandin. Instead we will try Brilinta loading dose 180 mg x 1, followed by 90 mg twice daily for 30 days. Decrease aspirin to 81 mg daily. Telemetry monitoring rule out any arrhythmia PT, OT, speech therapy DVT prophylaxis: Heparin 5000 units subcu every 8 hours Hold off on lumbar surgery for at least 4 weeks. Discussed with patient's family and primary physician in detail. Consider consultation with physical medicine and rehabilitation for possible inpatient rehab. Dr. Rafael Pryor starting neurology service from Tuesday.
[2023-10-09 12:15] LABS: Glucose,Whole Blood 160 mg/dL (70-110)
--- NOTE | 2023-10-09 13:00 | P.PN ---
Subjective Progress Note Date: 10/09/23 The patient is a 68-year-old male who is admitted to the hospital after experiencing strokelike symptoms. The patient had augmented speech along with left-sided weakness. Echocardiogram shows preserved LV function with mild LVH. No significant valvular abnormalities. No bubble study was performed. Lower extremity doppler shows no evidence of DVT. GENERAL: Well-appearing, well-nourished and in no acute distress. NECK: Supple without JVD or thyromegaly. LUNGS: Breath sounds clear to auscultation bilaterally. Respiration equal and unlabored. No wheezes, rales or rhonchi. HEART: Regular rate and rhythm without murmurs, rubs or gallops. S1 and S2 heard. EXTREMITIES: Normal range of motion, no edema. No clubbing or cyanosis. Peripheral pulses intact and strong. TELEMETRY: Sinus rhythm overnight IMPRESSION: Acute CVA History hypertension History of dyslipidemia History of diabetes mellitus, greater than 20 years Obesity, BMI 32 PLAN: Continue current medication regimen N.p.o. after midnight DOUG tomorrow with Dr. Arriaga I am dictating on behalf of Dr Arnol Pimentel's history/physical and assessment/plan. Objective - Vital Signs Vital signs: Vital Signs Temp 97.8 F 10/09/23 07:48 Pulse 87 10/09/23 08:00 Resp 18 10/09/23 08:00 BP 159/83 10/09/23 07:48 Pulse Ox 96 10/09/23 07:48 FiO2 Intake & Output 10/08/23 10/09/23 10/09/23 18:59 06:59 18:59 Intake Total 1078 540 Balance 1078 540 Intake: Oral 1078 540 Other: Voiding Method Toilet Toilet Toilet Urinal Urinal Urinal # Voids 3 2 - Labs CBC & Chem 7: 10/07/23 09:09 10/07/23 09:09 Labs: Abnormal Lab Results - Last 24 Hours (Table) 10/08/23 10/08/23 10/08/23 Range/Units 10:34 11:41 16:30 D-Dimer 0.66 H (<0.60) mg/L FEU POC Glucose (mg/dL) 219 H 131 H (70-110) mg/dL 10/08/23 10/09/23 Range/Units 20:41 06:32 D-Dimer (<0.60) mg/L FEU POC Glucose (mg/dL) 208 H 124 H (70-110) mg/dL
--- NOTE | 2023-10-09 13:37 | P.PN ---
Subjective Progress Note Date: 10/09/23 patient is 68-year-old gentleman past medical history significant for hypertension, hyperlipidemia, diabetes mellitus, chronic back pain who presented to the ER for facial droop and slurred speech. Patient apparently was all right yesterday around 6 PM according to his when he went to sleep after taking his medications. Patient woke up at 8 PM and noted that the patient had slurred speech, she also reported that it was left-sided facial droop. also noticed that the left side was weaker and while using his walker he could noticed that his left arm and leg were weak. There was no complaint of lightheaded and dizziness. There is no complaint of fall. There was no complaint of fecal incontinence. There was no complaint of fever or chills. Patient history of chronic back pain is being followed up outpatient by orthopedic spine and is planning laminectomy in the future. Because of the slurred speech and left-sided facial droop patient was brought to the ER Initial lab work done in the ER showed WBC 6.7, hemoglobin 13.7, platelet count 224, sodium 137, potassium 4.1, BUN 19, creatinine 0.79, glucose 128, AST 30, ALT 20, CK 47, troponin 0.012 triglycerides 128, cholesterol 136, LDL 70 EKG done in the ER showed heart rate of 74, no ST segment elevation or depression seen, no T-wave inversions seen. 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 Patient admitted to internal medicine service 10/05. Patient seen and examined. States he feels better. Slurred speech has improved. MRI brain done showed small areas of acute stroke involving the right basal ganglia/right parietal deep white matter and left posterior parietal white matter. 10/06. Patient seen and examined. Blood work done today showed WBC 10.2, hemoglobin 14.8, platelet count 274, sodium 140, potassium 3.9, BUN 17, creatinine 0.81. DOUG being scheduled for patient 6/1. Patient seen examined. Cardiology planning DOUG on Tuesday. No acute issue overnight 6 10/08. Patient seen and examined. Sitting upright in the chair. No acute issues overnight. Blood pressure was elevated, we will resume HCTZ and lisinopril REVIEW OF SYSTEMS: CONSTITUTIONAL: No fever, no malaise,. CARDIOVASCULAR: No chest pain, no palpitations, no syncope. PULMONARY: No shortness of breath, no cough, GASTROINTESTINAL: No diarrhea, no nausea, no vomiting, no abdominal pain. NEUROLOGICAL: No headaches, no weakness, PHYSICAL EXAMINATION: GENERAL: The patient is alert and oriented x3, not in any acute distress. Well developed, well nourished. HEENT: Pupils are round and equally reacting to light. EOMI. No scleral icterus. No conjunctival pallor. Normocephalic, atraumatic. No pharyngeal erythema. No thyromegaly. CARDIOVASCULAR: S1 and S2 present. No murmurs, rubs, or gallops. PULMONARY: Chest is clear to auscultation, no wheezing or crackles. ABDOMEN: Soft, nontender, nondistended, normoactive bowel sounds. No palpable organomegaly. MUSCULOSKELETAL: No joint swelling or deformity. EXTREMITIES: No cyanosis, clubbing, or pedal edema. NEUROLOGICAL: Gross neurological examination did not reveal any focal deficits. SKIN: No rashes. Assessment and plan Acute CVA Hypertension Hyper lipidemia Diabetes mellitus, last HbA1c level was 7 Monitor vital signs Monitor CBC Monitor CMP Continue telemetry monitoring Continue neurochecks Continue aspirin, Lipitor, Brilinta Continue lisinopril, HCTZ for for hypertension MRI brain done showed small areas of acute stroke involving the right basal ganglia/right parietal deep white matter and left posterior parietal white matter. Monitor blood sugar levels, continue sliding scale insulin and Levemir Neurology following, recommend dual antiplatelet therapy Cardiology planning DOUG on Tuesday PT OT following Labs and medication were reviewed.. Continue same treatment. Continue with symptomatic treatment. Resume home medication. Monitor labs and vitals. DVT and GI prophylaxis. Further recommendations as per clinical course of the patient Dictation was produced using [employer] dictation software. please excuse any grammatical, word or spelling errors. Objective - Vital Signs Vital signs: Vital Signs Temp 97.8 F 10/09/23 07:48 Pulse 87 10/09/23 07:48 Resp 18 10/09/23 07:48 BP 159/83 10/09/23 07:48 Pulse Ox 96 10/09/23 07:48 FiO2 Intake & Output 10/08/23 10/09/23 10/09/23 18:59 06:59 18:59 Intake Total 1078 540 Balance 1078 540 Intake: Oral 1078 540 Other: Voiding Method Toilet Toilet Urinal Urinal # Voids 3 2 - Labs CBC & Chem 7: 10/07/23 09:09 10/07/23 09:09 Labs: Abnormal Lab Results - Last 24 Hours (Table) 10/08/23 10/08/23 10/08/23 Range/Units 10:34 11:41 16:30 D-Dimer 0.66 H (<0.60) mg/L FEU POC Glucose (mg/dL) 219 H 131 H (70-110) mg/dL 10/08/23 10/09/23 Range/Units 20:41 06:32 D-Dimer (<0.60) mg/L FEU POC Glucose (mg/dL) 208 H 124 H (70-110) mg/dL
--- NOTE | 2023-10-09 15:30 | P.PN ---
Subjective Progress Note Date: 10/09/23 Patient was seen for a follow-up. Patient is sitting comfortably in the recliner. Offers no complaints. Patient states that he is feeling much better. No new symptoms Objective - Vital Signs Vital signs: Vital Signs Temp 97.8 F 10/09/23 07:48 Pulse 74 10/09/23 14:00 Resp 18 10/09/23 14:00 BP 155/80 10/09/23 12:00 Pulse Ox 96 10/09/23 12:00 FiO2 Intake & Output 10/08/23 10/09/23 10/09/23 18:59 06:59 18:59 Intake Total 1078 540 240 Balance 1078 540 240 Intake: Oral 1078 540 240 Other: Voiding Method Toilet Toilet Toilet Urinal Urinal Urinal # Voids 3 2 2 - Exam Mental status is normal. Speech is mildly dysarthric ( states 90% better). Cranial nerves significant for decreased left nasolabial fold. Visual pulido are full. Extraocular muscles are intact. On muscle strength testing, there is mild left pronation, but no drift.. Patient has ataxia for [id number] testing of left upper extremity. No ataxia of the lower extremity. No limb drift in the lower limbs. Sensory to touch is equal with no neglect. - Labs CBC & Chem 7: 10/07/23 09:09 10/07/23 09:09 Labs: Abnormal Lab Results - Last 24 Hours (Table) 10/08/23 10/08/23 10/09/23 Range/Units 16:30 20:41 06:32 POC Glucose (mg/dL) 131 H 208 H 124 H (70-110) mg/dL 10/09/23 Range/Units 12:13 POC Glucose (mg/dL) 160 H (70-110) mg/dL Assessment and Plan Assessment: * Acute ischemic stroke manifesting with dysarthria, left hemiparesis and left arm ataxia. Current NIH stroke scale is 4 (improving). * Hypertension * Diabetes * Hyperlipidemia * Sciatica, awaiting laminectomy. Plan: MRI of the brain revealed two small areas of acute stroke involving the right basal ganglia/right parietal deep white matter and left posterior parietal white matter. No mass effect or midline shift. Degenerative changes with evidence of remote microvascular ischemia. I personally reviewed MRI agree with the findings. 2-D echo revealed technically difficult study. LV size and systolic function are normal. EF is estimated at 60%. No obvious regional wall motion abnormalities. Left and right atrial size are normal. No valvular abnormalities. 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 No dissection, significant stenosis or occlusion in either carotid artery. CTA of the head showed patent intracranial circulation. Patient has bilateral ischemic stroke. Appreciate cardiology input. Patient undergoing DOUG and loop recorder implantation in the morning. Fasting a.m. lipid panel cholesterol 136, LDL 70, HDL 39, triglycerides 128. Patient was on Lipitor 40 mg daily. Will increase to 80 mg daily. Hemoglobin A1c 7.0, diabetes well-controlled B12 1648, RBC folate 479. Patient's mentions that he was not taking vitamins B6, but was taking vitamin B12 1000 mcg daily. Optimize control of blood pressure. Patient has been taking aspirin 325 mg daily. It was held for 2 days for upcoming lumbar surgery. We will resume aspirin 325 mg daily. For acute stroke, we will place patient on dual antiplatelet medication. Plavix was considered, but has interaction with Prandin. Instead we will try Brilinta loading dose 180 mg x 1, followed by 90 mg twice daily for 30 days. Decrease aspirin to 81 mg daily. Telemetry monitoring rule out any arrhythmia PT, OT, speech therapy DVT prophylaxis: Heparin 5000 units subcu every 8 hours Hold off on lumbar surgery for at least 4 weeks. Discussed with patient's family and primary physician in detail. Await consultation with physical medicine and rehabilitation for possible inpatient rehab. Dr. Rafael Pryor starting neurology service from Tuesday.
[2023-10-09 16:29] LABS: Glucose,Whole Blood 231 mg/dL (70-110)
[2023-10-09] MEDS: lisinopriL 10 MG TAB PO SCH ×2 (18:15→20:59)
[2023-10-09 20:15] LABS: Glucose,Whole Blood 255 mg/dL (70-110)
[2023-10-09] MEDS: cloNIDine HCL 0.1 MG TAB PO SCH (20:59)
[2023-10-10 06:10] LABS: Glucose,Whole Blood 233 mg/dL (70-110)
[2023-10-10] MEDS: lisinopriL 20 MG TAB PO SCH (08:59)
--- NOTE | 2023-10-10 10:29 | P.PN ---
Subjective Progress Note Date: 10/10/23 Principal diagnosis: TIA The patient is a pleasant 68-year-old gentleman with a past medical history significant for overweight and hypertension who was admitted to the hospital w ith a stroke documented to be of an embolic etiology because of multiple lesions on the CT scan. The plan is to pursue transesophageal echocardiogram later on today. The echo showed normal LV systolic function October 10, 2023 The patient was seen and evaluated this morning. He is asymptomatic. The pressure has been under better control on the current medical regimen. The plan is to pursue transesophageal echocardiogram later on today and possibly loop recorder if the transesophageal echocardiogram did not show any acute abnormalities. The physical examination is remarkable for stable vital signs with regular rate and rhythm and clear breathing sounds bilaterally and no edema was noted Assessment Embolic stroke Hypertension Obesity Plan Proceed with DOUG Further recommendation to follow Objective - Vital Signs Vital signs: Vital Signs Temp 98.1 F 10/09/23 20:00 Pulse 91 10/10/23 04:00 Resp 20 10/10/23 04:00 BP 123/68 10/10/23 04:00 Pulse Ox 94 L 10/10/23 04:00 FiO2 Intake & Output 10/09/23 10/10/23 10/10/23 18:59 06:59 18:59 Intake Total 240 Balance 240 Intake: Oral 240 Other: Voiding Method Toilet Toilet Urinal Urinal # Voids 2 1 1 - Labs CBC & Chem 7: 10/07/23 09:09 10/07/23 09:09 Labs: Abnormal Lab Results - Last 24 Hours (Table) 10/06/23 10/09/23 10/09/23 Range/Units 12:19 12:13 16:27 POC Glucose (mg/dL) 160 H 231 H (70-110) mg/dL Vitamin B6 73 H (5-50) ug/L 10/09/23 10/10/23 Range/Units 20:13 06:08 POC Glucose (mg/dL) 255 H 233 H (70-110) mg/dL Vitamin B6 (5-50) ug/L
[2023-10-10] MEDS: BENZOCAINE SPRAY 1 CAN TOPICAL ONE (10:57)
[2023-10-10] MEDS: SODIUM CHLORIDE 0.9% 500 ML 500 ML IV ONE (11:00)
[2023-10-10] MEDS: MIDAZOLAM 2 MG/2 ML VIAL IVP ONE (11:12)
[2023-10-10] MEDS: fentaNYL (PF) 50 MCG/ML 2 ML AMP IVP ONE (11:12)
[2023-10-10 11:36] LABS: Glucose,Whole Blood 167 mg/dL (70-110)
[2023-10-10] MEDS: fentaNYL (PF) 50 MCG/ML 2 ML AMP ONE (12:54)
[2023-10-10] MEDS ORDERED: MAGNESIUM OXIDE 400 MG TAB ONE (13:00)
[2023-10-10] MEDS ORDERED: INSULIN ASPART (NovoLOG) 100 UNIT/ML VIAL SQ ONE (13:00)
[2023-10-10] MEDS ORDERED: REPAGLINIDE 1 MG TAB ONE (13:00)
--- NOTE | 2023-10-10 13:42 | P.CONS ---
History of Present Illness - Reason for Consult Consult date: 10/10/23 Rehab Needs - History of Present Illness Mr. Jackman is a 68 yo right handed, , gentleman who lives with his in a ranch home with 3 JORGE. 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 He has a past medical history significant for hypertension, hyperlipidemia, diabetes mellitus, chronic back pain who presented to the ER for facial droop and slurred speech. Patient apparently was all right before admission, according to his when he went to sleep after taking his medications. Patient woke up and noted that the patient had slurred speech, she also reported that it was left-sided facial droop. also noticed that the left side was weaker and while using his walker he could noticed that his left arm and leg were weak. There was no complaint of lightheaded and dizziness. There is no complaint of fall. Patient history of chronic back pain is being followed up outpatient by orthopedic spine and is planning laminectomy in the future. Because of the slurred speech and left-sided facial droop patient was brought to the ER. Initial lab work done in the ER showed WBC 6.7, hemoglobin 13.7, platelet count 224, sodium 137, potassium 4.1, BUN 19, creatinine 0.79, glucose 128, AST 30, ALT 20, CK 47, troponin 0.012 triglycerides 128, cholesterol 136, LDL 70 EKG done in the ER showed heart rate of 74, no ST segment elevation or depression seen, no T-wave inversions seen.. Chest x-ray done in the ER evidence of acute cardiopulmonary process. 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 There is a persistent hypoglossal artery arising from the distal cervical right ICA supplying the intracranial right vertebral artery. Neurology did not recommend any tPA or intervention and recommended using antiplatelet medications. MRI of the brain revealed two small areas of acute stroke involving the right basal ganglia/right parietal deep white matter and left posterior parietal white matter. No mass effect or midline shift. Degenerative changes with evidence of remote microvascular ischemia. I personally reviewed MRI agree with the findings. He has had blood pressure issues, but has been under better control on the current medical regimen. The plan is to pursue transesophageal echocardiogram later on today and possibly loop recorder if the transesophageal echocardiogram did not show any acute abnormalities. 10/10/23 PMR consulted for rehab needs. He has just returned from his transesophogeal echocardiogram and is tired, but able to answer appropriately. In addition to left sided weakness from his stroke, limited by chronic LBP and right sciatica for which surgery was planned. Otherwise, denies any issues such as [place], CP, SOB, or abdominal pain. With therapies was min A bed mobilty, UE ADL, supervision for ambulating with a RW 330' once up. Review of Systems + per above, o/w 14 point ROS negative. Past Medical History Past Medical History: Diabetes Mellitus, Hyperlipidemia, Hypertension Additional Past Medical History / Comment(s): RENAL CALCULUS History of Any Multi-Drug Resistant Organisms: None Reported Past Surgical History: Hernia Repair Additional Past Surgical History / Comment(s): LITHOTRIPSY Past Anesthesia/Blood Transfusion Reactions: Postoperative Nausea & Vomiting (PONV) Additional Past Anesthesia/Blood Transfusion Reaction / Comm: STATES SEVERE Past Psychological History: No Psychological Hx Reported Smoking Status: Never smoker Past Alcohol Use History: Rare Past Drug Use History: None Reported Medications and Allergies Home Medications Medication Instructions Recorded Confirmed Type Magnesium Oxide [Mag-Ox] 400 mg PO QID 09/05/15 10/05/23 History allopurinoL [Zyloprim] 300 mg PO HS 09/05/15 10/05/23 History Enalapril [Vasotec] 10 mg PO BID-W/MEALS 04/22/16 10/05/23 History Aspirin EC [Ecotrin] 325 mg PO DIRECTED 03/19/18 10/05/23 History Cinnamon Bark [Cinnamon] 500 mg PO BID@1200,2100 03/19/18 10/05/23 History Insulin Degludec [Tresiba 10 unit SQ AC-BID 03/19/18 10/05/23 History Flextouch U-100] Pioglitazone [Actos] 45 mg PO DAILY 03/19/18 10/05/23 History Turmeric Root Extract [Turmeric] 500 mg PO BID-W/MEALS 03/19/18 10/05/23 History cloNIDine HCL [Catapres] 0.1 mg PO HS 03/19/18 10/05/23 History Fenofibrate 54 mg PO DAILY 06/01/22 10/05/23 History Insulin Aspart [NovoLOG] See Protocol SQ ACHS PRN 06/01/22 10/05/23 History Repaglinide [Prandin] 2 mg PO QID 06/01/22 10/05/23 History Atorvastatin [Lipitor] 40 mg PO W/SUPPER 10/05/23 10/05/23 History Cholecalciferol (Vitamin D3) 50 mcg PO DAILY 10/05/23 10/05/23 History [Vitamin D3 (50 Mcg = 2000 Iu)] Gabapentin [Neurontin] 400 mg PO TID 10/05/23 10/05/23 History HYDROcodone/APAP 10-325MG [Dalton 1 tab PO Q4HR PRN 10/05/23 10/05/23 History 10-325] Pantoprazole Sodium [Protonix] 40 mg PO DAILY 10/05/23 10/05/23 History Tirzepatide [Mounjaro] 7.5 mg SQ DIRECTED 10/05/23 10/05/23 History hydroCHLOROthiazide [Hydrodiuril] 50 mg PO W/SUPPER 10/05/23 10/05/23 History methocarbamoL [Robaxin-750] 750 mg PO TID 10/05/23 10/05/23 History Cyanocobalamin (Vitamin B-12) 1 tablet PO DAILY 10/07/23 10/07/23 History [Vitamin B-12] Sciatiease 1 tablet PO BID 10/07/23 10/07/23 History Allergies Allergy/AdvReac Type Severity Reaction Status Date / Time sitagliptin [From ] AdvReac abd Verified 10/05/23 08:31 pain/PANCREATITIS Physical Exam Vitals: Vital Signs Temp Pulse Resp BP Pulse Ox 10/10/23 11:13 71 16 123/86 99 10/10/23 11:00 84 15 97 10/10/23 08:00 97.0 F L 73 16 115/68 97 10/10/23 04:00 91 20 123/68 94 L 10/10/23 02:00 75 18 10/10/23 00:00 75 18 128/68 94 L 10/09/23 20:00 98.1 F 83 18 150/99 98 10/09/23 15:37 97.4 F L 78 18 160/82 97 10/09/23 14:00 74 18 Intake and Output 10/09/23 10/10/23 10/10/23 22:59 06:59 14:59 Intake Total 200 Balance 200 Intake: IV 200 Other: Voiding Method Toilet Toilet Toilet Urinal Urinal Urinal # Voids 2 1 1 Gen: NAD, alert, tired, but easily arousable Lungs: non-labored respirations Heart: Regular rate Abd: soft, nt/nd Neuro: A&Ox4 Speech dysarthric. Follows 3 step commands CN 2-12 with left facial droop, weakness MMT 5/5 Right UE/LE; 4/5 left UE/HF/KE Sensation light touch intact UE/LE Finger to nose slight dysmetria on left UE. Ext: no significant LE Edema, no calf TTP Skin: warm and dry. Results CBC & Chem 7: 10/07/23 09:09 10/07/23 09:09 Labs: Abnormal Lab Results - Last 24 Hours (Table) 10/06/23 10/09/23 10/09/23 Range/Units 12:19 16:27 20:13 POC Glucose (mg/dL) 231 H 255 H (70-110) mg/dL Vitamin B6 73 H (5-50) ug/L 10/10/23 10/10/23 Range/Units 06:08 11:34 POC Glucose (mg/dL) 233 H 167 H (70-110) mg/dL Vitamin B6 (5-50) ug/L Assessment and Plan Assessment: # CVA right basal ganglia/right parietal deep white matter and left posterior parietal white matter with dysarthria, left braeden, and ataxia - continue therapies. Generally has been min A with OT/PT - undergoing DOUG and loop recorder implantation this am. # chronic LBP with right sciatica -plan was for surgery prior to above CVA. Must hold off for at least 4 weeks. # DVT prophylaxis - on heparin sQ # hypertension # dyslipidemia # diabetes mellitus, greater than 20 years # Obesity, BMI 32 Recommendations: - per your medical management - continue therapies Patient is below his baseline functioning with his recovery from his CVA complicated by his chronic LBP and right sciatica. Would recommend short IPR stay to maximize function and ensure safety, pending insurance approval.
[2023-10-10 16:34] LABS: Glucose,Whole Blood 188 mg/dL (70-110)
--- NOTE | 2023-10-10 17:18 | P.PCN ---
Date of Procedure: 10/10/23 Operative Findings: TRANSESOPHAGEAL ECHOCARDIOGRAM CORPORATE BUYER: INDER CHRISTINA MD, RPVI INDICATION: Rule out cardiac source of embolization SEDATION: Conscious sedation COMPLICATION: None LEVEL OF SEDATION Moderate with sedation length of 12 minutes PROCEDURE DESCRIPTION: After obtaining an informed consent, the patient was brought to transesophageal echocardiogram room. Pulse oximetry and heart monitors were attached to the patient. The patient throat was sprayed using lidocaine. The patient was turned into left lateral position. After that a bite guard was placed. After an appropriate conscious sedation was initiated, the transesophageal echocardiogram was advanced through a bite guard into the mid esophagus. A 2-D echocardiogram images, color Doppler images, continuous wave images, pulse-wave images, of various cardiac structure were performed. After that the transesophageal echocardiogram probe was advanced into the stomach and fixed to obtain transgastric view was. The probe was brought into the mid esophagus. Inter-atrial septum was interrogated using 2D images, color Doppler images, and then contrast study. After that transesophageal echocardiogram was withdrawn out and upon withdrawing the descending thoracic aorta all the way up to the arch was evaluated. CONCLUSION: 1. Intact interatrial septum with no evidence of shunt 2. Intact left atrial appendage with no evidence of thrombus 3. No evidence of cardiac source of embolization 4. Normal biventricular dimension and systolic function 5. No significant valvular abnormalities
[2023-10-10 20:05] LABS: Glucose,Whole Blood 246 mg/dL (70-110)
--- NOTE | 2023-10-10 20:30 | P.PN ---
Subjective Progress Note Date: 10/10/23 HISTORY OF PRESENT ILLNESS: 68-year-old office patient with history of type 2 diabetes not well-controlled, hypertension, hyperlipidemia, obstructive sleep apnea who admitted on 10/04/2023 for facial droop and slurred speech happened overnight and had left-sided weakness as well with significant lightheadedness. Patient was admitted and seen neurology was diagnosed with acute ischemic stroke manifest with dysarthria, left hemiparesis and left arm ataxia with NIH stroke scale 4 has improved some. Known to have history of hypertension, diabetes, hyperlipidemia and chronic sciatica awaiting laminectomy. Patient ended up having MRI of the brain which showed 2 small area of acute stroke involving the right basal ganglia on the right parietal deep white matter and left posterior parietal white matter no mass effect or bleed. 2D echo showed normal ejection fraction with no wall motion abnormality no valvular heart disease or thrombus. 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 Patient is waiting to go for transesophageal echocardiogram and loop recorder monitor still no finding of A- fib at this point. Patient otherwise on the right track still doing PT OT at this point. 10/10/2023: He is waiting for transesophageal echocardiogram today and will be tired and monitor: Also Consult inpatient rehab for possible transferring patient to inpatient rehab as soon as possible and talk with him and his is excepting the fact that can give him faster recovery he is willing to.. After completing testing today and task hopefully patient be able to be transferred to [facility] by tomorrow. REVIEW OF SYSTEMS: CONSTITUTIONAL: Well-developed no acute respiratory distress. EYES: No icterus sclerae, no conjunctivitis. EARS, NOSE, MOUTH, THROAT, and FACE: No sore throat, lymphadenopathy, carotid bruits or deformity. RESPIRATORY: No SOB cough or wheezes. CARDIOVASCULAR: No CP, Palpitation, PND, Orthopnea, or angina. No arrhythmia no A-fib was found. GASTROINTESTINAL: No Abd pain, Nausea or vomiting, no Diarrhea or constipation, No GI Bleed, no distention or masses. GENITOURINARY: Negative for Hematuria or UTI, no kidney stones. INTEGUMENT/BREAST: Negative for any muscular injury with mild osteoarthritis.. HEMATOLOGIC/LYMPHATIC: Negative for bleed or purpura. MUSCULOSKELTAL: Negative for Myalgia or arthralgia. NEURLOGICAL: Still have significant slurred speech and droopy face with significant left-sided weakness. BEHAVIORAL/PSYCH: Negative. ENDOCRINE: Negative. PHYSICAL EXAMINATION: General Appearance: Alert, cooperative, no distress, appears stated age. Neck HEENT: Supple, no lymphadenopathy, no thyroid enlargement, no carotid bruits. Lungs: Clear to auscultation without crackles or wheezes no rhonchi, no deformity. Chest Wall: Chest wall normal expansion with deep inspiration no tenderness and no deformity was found on exam, no costochondral pain or discomfort. Heart: Regular rate and rhythm, S1, S2 normal, no murmur, rub or gallop. Back: Symmetric, no curvature, ROM normal, no CVA tenderness. Abdomen: Soft, non-tender, bowel sounds active all four quadrants, no masses, no organomegaly. Extremities: Extremities normal, atraumatic, no cyanosis or edema. Pulses: 2+ and symmetric. Skin: Skin color, texture, tugor normal, no rashes or lesions. Neurologic: Alert oriented x3 cranial nerves II through XII intact, positive significant weakness in the left side compared to the right side is getting stronger on a slight bit abnormal balance and gait. Slight decrease sensation lower extremity as well from neuropathy. ASSESSMENT AND PLAN: _Stroke with left-sided hemiparesis: Still no sign of A-fib, patient is waiting for transesophageal echocardiogram and loop recorder monitor continue quality assurance monitor at this point is remain on Brilinta and aspirin. _Type 2 diabetes: Remain on aggressive management with insulin NovoLog mostly, Levemir at 10 units daily still on Prandin 2 mg 4 times a day and pioglitazone 45 mg a day and was on GLP-1 product. 2 his admission which is Mounjaro 7.5 mg weekly can be resumed afterward. _Hypertension: Blood pressure still better controlled this point remain on clonidine point 1 mg nightly, hydrochlorothiazide 50 mg daily, lisinopril 30 mg twice a day can benefit from calcium channel mal if needed. _Hyperlipidemia: Still on atorvastatin 40 mg a day titrate dose probably up to 80 mg prior to his discharge. _Malformation of the vertebral artery: No intervention required for it. _Chronic lower back pain awaiting back surgery: Still waiting for surgery. _Chronic neuropathy has been on gabapentin 400 mg 3 times a day. _OSA: not on C PAP shouhd go for testing again and need CPAP or inspire. _Debility: Poststroke patient will be going for inpatient rehab. CODE STATUS: Full code. Discussion: Patient will do his procedure today, will be seen inpatient rehab and probably plan to transfer patient to inpatient rehab for tomorrow morning. Objective - Vital Signs Vital signs: Vital Signs Temp 98.1 F 10/09/23 20:00 Pulse 91 10/10/23 04:00 Resp 20 10/10/23 04:00 BP 123/68 10/10/23 04:00 Pulse Ox 94 L 10/10/23 04:00 FiO2 Intake & Output 10/09/23 10/09/23 10/10/23 06:59 18:59 06:59 Intake Total 540 240 Balance 540 240 Intake: Oral 540 240 Other: Voiding Method Toilet Toilet Toilet Urinal Urinal Urinal # Voids 2 2 1 - Labs CBC & Chem 7: 10/07/23 09:09 10/07/23 09:09 Labs: Abnormal Lab Results - Last 24 Hours (Table) 10/09/23 10/09/23 10/09/23 Range/Units 06:32 12:13 16:27 POC Glucose (mg/dL) 124 H 160 H 231 H (70-110) mg/dL 10/09/23 10/10/23 Range/Units 20:13 06:08 POC Glucose (mg/dL) 255 H 233 H (70-110) mg/dL
[2023-10-11 05:59] LABS: Glucose,Whole Blood 172 mg/dL (70-110)
[2023-10-11 08:00] VITALS: RESP 16; TEMP 97.4
--- NOTE | 2023-10-11 08:14 | P.PN ---
Subjective Progress Note Date: 10/11/23 HISTORY OF PRESENT ILLNESS: 68-year-old office patient with history of type 2 diabetes not well-controlled, hypertension, hyperlipidemia, obstructive sleep apnea who admitted on 10/04/2023 for facial droop and slurred speech happened overnight and had left-sided weakness as well with significant lightheadedness. Patient was admitted and seen neurology was diagnosed with acute ischemic stroke manifest with dysarthria, left hemiparesis and left arm ataxia with NIH stroke scale 4 has improved some. Known to have history of hypertension, diabetes, hyperlipidemia and chronic sciatica awaiting laminectomy. Patient ended up having MRI of the brain which showed 2 small area of acute stroke involving the right basal ganglia on the right parietal deep white matter and left posterior parietal white matter no mass effect or bleed. 2D echo showed normal ejection fraction with no wall motion abnormality no valvular heart disease or thrombus. 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 Patient is waiting to go for transesophageal echocardiogram and loop recorder monitor still no finding of A- fib at this point. Patient otherwise on the right track still doing PT OT at this point. 10/10/2023: He is waiting for transesophageal echocardiogram today and will be tired and monitor: Also Consult inpatient rehab for possible transferring patient to inpatient rehab as soon as possible and talk with him and his is excepting the fact that can give him faster recovery he is willing to.. After completing testing today and task hopefully patient be able to be transferred to [facility] by tomorrow. 10/11/2023: Patient had complete testing and study, Occupational Therapy was started as well will be continue physical therapy at the completion of therapy, was seen and evaluated by inpatient rehab and accepted to go to inpatient rehab [facility]. Complete his transesophageal echocardiogram which shows no wall motion abnormality, no patent foramen ovale or valvular abnormality and there is no thrombus exist in the appendage area in the left atrium. Still not able to find any thrombus require any advanced aggressive anticoagulation with novel agent such as Eliquis or Xarelto if patient will continue longer-term heart monitor if A-fib was found will require anticoagulation. Meanwhile continue dual antiplatelet agent and might require to be on Plavix for longer term afterward. REVIEW OF SYSTEMS: CONSTITUTIONAL: Well-developed no acute respiratory distress. EYES: No icterus sclerae, no conjunctivitis. EARS, NOSE, MOUTH, THROAT, and FACE: No sore throat, lymphadenopathy, carotid bruits or deformity. RESPIRATORY: No SOB cough or wheezes. CARDIOVASCULAR: No CP, Palpitation, PND, Orthopnea, or angina. No arrhythmia no A-fib was found. GASTROINTESTINAL: No Abd pain, Nausea or vomiting, no Diarrhea or constipation, No GI Bleed, no distention or masses. GENITOURINARY: Negative for Hematuria or UTI, no kidney stones. INTEGUMENT/BREAST: Negative for any muscular injury with mild osteoarthritis.. HEMATOLOGIC/LYMPHATIC: Negative for bleed or purpura. MUSCULOSKELTAL: Negative for Myalgia or arthralgia. NEURLOGICAL: Still have significant slurred speech and droopy face with significant left-sided weakness. BEHAVIORAL/PSYCH: Negative. ENDOCRINE: Negative. PHYSICAL EXAMINATION: General Appearance: Alert, cooperative, no distress, appears stated age. Neck HEENT: Supple, no lymphadenopathy, no thyroid enlargement, no carotid bruits. Lungs: Clear to auscultation without crackles or wheezes no rhonchi, no deformity. Chest Wall: Chest wall normal expansion with deep inspiration no tenderness and no deformity was found on exam, no costochondral pain or discomfort. Heart: Regular rate and rhythm, S1, S2 normal, no murmur, rub or gallop. Back: Symmetric, no curvature, ROM normal, no CVA tenderness. Abdomen: Soft, non-tender, bowel sounds active all four quadrants, no masses, no organomegaly. Extremities: Extremities normal, atraumatic, no cyanosis or edema. Pulses: 2+ and symmetric. Skin: Skin color, texture, tugor normal, no rashes or lesions. Neurologic: Alert oriented x3 cranial nerves II through XII intact, positive significant weakness in the left side compared to the right side is getting stronger on a slight bit abnormal balance and gait. Slight decrease sensation lower extremity as well from neuropathy. ASSESSMENT AND PLAN: _Stroke with left-sided hemiparesis: Completed testing no A-fib was found patient had transesophageal echocardiogram and probably will have loop recorder monitor will continue Brilinta along with aspirin longer-term patient be on Plavix after the first 3 months of Brilinta. If any finding of A-fib or flutter patient be switched to anticoagulation. _Type 2 diabetes: Remain on aggressive management with insulin NovoLog mostly, Levemir at 10 units daily still on Prandin 2 mg 4 times a day and pioglitazone 45 mg a day and was on GLP-1 product. 2 his admission which is Mounjaro 7.5 mg weekly can be resumed afterward. Resume his entire regimen as before. _Hypertension: Systolic blood pressure remain on the low 100 around 105-120 diastolic only running around 70. Blood pressure still better controlled this point remain on clonidine point 1 mg nightly, hydrochlorothiazide 50 mg daily, lisinopril 30 mg twice a day can benefit from calcium channel mal if needed. _Hyperlipidemia: Switch atorvastatin to 80 mg daily. _Malformation of the vertebral artery: No intervention required for it. _Chronic lower back pain awaiting back surgery: Surgery will be delayed at least 6 to 8 weeks. _Chronic neuropathy: Switch gabapentin to 300 mg 3 times a day. _OSA: not on C PAP shouhd go for testing again and need CPAP or inspire. _Debility: Post stroke patient will be going for inpatient rehab. Our outpatient physical therapy. CODE STATUS: Full code. Discussion: Complete testing patient is doing very well will be discharged today. Objective - Vital Signs Vital signs: Vital Signs Temp 97.8 F 10/10/23 20:00 Pulse 90 10/11/23 02:00 Resp 18 10/11/23 02:00 BP 113/71 10/11/23 00:00 Pulse Ox 97 10/11/23 00:00 FiO2 Intake & Output 10/10/23 10/10/23 10/11/23 06:59 18:59 06:59 Intake Total 674 0 Output Total 3 Balance 671 0 Intake: IV 200 Oral 474 0 Output: Urine 3 Other: Voiding Method Toilet Toilet Toilet Urinal Urinal Urinal # Voids 1 1 1 # Bowel Movements 0 - Labs CBC & Chem 7: 10/07/23 09:09 10/07/23 09:09 Labs: Abnormal Lab Results - Last 24 Hours (Table) 10/06/23 10/10/23 10/10/23 Range/Units 12:19 06:08 11:34 POC Glucose (mg/dL) 233 H 167 H (70-110) mg/dL Vitamin B6 73 H (5-50) ug/L 10/10/23 10/10/23 Range/Units 16:32 20:03 POC Glucose (mg/dL) 188 H 246 H (70-110) mg/dL Vitamin B6 (5-50) ug/L
--- NOTE | 2023-10-11 08:15 | P.DS ---
Providers Date of admission: 10/04/23 23:32 Attending physician: Lev Kuhn Consults: 10/04/23 23:30 Consult Physician Routine Consulting Provider: Rene Koroma Consult Reason/Comments: dysarthria and facial droop Do you want consulting provider notified?: Yes 10/07/23 08:04 Consult Physician Routine Consulting Provider: Arnol Pimentel Consult Reason/Comments: CVA/DOUG Do you want consulting provider notified?: Yes 10/07/23 18:03 Consult Physician Routine Consulting Provider: Leonardo Yanes Consult Reason/Comments: Consider in patient rehab for CVA Do you want consulting provider notified?: Yes Primary care physician: [facility] Course: HISTORY OF PRESENT ILLNESS: 68-year-old office patient with history of type 2 diabetes not well-controlled, hypertension, hyperlipidemia, obstructive sleep apnea who admitted on 10/04/2023 for facial droop and slurred speech happened overnight and had left-sided weakness as well with significant lightheadedness. Patient was admitted and seen neurology was diagnosed with acute ischemic stroke manifest with dysarthria, left hemiparesis and left arm ataxia with NIH stroke scale 4 has improved some. Known to have history of hypertension, diabetes, hyperlipidemia and chronic sciatica awaiting laminectomy. Patient ended up having MRI of the brain which showed 2 small area of acute stroke involving the right basal g anglia on the right parietal deep white matter and left posterior parietal white matter no mass effect or bleed. 2D echo showed normal ejection fraction with no wall motion abnormality no valvular heart disease or thrombus. 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 Patient is waiting to go for transesophageal echocardiogram and loop recorder monitor still no finding of A- fib at this point. Patient otherwise on the right track still doing PT OT at this point. 10/10/2023: He is waiting for transesophageal echocardiogram today and will be tired and monitor: Also Consult inpatient rehab for possible transferring patient to inpatient rehab as soon as possible and talk with him and his is excepting the fact that can give him faster recovery he is willing to.. After completing testing today and task hopefully patient be able to be transferred to [facility] by tomorrow. 10/11/2023: Patient had complete testing and study, Occupational Therapy was started as well will be continue physical therapy at the completion of therapy, was seen and evaluated by inpatient rehab and accepted to go to inpatient rehab [facility]. Complete his transesophageal echocardiogram which shows no wall motion abnormality, no patent foramen ovale or valvular abnormality and there is no thrombus exist in the appendage area in the left atrium. REVIEW OF SYSTEMS: CONSTITUTIONAL: Well-developed no acute respiratory distress. EYES: No icterus sclerae, no conjunctivitis. EARS, NOSE, MOUTH, THROAT, and FACE: No sore throat, lymphadenopathy, carotid bruits or deformity. RESPIRATORY: No SOB cough or wheezes. CARDIOVASCULAR: No CP, Palpitation, PND, Orthopnea, or angina. No arrhythmia no A-fib was found. GASTROINTESTINAL: No Abd pain, Nausea or vomiting, no Diarrhea or constipation, No GI Bleed, no distention or masses. GENITOURINARY: Negative for Hematuria or UTI, no kidney stones. INTEGUMENT/BREAST: Negative for any muscular injury with mild osteoarthritis.. HEMATOLOGIC/LYMPHATIC: Negative for bleed or purpura. MUSCULOSKELTAL: Negative for Myalgia or arthralgia. NEURLOGICAL: Still have significant slurred speech and droopy face with significant left-sided weakness. BEHAVIORAL/PSYCH: Negative. ENDOCRINE: Negative. PHYSICAL EXAMINATION: General Appearance: Alert, cooperative, no distress, appears stated age. Neck HEENT: Supple, no lymphadenopathy, no thyroid enlargement, no carotid bruits. Lungs: Clear to auscultation without crackles or wheezes no rhonchi, no deformity. Chest Wall: Chest wall normal expansion with deep inspiration no tenderness and no deformity was found on exam, no costochondral pain or discomfort. Heart: Regular rate and rhythm, S1, S2 normal, no murmur, rub or gallop. Back: Symmetric, no curvature, ROM normal, no CVA tenderness. Abdomen: Soft, non-tender, bowel sounds active all four quadrants, no masses, no organomegaly. Extremities: Extremities normal, atraumatic, no cyanosis or edema. Pulses: 2+ and symmetric. Skin: Skin color, texture, tugor normal, no rashes or lesions. Neurologic: Alert oriented x3 cranial nerves II through XII intact, positive significant weakness in the left side compared to the right side is getting stronger on a slight bit abnormal balance and gait. Slight decrease sensation lower extremity as well from neuropathy. ASSESSMENT AND PLAN: _Stroke with left-sided hemiparesis: Still no sign of A-fib, patient is waiting for transesophageal echocardiogram and loop recorder monitor continue telemetry monitor at this point is remain on Brilinta and aspirin. _Type 2 diabetes: Remain on aggressive management with insulin NovoLog mostly, Levemir at 10 units daily still on Prandin 2 mg 4 times a day and pioglitazone 45 mg a day and was on GLP-1 product. 2 his admission which is Mounjaro 7.5 mg weekly can be resumed afterward. _Hypertension: Blood pressure still better controlled this point remain on clonidine point 1 mg nightly, hydrochlorothiazide 50 mg daily, lisinopril 30 mg twice a day can benefit from calcium channel mal if needed. _Hyperlipidemia: Still on atorvastatin 40 mg a day titrate dose probably up to 80 mg prior to his discharge. _Malformation of the vertebral artery: No intervention required for it. _Chronic lower back pain awaiting back surgery: Still waiting for surgery. _Chronic neuropathy has been on gabapentin 400 mg 3 times a day. _OSA: not on C PAP shouhd go for testing again and need CPAP or inspire. _Debility: Poststroke patient will be going for inpatient rehab. CODE STATUS: Full code. Discussion: Patient will do his procedure today, will be seen inpatient rehab and probably plan to transfer patient to inpatient rehab for tomorrow morning. Hospital course: The patient was admitted on 10/04/2023 for left-sided hemiparesis with facial droop, slurred speech, and left-sided weakness with significant lightheadedness. He had significant risk factor consistent with hypertension, hyperlipidemia, type 2 diabetes, and age. Patient ended up seeing neurology MRI of the brain showed 2 small area of acute stroke involving the right basal ganglia on the right parietal deep white matter and the left posterior parietal white matter. No mass effect or bleed. Testing including 2D echo failed to show any wall motion abnormality or thrombus. CT of the neck did not show any carotid stenosis but showed significant deformity of the vertebral artery which cannot explain the current finding. Ended up consulting cardiology for transesophageal echocardiogram which test was done on 10/10/2023 finding consistent with no thrombus, deformity, wall motion abnormality or valvular heart disease. Patient ended up having loop recorder monitor to watch from now or for any further arrhythmia specially A-fib. Patient was started on physical therapy and Occupational Therapy been advancing currently., His speech has improved significantly, patient able to ambulate with walker with needed help. Of course starting patient on antiplatelet agent with Brilinta 90 mg twice a day along with better control of blood sugar, better control of blood pressure and increase atorvastatin from 40 mg to 80 mg daily. Patient was seen and accepted to go to inpatient rehab at [facility] which patient will be able to go today no further testing required at this point anymore. Patient is very stable for discharge. Patient mobility and independency with family. On the day of discharge 10/11/2023 and decision for him and his to go home with health care agency visiting nurse and probably physical therapy at home. Time spent on patient discharge was over 32 minutes. Patient Condition at Discharge: Good Plan - Discharge Summary Discharge Rx Participant: No New Discharge Prescriptions: New Ticagrelor [Brilinta] 90 mg PO BID #60 tab Atorvastatin [Lipitor] 80 mg PO DAILY #30 tab Famotidine [Pepcid] 20 mg PO BID #60 tab Pyridoxine [Vitamin B-6] 100 mg PO DAILY #30 tab lisinopriL [Zestril] 20 mg PO BID #60 tab Aspirin 81 mg PO DAILY #30 tab Loratadine [Claritin] 5 mg PO DAILY #30 tab Docusate [Colace] 100 mg PO BID cap Fluticasone Nasal [place] [Flonase Nasal [place]] 1 spray EA NOSTRIL DAILY #1 ml Gabapentin [Neurontin] 300 mg PO TID #90 cap Pantoprazole [Protonix] 40 mg PO AC-BRKFST #30 tab Continue allopurinoL [Zyloprim] 300 mg PO HS Magnesium Oxide [Mag-Ox] 400 mg PO QID Cinnamon Bark [Cinnamon] 500 mg PO BID@1200,2100 cloNIDine HCL [Catapres] 0.1 mg PO HS Insulin Degludec [Tresiba Flextouch U-100 Pen] 10 unit SQ AC-BID Pioglitazone [Actos] 45 mg PO DAILY Turmeric Root Extract [Turmeric] 500 mg PO BID-W/MEALS hydroCHLOROthiazide [Hydrodiuril] 50 mg PO W/SUPPER methocarbamoL [Robaxin-750] 750 mg PO TID Pantoprazole Sodium [Protonix] 40 mg PO DAILY Insulin Aspart [NovoLOG] See Protocol SQ ACHS PRN PRN Reason: Blood Sugar - High Repaglinide [Prandin] 2 mg PO QID Fenofibrate 54 mg PO DAILY Cholecalciferol (Vitamin D3) [Vitamin D3 (50 Mcg = 2000 Iu)] 50 mcg PO DAILY Tirzepatide [Mounjaro] 7.5 mg SQ DIRECTED Cyanocobalamin (Vitamin B-12) [Vitamin B-12] 1 tablet PO DAILY Sciatiease 1 tablet PO BID HYDROcodone/APAP 10-325MG [[place] 10-325] 1 tab PO Q4HR PRN #60 tab PRN Reason: Pain Discontinued Enalapril [Vasotec] 10 mg PO BID-W/MEALS Aspirin EC [Ecotrin] 325 mg PO DIRECTED Atorvastatin [Lipitor] 40 mg PO W/SUPPER Gabapentin [Neurontin] 400 mg PO TID Discharge Medication List Magnesium Oxide [Mag-Ox] 400 mg PO QID 09/05/15 [History] allopurinoL [Zyloprim] 300 mg PO HS 09/05/15 [History] Cinnamon Bark [Cinnamon] 500 mg PO BID@1200,2100 03/19/18 [History] Insulin Degludec [Tresiba Flextouch U-100 Pen] 10 unit SQ AC-BID 03/19/18 [History] Pioglitazone [Actos] 45 mg PO DAILY 03/19/18 [History] Turmeric Root Extract [Turmeric] 500 mg PO BID-W/MEALS 03/19/18 [History] cloNIDine HCL [Catapres] 0.1 mg PO HS 03/19/18 [History] Fenofibrate 54 mg PO DAILY 06/01/22 [History] Insulin Aspart [NovoLOG] See Protocol SQ ACHS PRN 06/01/22 [History] Repaglinide [Prandin] 2 mg PO QID 06/01/22 [History] Cholecalciferol (Vitamin D3) [Vitamin D3 (50 Mcg = 2000 Iu)] 50 mcg PO DAILY 10/05/23 [History] Pantoprazole Sodium [Protonix] 40 mg PO DAILY 10/05/23 [History] Tirzepatide [Mounjaro] 7.5 mg SQ DIRECTED 10/05/23 [History] hydroCHLOROthiazide [Hydrodiuril] 50 mg PO W/SUPPER 10/05/23 [History] methocarbamoL [Robaxin-750] 750 mg PO TID 10/05/23 [History] Cyanocobalamin (Vitamin B-12) [Vitamin B-12] 1 tablet PO DAILY 10/07/23 [History] Sciatiease 1 tablet PO BID 10/07/23 [History] Aspirin 81 mg PO DAILY #30 tab 10/11/23 [Rx] Atorvastatin [Lipitor] 80 mg PO DAILY #30 tab 10/11/23 [Rx] Docusate [Colace] 100 mg PO BID cap 10/11/23 [Rx] Famotidine [Pepcid] 20 mg PO BID #60 tab 10/11/23 [Rx] Fluticasone Nasal [place] [Flonase Nasal [place]] 1 spray EA NOSTRIL DAILY #1 ml 0 10/11/23 [Rx] Gabapentin [Neurontin] 300 mg PO TID #90 cap 10/11/23 [Rx] HYDROcodone/APAP 10-325MG [[place] 10-325] 1 tab PO Q4HR PRN #60 tab 10/11/23 [Rx] Loratadine [Claritin] 5 mg PO DAILY #30 tab 10/11/23 [Rx] Pantoprazole [Protonix] 40 mg PO AC-BRKFST #30 tab 10/11/23 [Rx] Pyridoxine [Vitamin B-6] 100 mg PO DAILY #30 tab 10/11/23 [Rx] Ticagrelor [Brilinta] 90 mg PO BID #60 tab 10/11/23 [Rx] lisinopriL [Zestril] 20 mg PO BID #60 tab 10/11/23 [Rx] Follow up Appointment(s)/Referral(s): Arnol Pimentel MD [STAFF PHYSICIAN] - 1 Week (Office will call you to schedule follow up appoitment) [facility], [NON-STAFF] - 1 Week Lev Kuhn MD [Primary Care Provider] - 10/19/23 10:30 am Juan M Howell MD [Medical Doctor] - 1 Week (Office will only schedule with patient. Please call to schedule follow up appoitment. ) Patient Instructions/Handouts: Ischemic Stroke (IP) Discharge Disposition: TRANSFER TO SHORT TERM HOSP
[2023-10-11 09:43] VITALS: BMI 32.3
[2023-10-11 11:19] LABS: Glucose,Whole Blood 331 mg/dL (70-110)
[2023-10-11 11:26] VITALS: BP 105/67; PULSE 75
--- NOTE | 2023-10-11 14:59 | P.PN ---
Subjective Progress Note Date: 10/11/23 TIA The patient is a pleasant 68-year-old gentleman with a past medical history significant for overweight and hypertension who was admitted to the hospital with a stroke documented to be of an embolic etiology because of multiple lesions on the CT scan. The plan is to pursue transesophageal echocardiogram later on today. The echo showed normal LV systolic function October 10, 2023 The patient was seen and evaluated this morning. He is asymptomatic. The pressure has been under better control on the current medical regimen. The plan is to pursue transesophageal echocardiogram later on today and possibly loop recorder if the transesophageal echocardiogram did not show any acute abnormalities. The physical examination is remarkable for stable vital signs with regular rate and rhythm and clear breathing sounds bilaterally and no edema was noted 10/10 Yesterday, patient underwent DOUG that revealed no evidence of intra-atrial septum shunt, no evidence of thrombus in the left atrial appendage, no evidence of cardiac source of embolization, normal biventricular dimension and systolic function, no significant valvular abnormalities. Patient has been prepared for discharge home today. There has been a discussion about implantation of loop recorder. We will reach out to Dr. Pimentel to see if this will be completed prior to discharge. Other option is that patient will have this done as an outpatient. Patient has been doing very well with physical therapy and no longer qualifies for inpatient rehab and plan is to go home today. Blood pressure 105/67, heart rate 75. Examination, regular heart rate and rhythm, clear breath sounds bilaterally, no lower extremity edema. Assessment Embolic stroke Hypertension Obesity Plan Patient is cleared for discharge from cardiology and may follow-up with Dr. Pimentel in 1 week. Nurse practitioner note has been reviewed, I agree with documented findings and plan of care. Patient was seen and examined. Objective - Vital Signs Vital signs: Vital Signs Temp 97.4 F L 10/11/23 07:59 Pulse 75 10/11/23 11:25 Resp 16 10/11/23 11:25 BP 105/67 10/11/23 11:25 Pulse Ox 97 10/11/23 11:25 FiO2 Intake & Output 10/10/23 10/11/23 10/11/23 18:59 06:59 18:59 Intake Total 674 0 250 Output Total 3 Balance 671 0 250 Weight 90.718 kg Intake: IV 200 10 Invasive Line 3 10 Oral 474 0 240 Output: Urine 3 Other: Voiding Method Toilet Toilet Toilet Urinal Urinal Urinal # Voids 1 1 # Bowel Movements 0 - Labs CBC & Chem 7: 10/07/23 09:09 10/07/23 09:09 Labs: Abnormal Lab Results - Last 24 Hours (Table) 10/10/23 10/10/23 10/11/23 Range/Units 16:32 20:03 05:58 POC Glucose (mg/dL) 188 H 246 H 172 H (70-110) mg/dL 10/11/23 Range/Units 11:17 POC Glucose (mg/dL) 331 H (70-110) mg/dL
== END 2023-10-11 16:10 | disposition short-term general hospital (02) | DRG 65 ==
LOC: EC 21:46 → 3SCARD 23:32
PROVIDERS: ADMIT Internal Medicine Geriatric Medicine; ATTEND Internal Medicine Geriatric Medicine
PROC: B246ZZ4 Ultrasonography of Right and Left Heart, Transesophageal (ICD-10-PCS; principal; 2023-10-10 11:30)
DX: I63.40 Cerebral infarction due to embolism of unspecified cerebral artery (principal); G81.94 Hemiplegia, unspecified affecting left nondominant side; R47.81 Slurred speech; Z68.32 Body mass index [BMI] 32.0-32.9, adult; R29.705 NIHSS score 5; R29.810 Facial weakness; E66.9 Obesity, unspecified; E11.42 Type 2 diabetes mellitus with diabetic polyneuropathy; R47.1 Dysarthria and anarthria; R27.0 Ataxia, unspecified; G89.29 Other chronic pain; G47.33 Obstructive sleep apnea (adult) (pediatric); E78.5 Hyperlipidemia, unspecified; M54.41 Lumbago with sciatica, right side; I72.6 Aneurysm of vertebral artery; I10 Essential (primary) hypertension; I48.91 Unspecified atrial fibrillation; Z79.02 Long term (current) use of antithrombotics/antiplatelets; Z79.82 Long term (current) use of aspirin; Z79.4 Long term (current) use of insulin; Z79.84 Long term (current) use of oral hypoglycemic drugs; Z79.899 Other long term (current) drug therapy; Z86.73 Personal history of transient ischemic attack (TIA), and cerebral infarction without residual deficits; Z87.442 Personal history of urinary calculi; Z88.1 Allergy status to other antibiotic agents; Z87.19 Personal history of other diseases of the digestive system
CPT/HCPCS: 36415; 70450; 70496; 70498; 70551; 71046; 80053; 80061; 82550; 82607; 82747; 83036; 84207; 84484; 85025; 85379; 85610; 85730; 93005; 93306; 93312; 93320; 93325; 93970; 96360; 96361; 99291

== ENCOUNTER 2023-12-01 13:08 | Day surgery (SDC) | payer MEDICARE ==
[2023-12-01] MEDS: SODIUM CHLORIDE 0.9% 1,000 ML IV SCH (13:28)
[2023-12-01] MEDS: IV FLUID CONTINUATION 1,000 ML IV ONE (13:29)
[2023-12-01 13:42] VITALS: BP 142/68; RESP 16; TEMP 97.1
[2023-12-01 13:44] LABS: Glucose,Whole Blood 114 mg/dL (70-110)
[2023-12-01] MEDS: LIDOCAINE 1% INJ 10MG/ML (20 ML MDV) SQ ONE (14:40)
[2023-12-01] MEDS: ceFAZolin 10 GM VIAL IVPB ONE (14:40)
--- NOTE | 2023-12-01 15:02 | P.EPPROC ---
- EP Procedure Note Electrophysiology Procedure Note: Loop monitor implant Primary physicians: Easement Man: Dr. Pimentel Indication: Cryptogenic stroke Patient was brought to the EP lab in a fasting state. Written informed consent was obtained prior to the procedure. The left pectoral area was prepped and draped per protocol. Intravenous antibiotic was administered preoperatively. A subcutaneous Loop monitor was implanted successfully and the wound was closed per protocol. The device was programmed to detect significant katharine- arrhythmic and tachy-arrhythmic events, per protocol. Device and programming details: Atrial fibrillation protocol detection
[2023-12-01 15:41] VITALS: PULSE 80
== END 2023-12-01 15:29 | disposition home or self-care (01) ==
LOC: CATHEP 13:08
PROVIDERS: ATTEND Internal Medicine Clinical Cardiac Electrophysiology
DX: I63.9 Cerebral infarction, unspecified (principal); I10 Essential (primary) hypertension; E78.5 Hyperlipidemia, unspecified; E11.9 Type 2 diabetes mellitus without complications; E66.9 Obesity, unspecified; Z79.84 Long term (current) use of oral hypoglycemic drugs; Z79.82 Long term (current) use of aspirin; Z79.899 Other long term (current) drug therapy
CPT/HCPCS: 33285; C1764; J0690; J2001

== ENCOUNTER → 2024-01-13 | Outpatient (CLI) | payer MEDICARE | END | disposition home or self-care (01) | LOC: LABPAT 08:50 | PROVIDERS: ATTEND Orthopaedic Surgery | DX: Z22.322 Carrier or suspected carrier of Methicillin resistant Staphylococcus aureus | CPT/HCPCS: 36415; 86850; 86900; 86901; 87070 ==

== ENCOUNTER 2024-01-16 06:07 | Day surgery (SDC) | payer MEDICARE ==
[2024-01-10 14:41] VITALS: BMI 31.4
--- NOTE | 2024-01-15 18:58 | P.HPOR ---
History of Present Illness H&P Date: 01/13/24 [facility] [address] [place] [address]| DO MARY AL, MSN, [facility] Patient Name: Javon Jackman Age/Sex: 68 Male : 1955 DATE OF SERVICE: Jan 13, 2024 8:00?AM VISIT TYPE: PREOPERATIVE H&P ApprovedRMG DEMOGRAPHICS: Height: 56 Weight: 202 BMI: 32.60 Occupation: retired CHIEF COMPLAINT: * RLE pain and weakness * Low back pain * VAS: 4 HISTORY: * Javon is a 68 yo male who presents for evaluation of his RLE pain and herniated disc. He has been seeing Mary cardenas [employer] and treated with PT, HEP, MEdications, INjections all of which have failed to alleviate his sx and help him. HE states the PT made him worse. HE states continued RLE pain and weakness that travels down his leg to his foot. He states thigh pain. He states no new injury to the area at this time and that he is ready for surgery. He is scheduled for Tuesday at this time. Patient denies any f/c/sob/cp, perineal numbness or tingling, bowel or bladder incontinence/retention. Patient is ambulatory The patients' past social, medical, family, surgical history, as well as review of systems, have been reviewed. Please refer to the Neurosurgery History and Physical form that has been scanned into our electronic medical record system. 16 points review of systems completed and as stated in HPI, all other systems reviewed are negative. PREVIOUS TREATMENTS: PAST IMAGING: -YES TRAUMA RELATED: -NO WORK RELATED: -NO PT IN LAST 6 MONTHS: -YES PHYSICIAN DIRECTED HOME EXERCISE PROGRAM: -YES ACTIVITY MODIFICATION: -YES MEDICATIONS: -YES ALTERNATIVE INTERVENTIONS (CHIROPRACTIC, ACUPUNCTURE, MASSAGE, RICE): -YES BRACING: -NO INJECTIONS (HARRY, TF, RFA): -YES -OTHER: NA MEDICAL HISTORY: Past Medical History: REVIEWED STATED IN CHART Past Surgical History: REVIEWED STATED IN CHART Social History: REVIEWED STATED IN CHART * Smoking/ Tobacco use: Never Smoker * ETOH use: None * Substance use: None Family History: REVIEWED STATED IN CHART Current Medications: REVIEWED STATED IN CHART * See nursing list. Reviewed with pt. PHYSICAL EXAM: General: AOX3, NAD, Well hydrate, Well nourished HEENT: No lumps or masses Extremities: No color changes, no pooling Heart: RRR, no gallop, no rub Lungs: CTAB, no w/r/r INTEGUMENT: Appearance: Normal color and turgor Surgical Incisions: NA Hairy Patches: ABSENT Dorsal Skin Dimples: Normal [employer] spots: ABSENT PALPATION: (TTP) Midline: NO Paracervical: NO Parathoracic: NO Paralumbar: YES SIJ TESTING: Not Tested POSTURAL BALANCE: -Coronal: BALANCED -Sagittal: BALANCED -Shoulder height: LEVEL -Pelvic Girdle: LEVEL ROM AND APPEARANCE: Neck: UNRESTRICTED Lumbar: RESTRICTED WITH PAIN Shoulders: Symmetrical Hips: Symmetrical Knees: Symmetrical Hands: Symmetrical Feet: Symmetrical VASCULAR STATUS: RUE- 2 LUE-2 RLE-2 LLE-2 Edema: NONE NEUROLOGICAL EXAMINATION: Mental Status: Awake, alert, oriented fully with normal attention, concentration and memory. Fluent appropriate speech. CRANIAL NERVES: I: Olfactory not tested. II: Visual acuity normal, no visual field deficit noted with confrontation. III,IV: Normal pupillary reflexes & intact extraocular movements without nystagmus. V,: Intact symmetrical facial sensation. VII: Intact symmetrical facial motor movementVIII: Hearing intact. IX,X: Intact gag, swallow, & normal voice. XI: Sternocleidomastoid, trapezius function intact. XII: Tongue midline with normal movements. TENSIONING: L'HERMITTE'S SIGN: NEGATIVE SPURLING'S SIGN: NEGATIVE CUBITAL COMPRESSION: NEGATIVE TINEL'S AT WRIST: NEGATIVE SLR:POSITIVERIGHT CROSSED SLR: POSITIVE MOTOR EXAM (0-5/5, NT) Muscle appearance: * Symmetrical, without signs of atrophy or dystrophy UPPER EXTREMITY RIGHT LEFT SHOULDER ABDUCTION 5 5 BICEP 5 5 TRICEP 5 5 WRIST EXTENSION 5 5 INTRINSICS 5 5 DYNAMIC ETCHING PROCESSOR 5 5 LOWER EXTREMITY HIP FLEXION 5 5 KNEE FLEXION 4 5 KNEE EXTENSION 4 5 DORSIFLEXION 4 5 PLANTAR FLEXION 4 5 EHL 5 5 FHL 5 5 REFLEXES (0-4/2, NT): RIGHT LEFT BICEP 2 2 TRICEP 2 2 BRACHIORADIALIS 2 2 PATELLAR 2 2 ACHILLES 1 2 PATHOLOGICAL REFLEXES: RIGHT LEFT HOFFMANS ABSENT ABSENT CLONUS ABSENT ABSENT BABINSKI ABSENT ABSENT Rectal Tone: INTACT SENSATION (0-4, NT): Intact to light touch and pain sensation to C5-T1 as well as L2-S2 except that noted below Hyperesthesia: ABSENT Dermatomal deficit: YES * Levels: L1-S1 RIGHT GAIT AND FUNCTIONAL EVALUATION: -Ambulatory aids YES, 2 wheeled walker -Rombergs test NEGATIVE -Hand and finger dexterity intact bilaterally? YES -Dysdiadochokinesia examination negative bilaterally? YES -Toe heel walk / heel-toe walk intact while maintaining satisfactory balance? NO -Squatting/straightening w/o assistance to a min of 60 degree knee flexion? NO -Single leg stance: NOT ABLE -Trendelenburg sign NT IMAGING: * Xray and MRI are reviewed again with pt. There is a paracentral disc herniation at L3-4 on the right side causing moderate to severe central and lateral recess stenosis as well as severe foraminal stenosis at L3-4. There are no lesions or fractures noted at this time. Spondylosis noted L3-S1 that is moderate. IMPRESSION: It was my pleasure to have seen and examined Javon Jackman. I reviewed the patient's clinical syndrome, physical findings, and imaging studies during the appointment today. It is my impression that the patient has a diagnosis of. 1. LUMBAR DISC HERNIATION WITH RADICULOPATHY 2. LOWER EXTREMITY RADICULOPATHY 3. LOWER EXTREMITY WEAKNESS 4. LOW BACK PAIN PLAN: Spine Surgery Clinical and Risk Review Javon Jackman is a 68 yo male presenting for evaluation of RLE pain and weakness It was my pleasure to have seen and examined Javon Jackman. In our visit today we have had a chance to go over subjective complaints, physical examination findings and treatments including the natural course history without intervention and various interventional options. The patients imaging demonstrates the following findings: * Xray and MRI are reviewed again with pt. There is a paracentral disc herniation at L3-4 on the right side causing moderate to severe central and lateral recess stenosis as well as severe foraminal stenosis at L3-4. There are no lesions or fractures noted at this time. Spondylosis noted L3-S1 that is moderate. On a physical exam, Javon Jackman demonstrates the following findings: * Positive Straight leg raise on the right with radicular sx, tensioning signs as well as pain in his L3-4 distribution of the RLE. He has ? strengths in the RLE due to pain as well as overall weakness from HNP. I have explained to the patient that as their condition progresses it will cause further neurological deficits and eventual paralysis. Based on the patients imaging, physical exam, and the rapid progression and disabling nature of their symptoms, at this time I recommend surgery in the form of a: L3-4 RIght laminoforaminotomy. I discussed the risk and benefits of this procedure at length with Javon Jackman. The patient agreed to consider pursuing the procedure above mentioned. Prior to surgery, they should follow up with her PCP (Cardio, ID, IM etc) for clearance. Questions were invited and answered, and the patient wishes to proceed as outlined below. Currently, I am recommendin. RIGHT L3-4 LAMINOFORAMINOTOMY 2. Obtain appropriate presurgical workup and clearances as discussed with the patient. 3. Review of surgical risks and benefits as well as an educational packet on the proposed surgical procedure. Risks: All surgical procedures come with inherent risks, including those related to positioning, anesthesia, intraoperative findings, and postoperative complications. It is important to understand that surgery does not come with any guarantee of a successful outcome as complications and adverse events are always possible. The patient was given a handout in the office today discussing the surgical procedure and risks associated with the intervention, both of which were discussed with the patient. These risks include but are not limited to the following: Experiencing same, different or even worse symptoms in back, neck, arms, or legs compared to before surgery. Requiring further surgery or other forms of treatment presently or at some time in the future at same or other levels of the intended spine surgery. On an extreme but fortunately relatively rare basis severe complications such as blindness, stroke, heart attack, temporary and/or permanent nerve injury, paralysis, coma, or may occur, sometimes without known explanation. Surgical complications may include but are not limited to risk of infection, fluid accumulation in the surgical dissection site, including a seroma or hematoma, that requires additional surgery, wound drainage, bleeding, new numbness or weakness, vision changes/loss, spinal fluid leakage, non-healing and/or infected incision, headaches, difficulty or inability to swallow, hoarseness, hemopneumothorax, pneumothorax, impotence, retrograde ejaculation, vaginal dryness; injury to nerves, spinal cord, blood vessels, lymphatics or other vital organs (i.e., bowel injury, injury to the great vessels); heterotop ic bone formation; complications related to the hardware such as screws, rods, cages including misplaced hardware, device failure, instrumentation at the wrong spine level, hardware fracture/breakage, or hardware loosening; vertebral failure of the spinal column above or below the newly placed hardware; retained surgical instrumentations or devices and the need for further surgery. Medical risks of the planned spine surgery include but are not limited to generalized Infections to the whole body or local areas outside of the surgical site (sepsis), heart attack, bleeding, anaphylaxis, meningitis, seizure, epilepsy, hearing loss, burn marin, laceration of the head or other areas of the body, bruising, hypersensitivity of the skin, bladder over distension; allergic reaction; shoulder injury related to positioning; fat, blood and air clots to other areas of the body like heart, lungs, brain; failure of internal organs such as lungs, kidneys, liver and excessive bleeding. If blood transfusions are necessary, note that transfusions may cause intolerance reactions such as anaphylaxis or other complex reactions. Despite best efforts, the results of spine surgery might not heal in terms of bone, soft tissues such as skin, fascia, ligaments, and joints. Additionally, in order to achieve best possible results, spine surgery may be carried out beyond the initially planned levels and involve decompression, fusion including insertion of hardware at levels other than the original intended area of surgical interest change some portions of the procedure in order to ensure the best possible outcomes. With spine surgery and spinal fusion, there are different off label uses of instrumentation (devices, implants and hardware) as well as biological substances (bone morphogenic proteins, demineralized bone matrix) as well as using extra bone from allograft sources (i.e. cadaver bone) or autograft (iliac crest bone, ribs, or the spine itself). The patient has been given information about these practices and their inherent risks and benefits. The patient has had a chance to review all the listed information, has been given print outs detailing this information, and has had all his/her questions answered to their satisfaction. It was my pleasure to have seen and examined Javon Jackman. In our visit today we have had a chance to go over my understanding of our patient's current condition, the natural course history without intervention and various interventional options. Questions were invited and answered, and the patient wishes to proceed as outlined above. I have seen and examined the patient for 25 minutes and we have spent more than 50% of the time in repeat and detailed counseling about the patient's condition, its natural course history without and as much as can be predicted with surgery and re-review of various surgical treatment options. In conclusion, Javon Jackman and requested we proceed with the above suggested surgery and are willing to accept risks and limitations of the suggested surgery as to the nature of the disease process and our best attempts at treatment for the condition. Thank you again for allowing us to be part of your patient's care. Please don't hesitate to contact me if you have any further questions. FOLLOW UP: POSTOP PLAN AT NEXT VISIT: RECHECK PATIENT EDUCATION: Medications Reviewed: YES In our visit today the patient and I have had a chance to go over my understanding of their current condition, the natural course history without intervention and various interventional options. Questions were invited and answered, and the patient wishes to proceed as outlined above. I will be sure to keep you updated after the patient returns here for further follow-up. Thank you again for your referral. Please do not hesitate to contact me if you have any further questions. Signed and authenticated by: Jan 13, 2024 8:00?AM DO Sheryl Servin [facility] [address], [address] [address] This document is confidential, intended only for the named recipient(s) and may contain information that is privileged or exempt from disclosure under applicable law. If you are not the intended recipient(s), you are notified that the dissemination, distribution or copying of this information is strictly prohibited. If you received this message in error, please notify the sender then delete this message. Past Medical History Past Medical History: CVA/TIA, Diabetes Mellitus, Hyperlipidemia, Hypertension Additional Past Medical History / Comment(s): HX RENAL CALCULUS, Type II DM, ruptured lumbar disc causing right leg weakness, CVA X2 on 10/01/23 - no residual effects. History of Any Multi-Drug Resistant Organisms: None Reported Past Surgical History: Hernia Repair Additional Past Surgical History / Comment(s): Numerous lithotripsies, bilateral inguinal hernia repair, colonoscopies, loop monitor placed. Past Anesthesia/Blood Transfusion Reactions: Postoperative Nausea & Vomiting (PONV) Additional Past Anesthesia/Blood Transfusion Reaction / Comment(s): STATES SEVERE PONV even with "twilight sedation." Smoking Status: Never smoker - Past Family History Brother(s) Family Medical History: Coronary Artery Disease (CAD) Additional Family Medical History / Comment(s): Cardiac stent. Sister(s) Family Medical History: Coronary Artery Disease (CAD) Additional Family Medical History / Comment(s): Cardiac stent. Father Additional Family Medical History / Comment(s): of heart problem age 50. Mother Family Medical History: CVA/TIA, Myocardial Infarction (PA) Additional Family Medical History / Comment(s): of brain bleed age 67 - [place] w/ TPA. Medications and Allergies Home Medications Medication Instructions Recorded Confirmed Type Magnesium Oxide [Mag-Ox] 400 mg PO QID 09/05/15 01/10/24 History allopurinoL [Zyloprim] 300 mg PO HS 09/05/15 01/10/24 History Cinnamon Bark [Cinnamon] 500 mg PO BID@1200,2100 03/19/18 01/10/24 History Insulin Degludec [Tresiba 10 unit SQ AC-BID 03/19/18 01/10/24 History Flextouch U-100 Pen] Pioglitazone [Actos] 45 mg PO DAILY 03/19/18 01/10/24 History Turmeric Root Extract [Turmeric] 500 mg PO BID-W/MEALS 03/19/18 01/10/24 History Fenofibrate 54 mg PO DAILY 06/01/22 01/10/24 History Insulin Aspart [NovoLOG] See Protocol SQ ACHS PRN 06/01/22 01/10/24 History Repaglinide [Prandin] 2 mg PO QID 06/01/22 01/10/24 History Cholecalciferol (Vitamin D3) 50 mcg PO DAILY 10/05/23 01/10/24 History [Vitamin D3 (50 Mcg = 2000 Iu)] Tirzepatide [Mounjaro] 7.5 mg SQ PEARSON 10/05/23 01/10/24 History hydroCHLOROthiazide [Hydrodiuril] 50 mg PO W/SUPPER 10/05/23 01/10/24 History methocarbamoL [Robaxin-750] 750 mg PO TID 10/05/23 01/10/24 History Cyanocobalamin (Vitamin B-12) 1 tablet PO DAILY 10/07/23 01/10/24 History [Vitamin B-12] Aspirin 81 mg PO DAILY #30 tab 10/11/23 01/10/24 Rx Atorvastatin [Lipitor] 80 mg PO DAILY #30 tab 10/11/23 01/10/24 Rx Fluticasone Nasal [place] [Flonase 1 spray EA NOSTRIL DAILY #1 ml 10/11/23 01/10/24 Rx Nasal [place]] Gabapentin [Neurontin] 300 mg PO TID #90 cap 10/11/23 01/10/24 Rx Loratadine [Claritin] 5 mg PO DAILY #30 tab 10/11/23 01/10/24 Rx Pantoprazole [Protonix] 40 mg PO AC-BRKFST #30 tab 10/11/23 01/10/24 Rx Pyridoxine [Vitamin B-6] 100 mg PO DAILY #30 tab 10/11/23 01/10/24 Rx Ticagrelor [Brilinta] 90 mg PO BID #60 tab 10/11/23 01/10/24 Rx lisinopriL [Zestril] 20 mg PO BID #60 tab 10/11/23 01/10/24 Rx Lactulose [Cephulac] 20 gm PO BID PRN 11/30/23 01/10/24 History Sennosides [Ex-Lax Chew] 15 mg PO HS 11/30/23 01/10/24 History Sennosides [Senokot] 8.6 mg PO TID 11/30/23 01/10/24 History HYDROcodone/APAP 10-325MG [[place] 1 tab PO Q8HR PRN 01/10/24 01/10/24 History 10-325] Vitamin E (Unknown Dose) 1 tab PO DAILY 01/10/24 01/10/24 History Allergies Allergy/AdvReac Type Severity Reaction Status Date / Time exenatide [From [place]] Allergy Pancreatiti Verified 01/10/24 14:07 s sitagliptin [From Januvia] AdvReac abd Verified 01/10/24 14:06 pain/PANCREATITIS Physical Examination Osteopathic Statement: *. No significant issues noted on an osteopathic structural exam other than those noted in the History and Physical/Consult.
[~2024-01-16 06:07] MED LIST changes: -LACTATED RINGERS 1,000 ML IV SCH; -LIDOCAINE 1% (10MG/ML) FOR IV START INTRADERMA PRN; +TRANEXAMIC 1,000 MG/100ML-NACL 1,000 MG in SALINE 1 100ML.BAG IVPB PRN
[2024-01-16] MEDS ORDERED: MIDAZOLAM 2 MG/2 ML VIAL IV PRN (07:00)
[2024-01-16 07:05] LABS: Glucose,Whole Blood 94 mg/dL (70-110)
[2024-01-16] MEDS: GABAPENTIN 300 MG CAP PO PRN (07:18)
[2024-01-16] MEDS: ACETAMINOPHEN TAB 500 MG TAB PO PRN (07:18)
[2024-01-16] MEDS: ONDANSETRON 4 MG/2 ML VIAL IVP PRN (07:28)
[2024-01-16] MEDS: LACTATED RINGERS 1,000 ML IV SCH (07:28)
[2024-01-16] MEDS: DEXAMETHASONE SOD PHOSPHATE 4 MG/ML 1 ML VIAL IVP STA (07:29)
[2024-01-16] MEDS ORDERED: diphenhydrAMINE 50 MG/ML 1 ML VIAL ONE (07:32)
[2024-01-16] MEDS ORDERED: KETAMINE HCL IN 0.9 % NACL 50 MG/5 ML SYRINGE ONE (07:32)
[2024-01-16] MEDS ORDERED: NEOSTIGMINE 1 MG/ML 10 ML VIAL ONE (07:32)
[2024-01-16] MEDS ORDERED: ROCURONIUM 10 MG/ML (5 ML VIAL) IV ONE (07:32)
[2024-01-16] MEDS ORDERED: SUCCINYLCHOLINE CHLORIDE 200 MG/10 ML VIAL IV ONE (07:32)
[2024-01-16] MEDS ORDERED: PROPOFOL 10 MG/ML 20 ML VIAL IV ONE (07:32)
[2024-01-16] MEDS ORDERED: MIDAZOLAM 2 MG/2 ML VIAL ONE (07:32)
[2024-01-16] MEDS ORDERED: fentaNYL (PF) 50 MCG/ML 2 ML AMP ONE (07:32)
[2024-01-16] MEDS ORDERED: PHENYLEPHRINE 10 MG/ML VIAL ONE (07:32)
[2024-01-16] MEDS ORDERED: PHENYLEPHRINE-0.9% NACL SYG 1,000 MCG/10 ML SYRINGE ONE (07:32)
[2024-01-16] MEDS ORDERED: LIDOCAINE 1% INJ 10MG/ML (20 ML MDV) ONE (07:32)
[2024-01-16] MEDS ORDERED: TRANEXAMIC 1,000 MG/100ML-NACL PREMIX BAG ONE (07:32)
[2024-01-16] MEDS ORDERED: GLYCOPYRROLATE 0.2 MG/ML 2 ML VIAL ONE (07:32)
[2024-01-16] MEDS: IV FLUID CONTINUATION 1,000 ML IV ONE (07:33)
[2024-01-16] MEDS: LACTATED RINGERS 1,000 ML IV ONE ×2 (07:35→08:30)
[2024-01-16] MEDS: BUPIVACAINE (PF) 0.5% 30 ML VIAL SQ ONE (08:04)
[2024-01-16] MEDS: LIDOCAINE 2%-EPI 1:100,000 20 ML VIAL SQ ONE (08:06)
[2024-01-16] MEDS: THROMBIN (BOVINE) 5,000 UNIT VIAL TOPICAL ONE (08:06)
--- NOTE | 2024-01-16 09:34 | P.OP ---
Date of Procedure: 01/16/24 Preoperative Diagnosis: Current Active Problems Lumbar disc herniation with radiculopathy (Acute) Lumbar disc disease with radiculopathy (Acute) Right leg weakness (Acute) Postoperative Diagnosis: Current Active Problems Lumbar disc herniation with radiculopathy (Acute) Lumbar disc disease with radiculopathy (Acute) Right leg weakness (Acute) Procedure(s) Performed: L3-4 LAMINOFORAMINOTOMY WITH FAR LATERAL DISCECOMTY AND MICRODISCECTOMY USE OF IO MICROSCOPE Implants: NONE Anesthesia: GETA Surgeon: Poncho Reynolds Harness And Bag Inspector #1: Lux Eden (DAYTON Navarro Was present and assisted with all aspects of the case from positioning to dressing placement) Estimated Blood Loss (ml): 50 IV fluids (ml): 1,200 Urine output (ml): 0 Pathology: none sent Condition: stable Disposition: PACU Indications for Procedure: Javon Jackman is a 68 yo male presenting for evaluation of RLE pain and weakness It was my pleasure to have seen and examined Javon Jackman. In our visit today we have had a chance to go over subjective complaints, physical examination findings and treatments including the natural course history without intervention and various interventional options. The patients imaging demonstrates the following findings: * Xray and MRI are reviewed again with pt. There is a paracentral disc herniation at L3-4 on the right side causing moderate to severe central and lateral recess stenosis as well as severe foraminal stenosis at L3-4. There are no lesions or fractures noted at this time. Spondylosis noted L3-S1 that is moderate. On a physical exam, Javon Jackman demonstrates the following findings: * Positive Straight leg raise on the right with radicular sx, tensioning signs as well as pain in his L3-4 distribution of the RLE. He has ? strengths in the RLE due to pain as well as overall weakness from HNP. I have explained to the patient that as their condition progresses it will cause further neurological deficits and eventual paralysis. Based on the patients imaging, physical exam, and the rapid progression and disabling nature of their symptoms, at this time I recommend surgery in the form of a: L3-4 RIght laminoforaminotomy. I discussed the risk and benefits of this procedure at length with Javon Jackman. The patient agreed to consider pursuing the procedure above mentioned. Prior to surgery, they should follow up with her PCP (Cardio, ID, IM etc) for clearance. Questions were invited and answered, and the patient wishes to proceed as outlined below. Currently, I am recommendin. RIGHT L3-4 LAMINOFORAMINOTOMY Description of Procedure: L3-4 RIGHT LAMINOFORAMINOTOMY WITH FAR LATERAL MICRODISC The patient was seen and examined in the preoperative area. All preoperative protocols were followed. Informed consent was obtained, risks and benefits of the procedure were discussed at length. Risks including bleeding infection damage to the surrounding tissue and risk of reoperation were discussed with the patient. Risk of anesthesia up to and including was discussed with the patient. These are outlined in the risk review. They were willing to accept these risks and all the risks of surgery. The patient was given a weight-based dose of antibiotics in the form of 2 g Ancef. The patient was seen and evaluated by the anesthesia team who deemed them fit for surgery. The site was marked, the patient was willing to proceed with the procedure. The patient was transferred to the operative suite by the Department of anesthesia. They were then drifted off to sleep by the department anesthesia and GETA was performed. The patient tolerated this well. Once confirmation of lines and ventilation the patient was transferred to a prone Armand table very carefully. All bony prominences including wrists, elbows, axilla, chest, hips, and thighs, and feet were padded very well. Special attention was paid to the genitalia, and these were padded accordingly. SCDs were placed on bilateral lower extremities and were connected. Arms were well padded and placed on arm boards up and out in the 90/90 position. Once in position, again we confirmed good ventilation capabilities and that lines were running appropriately. The patients Lumbar spine was then exposed. 1010s were placed outlining the incision site. Standard alcohol was used to clean the incision site and allowed to dry. C-arm was used to needle localize the pedicles at L3-4 and bio-flynn the patient and confirm level for incision which was marked with a skin marker. Operative briefing was performed with all teams and everyone in agreement to proceed. The patient was then prepped and draped in a normal sterile fashion. Timeout was then performed, and all parties agreed with the procedure to be performed. Biplanar fluoroscopy was used to localize the L3 4 level and a paramedian skin incision was made over this area. Initial dilator was sent down fluoroscopy confirmed levels and AP and lateral. I then sequentially dilated up to 26 mm to and placed an 80 mm x 26 mm retractor tube which was Secured to the table with a table arm.Microscope was then brought in for visualization. Limited myomectomy was performed over the facet joints pars and lamina of L3 and L4. Baljeet- laminotomy, partial medial facetectomy and foraminotomy were performed at L3-4 using high speed blanca and Kerrison rongeur. The ligamentum flavum was removed with Kerrison and curette. Dura and roots protected. The disc space was identified. Far lateral foraminotomy was then done in a similar fashion as to connect the decompression through the foramen and decompress the far lateral disc. Disc fragments and facet cyst was removed from the area with kerrison and pituitary. Once fragments were removed, down biting curette was used to push any medial fragments down and towards the annulotomy and decompress centrally. The disc space was irrigated, and any loose fragments removed again. Bipolar was used for hemostasis and scarring of the annulotomy. The area was irrigated, and meticulous hemostasis performed. Tubular retractor was then removed under direct visualization. The bed was inspected, and all roots have ample room and are decompressed along with the dura. There were no injuries. Retractors were then removed. The wound was copiously irrigated with NSS. The deep fascia was closed with 0 Vicryl. Deep sub-q with 0 Vicryl and superficial with 2-0 Vicryl. Subcuticular was closed with markos. The wound edges approximated well. The wound was then cleaned, and Covered with an Opifoam dressing. The patient was then transferred off the table back to their hospital bed a- traumatically. They were extubated by the department of anesthesia. They were then transferred to PACU in stable condition having tolerated the procedure with no complications.
[2024-01-16 09:55] VITALS: TEMP 97.9
[2024-01-16] MEDS: HYDROmorphone 0.5 MG/0.5 ML SYRINGE IVP PRN (10:27)
[2024-01-16 11:07] VITALS: RESP 16
[2024-01-16 11:21] LABS: Glucose,Whole Blood 149 mg/dL (70-110)
[2024-01-16 12:33] VITALS: BP 116/59; PULSE 80
--- NOTE | 2024-02-07 18:21 | XR ---
EXAMINATION TYPE: XR lumbar spine 2 or 3V, FL guidance operating room DATE OF EXAM: 01/16/2024 10:34 AM COMPARISON: Pre Operative Images if available both CT/MRI or plain film CLINICAL INDICATION: Male, 69 years old with history of LUMBAR LAMINECTOMY; TECHNIQUE: XR lumbar spine 2 or 3V, FL guidance operating room, multiple fluoroscopic images provided for procedure. Total fluoroscopy time: 19 seconds Total submitted images to PACS: 2 DAP: [id number] mGym2 Gycm2 uGym2 cGycm2 or equivalent. FINDINGS: Fluoroscopic images during internal fixation/arthroplasty demonstrate fixation hardware in appropriat e position. Hardware appears intact. No immediate complication identified. IMPRESSION: 1. No evidence for intraoperative complication. 2. Please see the operative/procedural note for further details. [facility], , 02/07/2024 6:18 PM
== END 2024-01-16 13:24 | disposition home or self-care (01) ==
LOC: OR 06:07
PROVIDERS: ATTEND Orthopaedic Surgery
DX: M51.16 Intervertebral disc disorders with radiculopathy, lumbar region (principal); M48.061 Spinal stenosis, lumbar region without neurogenic claudication; E11.40 Type 2 diabetes mellitus with diabetic neuropathy, unspecified; E11.65 Type 2 diabetes mellitus with hyperglycemia; I12.9 Hypertensive chronic kidney disease with stage 1 through stage 4 chronic kidney disease, or unspecified chronic kidney disease; N18.9 Chronic kidney disease, unspecified; E11.22 Type 2 diabetes mellitus with diabetic chronic kidney disease; E11.69 Type 2 diabetes mellitus with other specified complication; E78.2 Mixed hyperlipidemia; G47.33 Obstructive sleep apnea (adult) (pediatric); E66.9 Obesity, unspecified; Z68.31 Body mass index [BMI] 31.0-31.9, adult; Z88.8 Allergy status to other drugs, medicaments and biological substances; Z79.82 Long term (current) use of aspirin; Z79.899 Other long term (current) drug therapy; Z79.4 Long term (current) use of insulin; Z79.84 Long term (current) use of oral hypoglycemic drugs; Z79.02 Long term (current) use of antithrombotics/antiplatelets; Z79.51 Long term (current) use of inhaled steroids; Z79.85 Long-term (current) use of injectable non-insulin antidiabetic drugs; Z86.73 Personal history of transient ischemic attack (TIA), and cerebral infarction without residual deficits
CPT/HCPCS: 72100

== ENCOUNTER 2024-01-22 06:16 | Inpatient (IN) | payer MEDICARE ==
--- NOTE | 2024-01-22 07:00 | ED ---
General Adult HPI <Bobby Wyliessmartha Rodriguez - Last Filed: 01/22/24 11:31> - General Source: patient, EMS Mode of arrival: EMS Limitations: no limitations <Barbra De Oliveira - Last Filed: 02/01/24 16:47> - General Chief complaint: Fall Stated complaint: AMS - History of Present Illness Initial comments: 68-year-old male with past medical history of CVA, diabetes, recent lumbar surgery who presents the emergency department with altered mental status. is at bedside and provides the history. States that the patient had surgery on the ninth by Dr[address] Reynolds. He was started on gabapentin and oxycodone after surgery. Yesterday the patient was having some confused speech but the states that sometimes this is normal for him. Last night the confusion got worse. She helped him ambulate to the bathroom and this is when he had acute onset of weakness and fell to the ground. He landed on his knees. states that she was able to lower him well to where he did not injure himself. He denies hitting his head. No reported fevers. Denies any worsening back pain. Does admit to weakness in his lower extremities which was the reason why he had surgery in the first place. No pustular drainage from the site. Patient does admit to a frontal headache. No chest pain or difficulty breathing. No other alleviating, precipitating or modifying factors (Barbra De Oliveira) - Related Data Home Medications Medication Instructions Recorded Confirmed Magnesium Oxide [Mag-Ox] 400 mg PO QID 09/05/15 01/22/24 allopurinoL [Zyloprim] 300 mg PO HS 09/05/15 01/22/24 Cinnamon Bark [Cinnamon] 500 mg PO QID 03/19/18 01/22/24 Pioglitazone [Actos] 45 mg PO DAILY 03/19/18 01/22/24 Turmeric Root Extract [Turmeric] 500 mg PO BID-W/MEALS 03/19/18 01/22/24 Fenofibrate 54 mg PO DAILY 06/01/22 01/22/24 Insulin Aspart [NovoLOG] See Protocol SQ ACHS PRN 06/01/22 01/22/24 Repaglinide [Prandin] 2 mg PO QID 06/01/22 01/22/24 Cholecalciferol (Vitamin D3) 50 mcg PO W/LUNCH 10/05/23 01/22/24 [Vitamin D3 (50 Mcg = 2000 Iu)] Tirzepatide [Mounjaro] 7.5 mg SQ PEARSON 10/05/23 01/22/24 hydroCHLOROthiazide [Hydrodiuril] 50 mg PO W/SUPPER 10/05/23 01/22/24 Cyanocobalamin (Vitamin B-12) 1 tablet PO W/LUNCH 10/07/23 01/22/24 [Vitamin B-12] Lactulose [Cephulac] 10 gm PO BID PRN 11/30/23 01/22/24 Sennosides [Ex-Lax Chew] 15 - 30 mg PO HS 11/30/23 01/22/24 Sennosides [Senokot] 8.6 mg PO QID 11/30/23 01/22/24 Atorvastatin [Lipitor] 80 mg PO HS 01/22/24 01/22/24 Cyclobenzaprine [Flexeril] 5 mg PO TID PRN 01/22/24 01/22/24 Famotidine [Pepcid] 20 mg PO BID-W/MEALS 01/22/24 01/22/24 Gabapentin [Neurontin] 300 mg PO TID@0600,1400,199901/22/24 01/22/24 Lidocaine 5% Patch [Lidoderm 5% 1 patch TOPICAL DAILY 01/22/24 01/22/24 Patch] Loratadine [Claritin] 10 mg PO DAILY 01/22/24 01/22/24 Pyridoxine [Vitamin B-6] 100 mg PO W/LUNCH 01/22/24 01/22/24 Theralith Xr 1 tab PO QID 01/22/24 01/22/24 Ubidecarenone [Q-Sorb Co Q-10] 200 mg PO W/LUNCH 01/22/24 01/22/24 Previous Rx's Medication Instructions Recorded Aspirin 81 mg PO DAILY #30 tab 10/11/23 Fluticasone Nasal Benge [Flonase 1 spray EA NOSTRIL DAILY #1 ml 10/11/23 Nasal Benge] Pantoprazole [Protonix] 40 mg PO AC-BRKFST #30 tab 10/11/23 Ticagrelor [Brilinta] 90 mg PO BID #60 tab 10/11/23 lisinopriL [Zestril] 20 mg PO BID #60 tab 10/11/23 Insulin Degludec [Tresiba 25 unit SQ AC-BID #0 01/25/24 Flextouch U-100 Pen] oxyCODONE HCL/ACETAMINOPHEN 1 tab PO Q6H PRN #20 tab 01/25/24 [Percocet 5-325 mg] Allergies Allergy/AdvReac Type Severity Reaction Status Date / Time exenatide [From Byetta] Allergy Pancreatiti Verified 01/22/24 12:35 s sitagliptin [From Januvia] AdvReac abd Verified 01/22/24 12:35 pain/PANCREATITIS Review of Systems ROS Other: All systems not noted in ROS Statement are negative. <Darnell Wylie - Last Filed: 01/22/24 11:31> ROS Other: All systems not noted in ROS Statement are negative. <Barbra De Oliveira - Last Filed: 02/01/24 16:47> ROS Statement: Those systems with pertinent positive or pertinent negative responses have been documented in the HPI. Past Medical History Past Medical History: CVA/TIA, Diabetes Mellitus, Hyperlipidemia, Hypertension Additional Past Medical History / Comment(s): HX RENAL CALCULUS, Type II DM, ruptured lumbar disc causing right leg weakness, CVA X2 on 10/01/23 - no residual effects. History of Any Multi-Drug Resistant Organisms: None Reported Past Surgical History: Hernia Repair Additional Past Surgical History / Comment(s): Numerous lithotripsies, bilateral inguinal hernia repair, colonoscopies, loop monitor placed. Past Anesthesia/Blood Transfusion Reactions: Postoperative Nausea & Vomiting (PONV) Additional Past Anesthesia/Blood Transfusion Reaction / Comment(s): STATES SEVERE PONV even with "twilight sedation." Past Psychological History: No Psychological Hx Reported Smoking Status: Never smoker Past Alcohol Use History: Occasional Past Drug Use History: None Reported - Past Family History Brother(s) Family Medical History: Coronary Artery Disease (CAD) Additional Family Medical History / Comment(s): Cardiac stent. Sister(s) Family Medical History: Coronary Artery Disease (CAD) Additional Family Medical History / Comment(s): Cardiac stent. Father Additional Family Medical History / Comment(s): of heart problem age 50. Mother Family Medical History: CVA/TIA, Myocardial Infarction (CT) Additional Family Medical History / Comment(s): of brain bleed age 67 - CT w/ TPA. <Barbra De Oliveira - Last Filed: 02/01/24 16:47> General Exam Limitations: no limitations General appearance: alert, in no apparent distress Head exam: Present: atraumatic, normocephalic, normal inspection Eye exam: Present: normal appearance, PERRL, EOMI. Absent: scleral icterus, conjunctival injection, periorbital swelling ENT exam: Present: normal exam, mucous membranes moist Neck exam: Present: normal inspection. Absent: tenderness, meningismus, lymphadenopathy Respiratory exam: Present: normal lung sounds bilaterally. Absent: respiratory distress, wheezes, rales, rhonchi, stridor Cardiovascular Exam: Present: regular rate, normal rhythm, normal heart sounds. Absent: systolic murmur, diastolic murmur, rubs, gallop, clicks GI/Abdominal exam: Present: soft, normal bowel sounds. Absent: distended, tenderness, guarding, rebound, rigid Extremities exam: Present: normal inspection, full ROM, normal capillary refill. Absent: tenderness, pedal edema, joint swelling, calf tenderness Back exam: Present: other (incision site c/d/i) Neurological exam: Present: alert, oriented X3, CN II-XII intact Psychiatric exam: Present: normal affect, normal mood Skin exam: Present: warm, dry, intact, normal color. Absent: rash <Barbra De Oliveira - Last Filed: 02/01/24 16:47> Course Vital Signs 01/22/24 01/22/24 01/22/24 06:28 10:00 10:59 Temperature 98.2 F Pulse Rate 100 78 80 Respiratory 15 18 Rate Blood Pressure 128/72 134/78 124/78 O2 Sat by Pulse 94 L 98 Oximetry 01/22/24 01/22/24 01/22/24 11:00 11:30 12:00 Temperature Pulse Rate 80 80 81 Respiratory Rate Blood Pressure 119/70 O2 Sat by Pulse Oximetry 01/22/24 01/22/24 01/22/24 12:30 13:00 14:00 Temperature Pulse Rate 95 93 86 Respiratory Rate Blood Pressure 111/79 134/68 O2 Sat by Pulse Oximetry 01/22/24 01/22/2424 15:00 16:00 17:00 Temperature Pulse Rate 93 95 88 Respiratory Rate Blood Pressure 126/65 128/70 O2 Sat by Pulse Oximetry 01/22/24 01/22/24 01/22/24 18:00 20:00 20:45 Temperature 99.2 F Pulse Rate 93 90 Respiratory 16 Rate Blood Pressure 129/73 129/73 O2 Sat by Pulse Oximetry Medical Decision Making - Lab Data Result diagrams: 01/22/24 06:32 01/22/24 06:32 <Darnell Wylie - Last Filed: 01/22/24 11:31> - Lab Data Result diagrams: 01/23/24 05:45 01/23/24 05:45 <Barbra De Oliveira - Last Filed: 02/01/24 16:47> - Medical Decision Making Patient care signed out to me by previous shift physician, Dr. Colunga. Briefly, patient 68-year-old male presents to the emergency department with fall altered mental status. Plan at signout was to follow-up with pending labs and imaging. Laboratory evaluation obtained. CBC within acceptable limits. Metabolic panel coag panel urinalysis and urine drug screen are within acceptable limits. I maging studies shows no acute processes. There does appear to be some evidence of CVA that family reports patient has a history of CVA from September. Chest x-ray shows no acute processes. Patient evaluated at the bedside 11:30 AM resting comfortably. states that patient is too weak for her to take care of at home patient will be admitted consultation to PT, OT and social work (Darnell Ray) Was pt. sent in by a medical professional or institution (, PA, REGIONAL SALES ASSOCIATE, urgent care, hospital, or fci...) When possible be specific @ -No Did you speak to anyone other than the patient for history (EMS, parent, family, police, friend...)? What history was obtained from this source @ - and ems Did you review nursing and triage notes (agree or disagree)? Why? @ -I reviewed and agree with nursing and triage notes Were old charts reviewed (outside hosp., previous admission, EMS record, old EKG, old radiological studies, urgent care reports/EKG's, fci records)? Report findings @ -I reviewed operative report from January 15 Differential Diagnosis (chest pain, altered mental status, abdominal pain women, abdominal pain men, vaginal bleeding, weakness, fever, dyspnea, syncope, headache, dizziness, GI bleed, back pain, seizure, CVA, palpatations, mental health, musculoskeletal)? @ -Differential Altered Mental Status: Hypoglycemia, DKA, hypercapnia, ETOH, overdose, CO poisoning, trauma, myxedema coma, HTN encephalopathy, infection, encephalitis, psychosis, intercranial hemorrhage, hepatic encephalopathy, meningitis, CVA, this is not meant to be an all-inclusive list EKG interpreted by me (3pts min.). @ -Yes and demonstrates sinus rhythm with rate of 99. MO interval 162. QRS 93. QTc of 393. No acute ST segment elevations or depressions X-rays interpreted by me (1pt min.). @ -pending CT interpreted by me (1pt min.). @ -pending U/S interpreted by me (1pt. min.). @ -None done What testing was considered but not performed or refused? (CT, X-rays, U/S, labs)? Why? @ -None What meds were considered but not given or refused? Why? @ -None Did you discuss the management of the patient with other professionals (professionals i.e. , PA, REGIONAL SALES ASSOCIATE, lab, RT, psych nurse, social service coordinator, hay sorter, teacher, airfield services officer, casework supervisor)? Give summary @ -Dr. Wylie - will take over care of patient Was smoking cessation discussed for >3mins.? @ -No Was critical care preformed (if so, how long)? @ -No Were there social determinants of health that impacted care today? How? (Homelessness, low income, unemployed, alcoholism, drug addiction, transportation, low edu. Level, literacy, decrease access to med. care, fpc, rehab)? @ -No Was there de-escalation of care discussed even if they declined (Discuss DNR or withdrawal of care, Hospice)? DNR status @ -No What co-morbidities impacted this encounter? (DM, HTN, Smoking, COPD, CAD, Cancer, CVA, ARF, Chemo, Hep., AIDS, mental health diagnosis, sleep apnea, morbid obesity)? @ -back pain with recent surgery Was patient admitted / discharged? Hospital course, mention meds given and route, prescriptions, significant lab abnormalities, going to OR and other pertinent info. @ -Upon arrival patient seen and evaluated in room 12. Thorough history and physical exam was performed. IV was established. Laboratory studies were conducted. CT of the brain is ordered. Patient be signed out to Dr. Wylie. (Barbra De Oliveira) - Lab Data Lab Results 01/22/24 01/22/24 01/22/24 Range/Units 06:32 06:32 06:32 WBC 8.3 (3.8-10.6) k/uL RBC 3.53 L (4.30-5.90) m/uL Hgb 11.9 L (13.0-17.5) gm/dL Hct 34.4 L (39.0-53.0) % MCV 97.4 (80.0-100.0) fL MCH 33.6 (25.0-35.0) pg MCHC 34.4 (31.0-37.0) g/dL RDW 13.2 (11.5-15.5) % Plt Count 238 (150-450) k/uL MPV 8.0 Neutrophils % 61 % Lymphocytes % 23 % Monocytes % 9 % Eosinophils % 5 % Basophils % 0 % Neutrophils # 5.0 (1.3-7.7) k/uL Lymphocytes # 1.9 (1.0-4.8) k/uL Monocytes # 0.7 (0-1.0) k/uL Eosinophils # 0.4 (0-0.7) k/uL Basophils # 0.0 (0-0.2) k/uL PT 11.5 (10.0-12.5) sec INR 1.1 (<1.2) APTT 24.8 (22.0-30.0) sec Sodium 134 L (137-145) mmol/L Potassium 3.8 (3.5-5.1) mmol/L Chloride 94 L (98-107) mmol/L Carbon Dioxide 20 L (22-30) mmol/L Anion Gap 20 mmol/L BUN 21 H (9-20) mg/dL Creatinine 0.84 (0.66-1.25) mg/dL Est GFR (CKD-EPI)AfAm >90 (>60 ml/min/1.73 sqM) Est GFR (CKD-EPI)NonAf 89 (>60 ml/min/1.73 sqM) Glucose 152 H (74-99) mg/dL POC Glucose (mg/dL) (70-110) mg/dL POC Glu Steam Fitter Helper ID Calcium 9.5 (8.4-10.2) mg/dL Total Bilirubin 0.8 (0.2-1.3) mg/dL AST 44 (17-59) U/L ALT 24 (4-49) U/L Alkaline Phosphatase 61 (38-126) U/L Troponin I (0.000-0.034) ng/mL C-Reactive Protein 11.9 H (<1.0) mg/dL Total Protein 6.0 L (6.3-8.2) g/dL Albumin 3.5 (3.5-5.0) g/dL Urine Color Urine Appearance (Clear) Urine pH (5.0-8.0) Ur Specific [place] (1.001-1.035) Urine Protein (Negative) Urine Glucose (UA) (Negative) Urine Ketones (Negative) Urine Blood (Negative) Urine Nitrite (Negative) Urine Bilirubin (Negative) Urine Urobilinogen (<2.0) mg/dL Ur Leukocyte Esterase (Negative) Urine Opiates Screen (NotDetected) Ur Oxycodone Screen (NotDetected) Urine Methadone Screen (NotDetected) Acetaminophen <10.0 ug/mL Ur Barbiturates Screen (NotDetected) U Tricyclic Antidepress (NotDetected) Ur Phencyclidine Scrn (NotDetected) Ur Amphetamines Screen (NotDetected) U Methamphetamines Scrn (NotDetected) U Benzodiazepines Scrn (NotDetected) Urine Cocaine Screen (NotDetected) U Marijuana (THC) Screen (NotDetected) 01/22/24 01/22/24 01/22/24 Range/Units 06:32 08:21 10:42 WBC (3.8-10.6) k/uL RBC (4.30-5.90) m/uL Hgb (13.0-17.5) gm/dL Hct (39.0-53.0) % MCV (80.0-100.0) fL MCH (25.0-35.0) pg MCHC (31.0-37.0) g/dL RDW (11.5-15.5) % Plt Count (150-450) k/uL MPV Neutrophils % % Lymphocytes % % Monocytes % % Eosinophils % % Basophils % % Neutrophils # (1.3-7.7) k/uL Lymphocytes # (1.0-4.8) k/uL Monocytes # (0-1.0) k/uL Eosinophils # (0-0.7) k/uL Basophils # (0-0.2) k/uL PT (10.0-12.5) sec INR (<1.2) APTT (22.0-30.0) sec Sodium (137-145) mmol/L Potassium (3.5-5.1) mmol/L Chloride (98-107) mmol/L Carbon Dioxide (22-30) mmol/L Anion Gap mmol/L BUN (9-20) mg/dL Creatinine (0.66-1.25) mg/dL Est GFR (CKD-EPI)AfAm (>60 ml/min/1.73 sqM) Est GFR (CKD-EPI)NonAf (>60 ml/min/1.73 sqM) Glucose (74-99) mg/dL POC Glucose (mg/dL) 171 H (70-110) mg/dL POC Glu Steam Fitter Helper ID Luci Hurtado Calcium (8.4-10.2) mg/dL Total Bilirubin (0.2-1.3) mg/dL AST (17-59) U/L ALT (4-49) U/L Alkaline Phosphatase (38-126) U/L Troponin I <0.012 (0.000-0.034) ng/mL C-Reactive Protein (<1.0) mg/dL Total Protein (6.3-8.2) g/dL Albumin (3.5-5.0) g/dL Urine Color Colorless Urine Appearance Clear (Clear) Urine pH 7.0 (5.0-8.0) Ur Specific [place] 1.013 (1.001-1.035) Urine Protein Negative (Negative) Urine Glucose (UA) Negative (Negative) Urine Ketones Negative (Negative) Urine Blood Negative (Negative) Urine Nitrite Negative (Negative) Urine Bilirubin Negative (Negative) Urine Urobilinogen <2.0 (<2.0) mg/dL Ur Leukocyte Esterase Negative (Negative) Urine Opiates Screen Not Detected (NotDetected) Ur Oxycodone Screen Detected H (NotDetected) Urine Methadone Screen Not Detected (NotDetected) Acetaminophen ug/mL Ur Barbiturates Screen Not Detected (NotDetected) U Tricyclic Antidepress Detected H (NotDetected) Ur Phencyclidine Scrn Not Detected (NotDetected) Ur Amphetamines Screen Not Detected (NotDetected) U Methamphetamines Scrn Not Detected (NotDetected) U Benzodiazepines Scrn Not Detected (NotDetected) Urine Cocaine Screen Not Detected (NotDetected) U Marijuana (THC) Screen Not Detected (NotDetected) Disposition Decision Time: 11:31 <Darnell Wylie - Last Filed: 01/22/24 11:31> <Barbra De Oliveira - Last Filed: 02/01/24 16:47> Clinical Impression: Gravely disabled Disposition: ADMITTED IP TO THIS [facility] Condition: Fair
[2024-01-22 07:10] LABS: Basophils % (A) 0 %; Eosinophils # (A) 0.4 k/uL (0-0.7); Eosinophils % (A) 5 %; HCT 34.4 % (39.0-53.0); HGB 11.9 gm/dL (13.0-17.5); Lymphocytes # (A) 1.9 k/uL (1.0-4.8); Lymphocytes % (A) 23 %; MCH 33.6 pg (25.0-35.0); MCHC 34.4 g/dL (31.0-37.0); MCV 97.4 fL (80.0-100.0); Monocytes # (A) 0.7 k/uL (0-1.0); Monocytes % (A) 9 %; Neutrophils % (A) 61 %; Platelet Count 238 k/uL (150-450); RBC 3.53 m/uL (4.30-5.90); RDW 13.2 % (11.5-15.5); WBC 8.3 k/uL (3.8-10.6)
[2024-01-22 07:17] LABS: ALT 24 U/L (4-49); AST 44 U/L (17-59); Acetaminophen <10.0 ug/mL; African American GFR (CKD) >90 (>60 ml/min/1.73 sqM); Albumin 3.5 g/dL (3.5-5.0); Alkaline Phosphatase 61 U/L (38-126); Blood Urea Nitrogen 21 mg/dL (9-20); Calcium 9.5 mg/dL (8.4-10.2); Carbon Dioxide 20 mmol/L (22-30); Chloride 94 mmol/L (98-107); Glucose 152 mg/dL (74-99); Non-African American GFR(CKD) 89 (>60 ml/min/1.73 sqM); Total Bilirubin 0.8 mg/dL (0.2-1.3)
[2024-01-22 07:22] LABS: INR 1.1 (<1.2); Partial Thromboplastin Time 24.8 sec (22.0-30.0); Prothrombin Time 11.5 sec (10.0-12.5)
[2024-01-22 07:30] LABS: C Reactive Protein 11.9 mg/dL (<1.0)
[2024-01-22 07:33] LABS: Anion Gap 20 mmol/L; Potassium 3.8 mmol/L (3.5-5.1); Sodium 134 mmol/L (137-145)
[2024-01-22 08:22] LABS: Glucose,Whole Blood 171 mg/dL (70-110)
[2024-01-22] MEDS: SODIUM CHLORIDE 0.9% 1,000 ML IV ONE (08:22)
--- NOTE | 2024-01-22 08:29 | XR ---
EXAMINATION TYPE: XR chest 2V DATE OF EXAM: 01/22/2024 COMPARISON: 10/04/2023 HISTORY: 68-year-old male confusion, altered mental status TECHNIQUE: AP and lateral views FINDINGS: Heart borderline in size. Loop recorder device projecting along the left heart margin. Some stringy a telectasis in the lower lungs. No consolidation or pleural effusion. [facility] lower thoracic spine. IMPRESSION: Borderline heart size. Some strandy basilar atelectasis. No definite acute process. [facility], , 01/22/2024 8:26 AM
--- NOTE | 2024-01-22 09:41 | CT ---
EXAMINATION TYPE: CT brain wo con DATE OF EXAM: 01/22/2024 COMPARISON: 10/04/2023 HISTORY: 68-year-old male confusion, AMS FREQUENT FALLS TECHNIQUE: Examination was done in axial plane without intravenous contrast. Coronal and sagittal r econstructions performed. CT DLP: 1131.4 mGycm Automated exposure control for dose reduction was used. FINDINGS: There is no evidence of acute intracranial hemorrhage, acute ischemic changes, mass, mass-effect, or extra-axial fluid collection. There is no effacement of cerebral sulci or basal subarachnoid cister ns. There is no hydrocephalus. There is no midline shift. Villeda-white matter distinction is preserv ed. Mild periventricular white matter hypodensities. There is new hypodensity right perez radiata. Old l acunar infarct right basal ganglia. Benign basal ganglia calcifications Trace mucosal thickening floors of the maxillary sinuses. Mastoid air cells are pneumatized. Orbits a nd globes are intact. IMPRESSION: Mild burden of chronic small vessel ischemic disease. There is a lacunar infarct that has developed i n the interval since 10/04/2023. No acute intracranial abnormality seen. [facility], , 01/22/2024 9:39 AM
[2024-01-22 10:52] LABS: Appearance,Urine Clear (Clear); Bilirubin,Urine Negative (Negative); Blood,Urine Negative (Negative); Color,Urine Colorless; Glucose,Urine (UA) Negative (Negative); Ketones,Urine Negative (Negative); Leukocyte Esterase,Urine Negative (Negative); Nitrite,Urine Negative (Negative); Protein,Urine Negative (Negative); Specific Gravity,Urine 1.013 (1.001-1.035); Urobilinogen,Urine <2.0 mg/dL (<2.0)
[2024-01-22 11:05] LABS: Amphetamine Screen,Urine Not Detected (NotDetected); Barbiturate Screen,Urine Not Detected (NotDetected); Benzodiazepines Screen,Urine Not Detected (NotDetected); Cocaine Screen,Urine Not Detected (NotDetected); Methadone Screen, Urine Not Detected (NotDetected); Opiate Screen,Urine Not Detected (NotDetected); Oxycodone Screen, Urine Detected (NotDetected); Phencyclidine Screen,Urine Not Detected (NotDetected); Tricyclic Antidepressant,Urine Detected (NotDetected); Urn Cannabinoid Scrn Not Detected (NotDetected)
[2024-01-22] MEDS ORDERED: NALOXONE 0.4 MG/ML 1 ML VIAL IV PRN (11:29)
[2024-01-22] MEDS: SODIUM CHLORIDE 0.9% 1,000 ML IV SCH (11:39)
[2024-01-22] MEDS ORDERED: LACTULOSE 20 GM/30 ML CUP PO PRN (14:29)
--- NOTE | 2024-01-22 14:35 | P.HPIM ---
History of Present Illness H&P Date: 01/22/24 Chief Complaint: Weakness/fall 68-year-old male with past medical history of CVA, diabetes, hypertension, recent lumbar surgery who presents the emergency department with altered mental status. is at bedside and provides the history. States that the patient had surgery on the by Dr. Reynolds. He was started on gabapentin and oxycodone after surgery. Yesterday the patient was having some confused speech but the states that sometimes this is normal for him. Last night the confusion got worse. She helped him ambulate to the bathroom and this is when he had acute onset of weakness and fell to the ground. He landed on his knees. states that she was able to lower him well to where he did not injure himself. He denies hitting his head. No reported fevers. Denies any worsening back pain. Does admit to weakness in his lower extremities which was the reason why he had surgery in the first place. No pustular drainage from the site. Pat ient does admit to a frontal headache. No chest pain or difficulty breathing. states that patient is too weak for her to take care of at home patient will be admitted consultation to PT, OT and social work Blood work completed in ED reveals a WBC of 8.3, hemoglobin of 11.9 and platelet count of 238, sodium 134, potassium 3.8, BUNs/creatinine of 21/0.84 and blood glucose of 152 CT of the brain reveals chronic small vessel ischemic disease; old lacunar infarct in right basal ganglia Review of Systems REVIEW OF SYSTEMS: CONSTITUTIONAL: No fever, no malaise, no fatigue. HEENT: No recent visual problems or hearing problems. Denied any sore throat. CARDIOVASCULAR: No chest pain, orthopnea, PND, no palpitations, no syncope. PULMONARY: No shortness of breath, no cough, no hemoptysis. GASTROINTESTINAL: No diarrhea, no nausea, no vomiting, no abdominal pain. NEUROLOGICAL: No headaches, no weakness, no numbness. HEMATOLOGICAL: Denies any bleeding or petechiae. GENITOURINARY: Denies any burning micturition, frequency, or urgency. MUSCULOSKELETAL/RHEUMATOLOGICAL: Denies any joint pain, swelling, or any muscle pain. ENDOCRINE: Denies any polyuria or polydipsia. The rest of the 14-point review of systems is negative. Past Medical History Past Medical History: CVA/TIA, Diabetes Mellitus, Hyperlipidemia, Hypertension Additional Past Medical History / Comment(s): HX RENAL CALCULUS, Type II DM, ruptured lumbar disc causing right leg weakness, CVA X2 on 10/01/23 - no residual effects. History of Any Multi-Drug Resistant Organisms: None Reported Past Surgical History: Hernia Repair Additional Past Surgical History / Comment(s): Numerous lithotripsies, bilateral inguinal hernia repair, colonoscopies, loop monitor placed. Past Anesthesia/Blood Transfusion Reactions: Postoperative Nausea & Vomiting (PONV) Additional Past Anesthesia/Blood Transfusion Reaction / Comment(s): STATES SEVERE PONV even with "twilight sedation." Past Psychological History: No Psychological Hx Reported Smoking Status: Never smoker Past Alcohol Use History: Occasional Past Drug Use History: None Reported - Past Family History Brother(s) Family Medical History: Coronary Artery Disease (CAD) Additional Family Medical History / Comment(s): Cardiac stent. Sister(s) Family Medical History: Coronary Artery Disease (CAD) Additional Family Medical History / Comment(s): Cardiac stent. Father Additional Family Medical History / Comment(s): of heart problem age 50. Mother Family Medical History: CVA/TIA, Myocardial Infarction ([place]) Additional Family Medical History / Comment(s): of brain bleed age 67 - [place] w/ TPA. Medications and Allergies Home Medications Medication Instructions Recorded Confirmed Type Magnesium Oxide [Mag-Ox] 400 mg PO QID 09/05/15 01/22/24 History allopurinoL [Zyloprim] 300 mg PO HS 09/05/15 01/22/24 History Cinnamon Bark [Cinnamon] 500 mg PO QID 03/19/18 01/22/24 History Insulin Degludec [Tresiba 20 unit SQ AC-BID 03/19/18 01/22/24 History Flextouch U-100 Pen] Pioglitazone [Actos] 45 mg PO DAILY 03/19/18 01/22/24 History Turmeric Root Extract [Turmeric] 500 mg PO BID-W/MEALS 03/19/18 01/22/24 History Fenofibrate 54 mg PO DAILY 06/01/22 01/22/24 History Insulin Aspart [NovoLOG] See Protocol SQ ACHS PRN 06/01/22 01/22/24 History Repaglinide [Prandin] 2 mg PO QID 06/01/22 01/22/24 History Cholecalciferol (Vitamin D3) 50 mcg PO W/LUNCH 10/05/23 01/22/24 History [Vitamin D3 (50 Mcg = 2000 Iu)] Tirzepatide [Mounjaro] 7.5 mg SQ PEARSON 10/05/23 01/22/24 History hydroCHLOROthiazide [Hydrodiuril] 50 mg PO W/SUPPER 10/05/23 01/22/24 History Cyanocobalamin (Vitamin B-12) 1 tablet PO W/LUNCH 10/07/23 01/22/24 History [Vitamin B-12] Aspirin 81 mg PO DAILY #30 tab 10/11/23 01/22/24 Rx Fluticasone Nasal [place] [Flonase 1 spray EA NOSTRIL DAILY #1 ml 10/11/23 01/22/24 Rx Nasal [place]] Pantoprazole [Protonix] 40 mg PO AC-BRKFST #30 tab 10/11/23 01/22/24 Rx Ticagrelor [Brilinta] 90 mg PO BID #60 tab 10/11/23 01/22/24 Rx lisinopriL [Zestril] 20 mg PO BID #60 tab 10/11/23 01/22/24 Rx Lactulose [Cephulac] 10 gm PO BID PRN 11/30/23 01/22/24 History Sennosides [Ex-Lax Chew] 15 - 30 mg PO HS 11/30/23 01/22/24 History Sennosides [Senokot] 8.6 mg PO QID 11/30/23 01/22/24 History Atorvastatin [Lipitor] 80 mg PO HS 01/22/24 01/22/24 History Cyclobenzaprine [Flexeril] 5 mg PO TID PRN 01/22/24 01/22/24 History Famotidine [Pepcid] 20 mg PO BID-W/MEALS 01/22/24 01/22/24 History Gabapentin [Neurontin] 300 mg PO TID@0600,1400,2000 01/22/24 01/22/24 History Lidocaine 5% Patch [Lidoderm] 1 patch TOPICAL DAILY 01/22/24 01/22/24 History Loratadine [Claritin] 10 mg PO DAILY 01/22/24 01/22/24 History Pyridoxine [Vitamin B-6] 100 mg PO W/LUNCH 01/22/24 01/22/24 History Theralith Xr 1 tab PO QID 01/22/24 01/22/24 History Ubidecarenone [Q-Sorb Co Q-10] 200 mg PO W/LUNCH 01/22/24 01/22/24 History oxyCODONE HCL/ACETAMINOPHEN 1 tab PO Q6H PRN 01/22/24 01/22/24 History [Percocet 5-325 mg] Allergies Allergy/AdvReac Type Severity Reaction Status Date / Time exenatide [From Byetta] Allergy Pancreatiti Verified 01/22/24 12:35 s sitagliptin [From Januvia] AdvReac abd Verified 01/22/24 12:35 pain/PANCREATITIS Physical Exam Vitals: Vital Signs Temp Pulse Resp BP Pulse Ox 01/22/24 10:00 78 18 134/78 98 01/22/24 06:28 98.2 F 100 15 128/72 94 L Intake and Output 01/21/24 01/22/24 01/22/24 22:59 06:59 14:59 Other: Weight 88.451 kg General appearance: alert, in no apparent distress Head exam: Present: atraumatic, normocephalic, normal inspection Eye exam: Present: normal appearance, PERRL, EOMI. Absent: scleral icterus, conjunctival injection, periorbital swelling ENT exam: Present: normal exam, mucous membranes moist Neck exam: Present: normal inspection. Absent: tenderness, meningismus, lymphadenopathy Respiratory exam: Present: normal lung sounds bilaterally. Absent: respiratory distress, wheezes, rales, rhonchi, stridor Cardiovascular Exam: Present: regular rate, normal rhythm, normal heart sounds. Absent: systolic murmur, diastolic murmur, rubs, gallop, clicks GI/Abdominal exam: Present: soft, normal bowel sounds. Absent: distended, tenderness, guarding, rebound, rigid Extremities exam: Present: normal inspection, full ROM, normal capillary refill. Absent: tenderness, pedal edema, joint swelling, calf tenderness Neurological exam: Present: alert, oriented X3, CN II-XII intact Psychiatric exam: Present: normal affect, normal mood Skin exam: Present: warm, dry, intact, normal color. Absent: rash Results CBC & Chem 7: 01/22/24 06:32 01/22/24 06:32 Labs: Abnormal Lab Results - Last 24 Hours (Table) 01/22/24 01/22/24 01/22/24 Range/Units 06:32 06:32 08:21 RBC 3.53 L (4.30-5.90) m/uL Hgb 11.9 L (13.0-17.5) gm/dL Hct 34.4 L (39.0-53.0) % Sodium 134 L (137-145) mmol/L Chloride 94 L (98-107) mmol/L Carbon Dioxide 20 L (22-30) mmol/L BUN 21 H (9-20) mg/dL Glucose 152 H (74-99) mg/dL POC Glucose (mg/dL) 171 H (70-110) mg/dL C-Reactive Protein 11.9 H (<1.0) mg/dL Total Protein 6.0 L (6.3-8.2) g/dL Ur Oxycodone Screen (NotDetected) U Tricyclic Antidepress (NotDetected) 01/22/24 Range/Units 10:42 RBC (4.30-5.90) m/uL Hgb (13.0-17.5) gm/dL Hct (39.0-53.0) % Sodium (137-145) mmol/L Chloride (98-107) mmol/L Carbon Dioxide (22-30) mmol/L BUN (9-20) mg/dL Glucose (74-99) mg/dL POC Glucose (mg/dL) (70-110) mg/dL C-Reactive Protein (<1.0) mg/dL Total Protein (6.3-8.2) g/dL Ur Oxycodone Screen Detected H (NotDetected) U Tricyclic Antidepress Detected H (NotDetected) Assessment and Plan Assessment: 1. Weakness/falls/debility --Workup completed in ED has been unremarkable; CT of the head did not reveal any acute injury -- Patient's reporting she is unable to care for patient at home -- Patient to be admitted for PT/OT evaluation; consult to social work 2. Hyperglycemia/diabetes mellitus -Patient takes Tresiba 20 units twice daily at home; we will start with Levemir 20 units SQ twice daily; monitor Accu-Cheks before every meal and at bedtime with insulin sliding scale; continue with home dose of Actos 45 mg daily; Prandin 2 mg 4 times daily which will be placed on hold while inpatient 3. Hyperlipidemia; Lipitor 80 mg p.o. nightly; fenofibrate 54 mg daily 4. Hypertension; hydrochlorothiazide 50 mg p.o. daily; lisinopril 20 mg twice daily 5. History of coronary artery disease; patient remains on aspirin, Brilinta, statin therapy 6. Recent back surgery; patient is on Neurontin 300 mg p.o. 3 times daily, Flexeril 5 mg 3 times daily; Percocet 5 mg p.o. every 6 hours as needed 7. Vitamin D deficiency; continue with vitamin D 2000 units daily 8. Seasonal allergies; continue with nasal spray along with Claritin DVT prophylaxis; SCDs/subcu heparin CODE STATUS; full code
[2024-01-22] MEDS: FAMOTIDINE 20 MG TAB PO SCH (18:05)
[2024-01-22] MEDS: MAGNESIUM OXIDE 400 MG TAB PO SCH (18:05)
[2024-01-22 18:06] LABS: Glucose,Whole Blood 193 mg/dL (70-110)
[2024-01-22] MEDS: SENNOSIDES 8.6 MG TAB PO SCH (18:06)
[2024-01-22] MEDS: GABAPENTIN 300 MG CAP PO SCH (18:57)
[2024-01-22] MEDS: oxyCODONE-APAP 5-325MG 1 EACH TAB PO PRN (18:58)
[2024-01-22] MEDS: CYCLOBENZAPRINE 5 MG TAB PO PRN (18:58)
[2024-01-22] MEDS: allopurinoL 300 MG TAB PO SCH (20:43)
[2024-01-22] MEDS: lisinopriL 20 MG TAB PO SCH (20:43)
[2024-01-22] MEDS: TICAGRELOR 90 MG TAB PO SCH (20:43)
[2024-01-22] MEDS: ATORVASTATIN 80 MG TAB PO SCH (20:43)
[2024-01-22 22:00] LABS: Glucose,Whole Blood 217 mg/dL (70-110)
[2024-01-22] MEDS: INSULIN DETEMIR (LEVEMIR) 100 UNIT/ML SYR SQ SCH (22:23)
[2024-01-23 05:38] LABS: Glucose,Whole Blood 178 mg/dL (70-110)
[2024-01-23] MEDS: INSULIN ASPART (NovoLOG) 100 UNIT/ML VIAL SQ SCH (06:48)
[2024-01-23] MEDS: PANTOPRAZOLE 40 MG TABLET PO SCH (06:48)
[2024-01-23 08:38] LABS: Basophils # (A) 0.05 X 10*3/uL (0.00-0.10); Basophils % (A) 0.5 %; Eosinophils # (A) 0.67 X 10*3/uL (0.04-0.35); HCT 35.4 % (39.6-50.0); Lymphocytes # (A) 2.82 X 10*3/uL (0.90-5.00); Lymphocytes % (A) 29.5 %; MCH 33.1 pg (27.0-32.0); MCHC 33.9 g/dL (32.0-37.0); MCV 97.8 FL (80.0-97.0); Mean Platelet Volume 10.5 FL (9.5-12.2); Monocytes # (A) 1.15 X 10*3/uL (0.20-1.00); NRBC Per 100 WBC 0 X 10*3/uL (0.00-0.01); Neutrophils # (A) 4.82 X 10*3/uL (1.80-7.70); Neutrophils % (A) 50.6 %; Platelet Count 281 X 10*3/uL (140-440); RBC 3.62 X 10*6/uL (4.40-5.60); RDW 12.9 % (11.5-14.5); WBC 9.55 X 10*3/uL (4.50-10.00)
[2024-01-23] MEDS: LORATADINE 10 MG TAB PO SCH (08:56)
[2024-01-23] MEDS: ASPIRIN 81 MG PO SCH (08:56)
[2024-01-23] MEDS: FLUTICASONE NASAL 50MCG/SPRAY 16GM BTL EA NOSTRIL SCH (08:57)
[2024-01-23] MEDS: LIDOCAINE 4% PATCH TOPICAL SCH (08:57)
[2024-01-23 08:59] LABS: BUN/Creat Ratio 15.88 Ratio (12.00-20.00); Blood Urea Nitrogen 12.7 mg/dL (9.0-27.0); Calcium 9.5 mg/dL (8.7-10.3); Carbon Dioxide 22.1 mmol/L (21.6-31.8); Chloride 100 mmol/L (96-109); Glucose 168 mg/dL (70-110); Potassium 4.1 mmol/L (3.5-5.5); Sodium 135 mmol/L (135-145)
[2024-01-23] MEDS: PIOGLITAZONE 45 MG TAB PO SCH (10:17)
[2024-01-23] MEDS: FENOFIBRATE 54 MG TAB PO SCH (10:17)
[2024-01-23 11:28] LABS: Glucose,Whole Blood 279 mg/dL (70-110)
[2024-01-23] MEDS: PYRIDOXINE 50 MG TAB PO SCH (12:48)
[2024-01-23] MEDS: CHOLECALCIFEROL 25 MCG (1000 IU) TABLET PO SCH (12:49)
[2024-01-23] MEDS: CYANOCOBALAMIN 500 MCG TAB PO SCH (12:49)
--- NOTE | 2024-01-23 14:52 | P.CNOR ---
History of Present Illness - [facility] Consult date: 01/23/24 Consult reason: other (Recent lumbar procedure, lower extremity weakness) History of present illness: Patient is a 68-year-old male who was admitted to [facility] yesterday after 2 different reported incidence of weakness in the lower extremities and falling at home. Patient is known to our orthopedic practice, he underwent a microdiscectomy along with laminoforaminotomy of the L3-L4 region on 01/16/2024, patient was discharged the same day. Apparently the patient initially was doing very well at home. Tuesday of this past week he started to have some vague weakness and difficulty with ambulation, he did have a small fall, and then on Tuesday a very similar incidence. EMS then brought the patient to the hospital for further evaluation, he was evaluated today at bedside, his is present. Patient was admitted under internal medicine, our orthopedic team was placed on consult. On exam today he appears very comfortable. He patient has been taking Percocet 5 mg / 325 mg, gabapentin 300 mg along with Flexeril. Prior to his surgery he was taking [place] 10 mg / 325 mg from his primary care doctor. He states right now he is having minimal discomfort in his back. He states that he was left with some vague left-sided lower extremity weakness after his previous stroke. The lower back symptoms he been dealing with cause more of the right lower extremity to be weak. He feels that the right lower extremity is a little bit stronger since surgery but some generalized weakness in the bilateral lower extremities. He denies any upper extremity symptoms at this time. He denies any loss of bowel or bladder function. He denies any genital or perineal numbness or tingling. Review of Systems Constitutional: Reports as per HPI Past Medical History Past Medical History: CVA/TIA, Diabetes Mellitus, Hyperlipidemia, Hypertension Additional Past Medical History / Comment(s): HX RENAL CALCULUS, Type II DM, ruptured lumbar disc causing right leg weakness, CVA X2 on 10/01/23 - no residual effects. History of Any Multi-Drug Resistant Organisms: None Reported Past Surgical History: Hernia Repair, Orthopedic Surgery Additional Past Surgical History / Comment(s): Numerous lithotripsies, bilateral inguinal hernia repair, colonoscopies, loop monitor placed. Past Anesthesia/Blood Transfusion Reactions: Postoperative Nausea & Vomiting (PONV) Additional Past Anesthesia/Blood Transfusion Reaction / Comm: STATES SEVERE PONV even with "twilight sedation." Past Psychological History: No Psychological Hx Reported Smoking Status: Never smoker Past Alcohol Use History: Occasional Past Drug Use History: None Reported - Past Family History Brother(s) Family Medical History: Coronary Artery Disease (CAD) Additional Family Medical History / Comment(s): Cardiac stent. Sister(s) Family Medical History: Coronary Artery Disease (CAD) Additional Family Medical History / Comment(s): Cardiac stent. Father Additional Family Medical History / Comment(s): of heart problem age 50. Mother Family Medical History: CVA/TIA, Myocardial Infarction ([place]) Additional Family Medical History / Comment(s): of brain bleed age 67 - [place] w/ TPA. Medications and Allergies Home Medications Medication Instructions Recorded Confirmed Type Magnesium Oxide [Mag-Ox] 400 mg PO QID 09/05/15 01/22/24 History allopurinoL [Zyloprim] 300 mg PO HS 09/05/15 01/22/24 History Cinnamon Bark [Cinnamon] 500 mg PO QID 03/19/18 01/22/24 History Insulin Degludec [Tresiba 20 unit SQ AC-BID 03/19/18 01/22/24 History Flextouch U-100 Pen] Pioglitazone [Actos] 45 mg PO DAILY 03/19/18 01/22/24 History Turmeric Root Extract [Turmeric] 500 mg PO BID-W/MEALS 03/19/18 01/22/24 History Fenofibrate 54 mg PO DAILY 06/01/22 01/22/24 History Insulin Aspart [NovoLOG] See Protocol SQ ACHS PRN 06/01/22 01/22/24 History Repaglinide [Prandin] 2 mg PO QID 06/01/22 01/22/24 History Cholecalciferol (Vitamin D3) 50 mcg PO W/LUNCH 10/05/23 01/22/24 History [Vitamin D3 (50 Mcg = 2000 Iu)] Tirzepatide [Mounjaro] 7.5 mg SQ PEARSON 10/05/23 01/22/24 History hydroCHLOROthiazide [Hydrodiuril] 50 mg PO W/SUPPER 10/05/23 01/22/24 History Cyanocobalamin (Vitamin B-12) 1 tablet PO W/LUNCH 10/07/23 01/22/24 History [Vitamin B-12] Aspirin 81 mg PO DAILY #30 tab 10/11/23 01/22/24 Rx Fluticasone Nasal [place] [Flonase 1 spray EA NOSTRIL DAILY #1 ml 10/11/23 01/22/24 Rx Nasal [place]] Pantoprazole [Protonix] 40 mg PO AC-BRKFST #30 tab 10/11/23 01/22/24 Rx Ticagrelor [Brilinta] 90 mg PO BID #60 tab 10/11/23 01/22/24 Rx lisinopriL [Zestril] 20 mg PO BID #60 tab 10/11/23 01/22/24 Rx Lactulose [Cephulac] 10 gm PO BID PRN 11/30/23 01/22/24 History Sennosides [Ex-Lax Chew] 15 - 30 mg PO HS 11/30/23 01/22/24 History Sennosides [Senokot] 8.6 mg PO QID 11/30/23 01/22/24 History Atorvastatin [Lipitor] 80 mg PO HS 01/22/24 01/22/24 History Cyclobenzaprine [Flexeril] 5 mg PO TID PRN 01/22/24 01/22/24 History Famotidine [Pepcid] 20 mg PO BID-W/MEALS 01/22/24 01/22/24 History Gabapentin [Neurontin] 300 mg PO TID@0600,1400,2000 01/22/24 01/22/24 History Lidocaine 5% Patch [Lidoderm] 1 patch TOPICAL DAILY 01/22/24 01/22/24 History Loratadine [Claritin] 10 mg PO DAILY 01/22/24 01/22/24 History Pyridoxine [Vitamin B-6] 100 mg PO W/LUNCH 01/22/24 01/22/24 History Theralith Xr 1 tab PO QID 01/22/24 01/22/24 History Ubidecarenone [Q-Sorb Co Q-10] 200 mg PO W/LUNCH 01/22/24 01/22/24 History oxyCODONE HCL/ACETAMINOPHEN 1 tab PO Q6H PRN 01/22/24 01/22/24 History [Percocet 5-325 mg] Allergies Allergy/AdvReac Type Severity Reaction Status Date / Time exenatide [From [place]] Allergy Pancreatiti Verified 01/22/24 12:35 s sitagliptin [From Januvia] AdvReac abd Verified 01/22/24 12:35 pain/PANCREATITIS Physical Examination Gen: AOx3, NAD VSS stable at this time Integument: Postop incision on the right side lower lumbar region is well-healing, markos are in good position and condition. There is no erythema, drainage or areas of fluctuance Palpation: Mild tenderness with palpation to the paraspinal region of the lumbar spine ROM: Full range of motion in all major muscle groups of the bilateral upper extremities and lower extremities, no focal deficits Sensory Exam: Senory exam to light touch is intact C5-T1 Senosry exam to light touch is intact L2-S1 Motor: 4/5 strength appreciated in the left lower extremity with hip flexion, knee extension, knee flexion, plantarflexion, dorsiflexion, EHL, FHL 4-/5 strength appreciate the right lower extreme with hip flexion, knee extension 4/5 strength appreciated in the right lower extremity with knee flexion, plantarflexion, dorsiflexion, EHL, FHL Reflexes: 2/4 in all UE and LE Negative clonus bilaterally Special Test: Negative straight leg raise bilaterally Results - Labs Labs: Abnormal Lab Results - Last 24 Hours (Table) 01/22/24 01/22/24 01/23/24 Range/Units 18:04 21:58 05:36 RBC (4.40-5.60) X 10*6/uL Hgb (13.0-17.0) g/dL Hct (39.6-50.0) % MCV (80.0-97.0) FL MCH (27.0-32.0) pg Monocytes # (0.20-1.00) X 10*3/uL Eosinophils # (0.04-0.35) X 10*3/uL Anion Gap (4.00-12.00) mmol/L Glucose (70-110) mg/dL POC Glucose (mg/dL) 193 H 217 H 178 H (70-110) mg/dL 01/23/24 01/23/24 01/23/24 Range/Units 05:45 05:45 11:27 RBC 3.62 L (4.40-5.60) X 10*6/uL Hgb 12.0 L (13.0-17.0) g/dL Hct 35.4 L (39.6-50.0) % MCV 97.8 H (80.0-97.0) FL MCH 33.1 H (27.0-32.0) pg Monocytes # 1.15 H (0.20-1.00) X 10*3/uL Eosinophils # 0.67 H (0.04-0.35) X 10*3/uL Anion Gap 12.90 H (4.00-12.00) mmol/L Glucose 168 H (70-110) mg/dL POC Glucose (mg/dL) 279 H (70-110) mg/dL H & H 01/22/24 01/23/24 Range/Units 06:32 05:45 Hgb 11.9 L 12.0 L (13.0-17.5) gm/dL Hct 34.4 L 35.4 L (39.0-53.0) % Coagulation 01/22/24 Range/Units 06:32 INR 1.1 (<1.2) Result Diagrams: 01/23/24 05:45 01/23/24 05:45 Assessment and Plan Assessment: Generalized weakness Recent L3-4 laminoforaminotomy with lateral discectomy Other medical comorbidities Plan: I was able to discuss the case, this to include both physical exam findings and imaging studies my attending Dr. Reynolds. No emergent orthopedic spine surgical intervention is recommended at this time. Patient's symptoms seem very minor at this time, I feel that this may be medication related. I am decreasing the gabapentin and also decreasing the amount of Flexeril and Percocet he is taking. Patient seems very comfortable on exam and not demonstrating any acute pain. Will hold off on any further imaging studies at this time PT/OT recommendations, recommend use of a walker at all times with ambulation GI DVT prophylaxis per primary medical service Other medical specialties recommendations appreciated Will continue to follow patient during hospital stay Time with Patient: Less than 30
[2024-01-23 16:56] LABS: Glucose,Whole Blood 222 mg/dL (70-110)
[2024-01-23] MEDS: GABAPENTIN 100 MG CAP PO SCH (17:10)
[2024-01-23] MEDS: oxyCODONE-APAP 5-325MG 1 EACH TAB PO PRN (19:46)
[2024-01-23 20:49] LABS: Glucose,Whole Blood 282 mg/dL (70-110)
[2024-01-23] MEDS: CYCLOBENZAPRINE 5 MG TAB PO SCH (22:14)
--- NOTE | 2024-01-24 00:07 | P.PN ---
Subjective Progress Note Date: 01/23/24 HISTORY OF PRESENT ILLNESS: 68-year-old with active medical history of type 2 diabetes has been on multiple medication manage blood sugar finally become slightly better control, history of CVA affecting the right basal ganglia during this year the patient had episode of left hemiparesis and left arm ataxia who also had severe lower back pain with chronic spinal stenosis with severe radiculopathy and herniated disc in the L3- L4 was supposed to have surgery early was delayed because of his stroke and recent hospitalization. Finally had his surgery with Dr. Reynolds in Jan for L3-4 laminoforaminotomy along with lateral discectomy and micro discectomy . 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 He developed last 24 hours appeared to admission to have significant altered me ntal status with worsening confusion and respond reaction had fall landed on both knees with no head injury could not ambulate and needed more than 1 person management assistant walk to the bathroom and his balance become quite bit off significantly. Apparently he started recently on oxycodone along with trae pentin medication were titrated fast because patient to be quite symptomatic. 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 Chest x-ray showed borderline heart size with some strandy basilar atelectasis no consolidation and picture of DISH in the lower thoracic spine area. Laboratory value shows normal CBC, chemistry with creatinine of 0.8 blood sugar is mildly elevated with only 1 abnormal. He was diagnosed with severe weakness and fall with worsening symptoms since his surgery also mild hyperglycemia with recent history of stroke with abnormal balance and gait since. Patient is not safe was admitted to the hospital be seen neurology and his Ortho/spine surgeon. REVIEW OF SYSTEMS: CONSTITUTIONAL: Well-developed no acute respiratory distress. EYES: No icterus sclerae, no conjunctivitis. EARS, NOSE, MOUTH, THROAT, and FACE: No sore throat, lymphadenopathy, carotid bruits or deformity. RESPIRATORY: No SOB cough or wheezes. CARDIOVASCULAR: No CP, Palpitation, PND, Orthopnea, or angina. No arrhythmia no A-fib was found. GASTROINTESTINAL: No Abd pain, Nausea or vomiting, no Diarrhea or constipation, No GI Bleed, no distention or masses. GENITOURINARY: Negative for Hematuria or UTI, no kidney stones. INTEGUMENT/BREAST: Generalized arthralgia and weakness of the lower extremity. Back: His incision lower back looks good with no sign of infection. HEMATOLOGIC/LYMPHATIC: Negative for bleed or purpura. MUSCULOSKELTAL: Negative for Myalgia or arthralgia. NEURLOGICAL: Still have significant slurred speech and droopy face with s ignificant left-sided weakness. BEHAVIORAL/PSYCH: Negative. ENDOCRINE: Negative. PHYSICAL EXAMINATION: General Appearance: Alert, cooperative, no distress, appears stated age. Neck HEENT: Supple, no lymphadenopathy, no thyroid enlargement, no carotid bruits. Lungs: Clear to auscultation without crackles or wheezes no rhonchi, no deformity. Chest Wall: Chest wall normal expansion with deep inspiration no tenderness and no deformity was found on exam, no costochondral pain or discomfort. Heart: Regular rate and rhythm, S1, S2 normal, no murmur, rub or gallop. Back: Symmetric, no curvature, ROM normal, no CVA tenderness. Abdomen: Soft, non-tender, bowel sounds active all four quadrants, no masses, no organomegaly. Extremities: Extremities normal, atraumatic, no cyanosis or edema. Back: Incision in the lower back area looks fine with no sign of infection bleed dehiscing still have 6 markos with no drainage. Pulses: 2+ and symmetric. Skin: Skin color, texture, tugor normal, no rashes or lesions. Neurologic: Alert oriented x3 cranial nerves II through XII intact, positive significant weakness in the left side compared to the right side is getting stronger on a slight bit abnormal balance and gait. Slight decrease sensation lower extremity as well from neuropathy. ASSESSMENT AND PLAN: _Altered mental status: Most likely side effect of medications combination between narcotic and gabapentin, patient to be watched carefully allowed medication to wash off and then we will start him back on a smaller dose initially and titrate dose higher if able to tolerate it. _Multiple fall with injury and bruised both knees with no fracture: Need help with physical therapy. _Recent L3/L4 laminectomy and discectomy: Still for surgery probably still have slight inflammation around the surgical site will consult his orthopedic surgeon. _Recent history of stroke was on Brilinta along with aspirin original timeframe for Brilinta was more than 90 days, resume medication at this point and he will be seen neurology. _Type 2 diabetes: Remain on aggressive management with insulin NovoLog mostly, Levemir at 10 units daily still on Prandin 2 mg 4 times a day and pioglitazone 45 mg a day and was on GLP-1 product. 2 his admission which is Mounjaro 7.5 mg weekly can be resumed afterward. Resume his entire regimen as before. _Hypertension: Systolic blood pressure remain on the low 100 around 105-120 diastolic only running around 70. Blood pressure still better controlled this point remain on clonidine point 1 mg nightly, hydrochlorothiazide 50 mg daily, lisinopril 30 mg twice a day can benefit from calcium channel mal if needed. _Hyperlipidemia: Switch atorvastatin to 80 mg daily. _Chronic lower back pain for surgery with laminectomy and disctomy. Was off pain medication yesterday we will probably start him back on smaller dose of hydrocodone. _Chronic neuropathy: Switch gabapentin to 300 mg 3 times a day. _OSA: not on C PAP shouhd go for testing again and need CPAP or inspire. _Debility: Post stroke patient will be going for inpatient rehab. Our outpatient physical therapy. _GI prophylaxis: Will be on Pepcid 20 mg daily. _DVT prophylaxis: Early mobilization and knee-high JACINTA hose. CODE STATUS: Full code. Admit patient to the inpatient service for more than 2 night stay. Objective - Vital Signs Vital signs: Vital Signs Temp 97.7 F 01/23/24 01:17 Pulse 83 01/23/24 01:17 Resp 19 01/23/24 01:17 BP 111/54 01/23/24 01:17 Pulse Ox 97 01/23/24 01:17 FiO2 Intake & Output 01/22/24 01/23/24 01/23/24 18:59 06:59 18:59 Output Total 400 Balance -400 Weight 88.451 kg Output: Urine 400 Other: Voiding Method Urinal # Bowel Movements 1 - Labs CBC & Chem 7: 01/23/24 05:45 01/23/24 05:45 Labs: Abnormal Lab Results - Last 24 Hours (Table) 01/22/24 01/22/24 01/22/24 Range/Units 08:21 10:42 18:04 POC Glucose (mg/dL) 171 H 193 H (70-110) mg/dL Ur Oxycodone Screen Detected H (NotDetected) U Tricyclic Antidepress Detected H (NotDetected) 01/22/24 01/23/24 Range/Units 21:58 05:36 POC Glucose (mg/dL) 217 H 178 H (70-110) mg/dL Ur Oxycodone Screen (NotDetected) U Tricyclic Antidepress (NotDetected)
[2024-01-24 06:12] LABS: Glucose,Whole Blood 143 mg/dL (70-110)
[2024-01-24] MEDS ORDERED: NON FORMULARY DRUG (Turmeric Root Extract [Turmeric] 500 MG Capsule) PO SCH (07:30)
[2024-01-24] MEDS: INSULIN DETEMIR (LEVEMIR) 100 UNIT/ML SYR SQ SCH (08:01)
[2024-01-24] MEDS: REPAGLINIDE 1 MG TAB PO SCH (08:01)
[2024-01-24 11:43] LABS: Glucose,Whole Blood 188 mg/dL (70-110)
[2024-01-24] MEDS ORDERED: UBIDECARENONE 200 MG PO SCH (12:30)
--- NOTE | 2024-01-24 13:09 | P.PN ---
Subjective Progress Note Date: 01/24/24 Principal diagnosis: generalized weakness, recent lumbar surgery patient was evaluated today at bedside, he was in the restroom with his cleaning up. Discussed with nursing prior to examining the patient, she states that he seems a lot better today with his mentation. Apparently patient was evaluated by the neurology team yesterday, and MRI of the brain has been order ed. Orthopedically, his lower extremities seems stable, there is no worsening weakness to the extremities. Physical therapy notes were reviewed from yesterday, he did require some assistance with ambulating with the use of the walker. Currently denies any loss of bowel or bladder function, no numbness or tingling to the perineal or genital region. Objective - Vital Signs Vital signs: Vital Signs Temp 98.4 F 01/24/24 07:40 Pulse 96 01/24/24 07:40 Resp 15 01/24/24 07:40 BP 109/68 01/24/24 07:40 Pulse Ox 94 L 01/24/24 07:40 FiO2 Intake & Output 01/23/24 01/24/24 01/24/24 18:59 06:59 18:59 Other: # Voids 3 1 - Exam Gen: AOx3, NAD VSS stable at this time Integument: Postop incision on the right side lower lumbar region is well-healing, markos are in good position and condition. There is no erythema, drainage or areas of fluctuance Palpation: Mild tenderness with palpation to the paraspinal region of the lumbar spine ROM: Full range of motion in all major muscle groups of the bilateral upper extremities and lower extremities, no focal deficits Sensory Exam: Senory exam to light touch is intact C5-T1 Senosry exam to light touch is intact L2-S1 Motor: 4/5 strength appreciated in the left lower extremity with hip flexion, knee e xtension, knee flexion, plantarflexion, dorsiflexion, EHL, FHL 4-/5 strength appreciate the right lower extreme with hip flexion, knee extension 4/5 strength appreciated in the right lower extremity with knee flexion, plantarflexion, dorsiflexion, EHL, FHL Reflexes: 2/4 in all UE and LE Negative clonus bilaterally Special Test: Negative straight leg raise bilaterally - Labs CBC & Chem 7: 01/23/24 05:45 01/23/24 05:45 Labs: Abnormal Lab Results - Last 24 Hours (Table) 01/23/24 01/23/24 01/24/24 Range/Units 16:54 20:48 06:11 POC Glucose (mg/dL) 222 H 282 H 143 H (70-110) mg/dL 01/24/24 Range/Units 11:42 POC Glucose (mg/dL) 188 H (70-110) mg/dL Assessment and Plan Assessment: Generalized weakness Recent L3-4 laminoforaminotomy with lateral discectomy Other medical comorbidities Plan: Patient does seem better today, we did decrease the gabapentin to 200 mg, the Flexeril was also made as needed instead of scheduled. Continue to monitor narcotic use for pain. PT/OT recommendations, recommend use of a walker at all times with ambulation GI DVT prophylaxis per primary medical service Other medical specialties recommendations appreciated Will continue to follow patient during hospital stay Time with Patient: Less than 30
--- NOTE | 2024-01-24 14:43 | CDI ---
Documentation Clarification Form Date: 01/24/2024 02:17:00 PM From: Leah Izaguirre RN, CCDS Phone: [phone] Admit Date: 01/22/2024 11:30:00 AM Patient Name: Javon Jackman Visit Number: [id number] Discharge Date: ATTENTION: The Clinical Documentation Specialists (CDI) and [facility] Coding Staff appreciate your assistance in clarifying documentation. Please respond to the clarification below the line at the bottom and electronically sign. The CDI & [facility] Coding staff will review the response and follow-up if needed. Please note: Queries are made part of the Legal Health Record. If you have any questions, please contact the author of this message via ITS. Doctor/Provider: Lev Kuhn Your patient has the documented symptom of Altered Mental Status in ED, H/P and progress note on 01/23/24. Additional clarification regarding the etiology/cause of this symptom is requested. History/Risk Factors: CVA/TIA, Diabetes Mellitus, Hyperlipidemia, Hypertension, Clinical Indicators: 68-year-old male with recent lumbar surgery presents the ED with altered mental status. He was started on gabapentin and oxycodone after surgery. Yesterday the patient was having some confused speech but the states that sometimes this is normal for him. Last night the confusion got worse. Altered mental status: Most likely side effect of medications combination between narcotic and gabapentin, patient to be watched carefully allowed medication to wash off and then we will start him back on a smaller dose and titrate. VS: 128/72 100 15 98.2 Labs: WBC 8.3 HGB 11.9 NA 134, CL 94 CO2 20, BUN 21 CR 0.84 UDS + Oxycodone antidepressant CT Brain: chronic small vessel ischemic disease; old lacunar infarct in right basal ganglia Treatment: Monitor Neuro checks per protocol PT/OT/Social Service evaluation Please clarify the etiology of the symptom of Altered Mental Status: [ XX ] Toxic encephalopathy due to side effect of medications Oxycodone and Gabapentin [ ] Other condition (please specify) [ ] Unable to determine (Template Last Revised: June 2020) MTDD
--- NOTE | 2024-01-24 15:37 | P.CNNES ---
History of Present Illness Consult date: 01/23/24 Requesting physician: Lev Kuhn Reason for Consult: post CVA and recent Back surgery History of Present Illness: Patient is a 68-year-old right-handed male known to me from previous admission related to his stroke, came to the hospital by ambulance yesterday at 6:16 AM. Patient states that he underwent lumbar spinal surgery last Tuesday on 01/16/2024. He has been using walker for gait assistance. He was doing quite well on using his walker, making good steps. On Tuesday night, 2 days prior to arrival, at night he went to the bathroom. When he was coming back, his legs would not work. He fell going back to his bed and he could not get up., He noticed both legs were weak, but left more than right. He thought that he was just tired or drowsy and did not seek medical attention. On Tuesday, he slept all day. Yesterday on Tuesday feather baler, he again went to the bathroom and when coming back, feet were not coordinated and he again fell getting out of the bathroom. He also noticed some slurred speech but there was no facial droop. No visual disturbance or symptoms with upper extremities. This time he decided to call the ambulance and was brought to the hospital. As per EMS flowsheet, when they arrived, patient was laying on the ground in the bathroom. Patient is alert and orient x 4, with GCS of 15, does not appear confused during regular conversation. Patient's mentioned that patient had back surgery about a week ago. He was recovering well until a few days ago and then he began falling. states yesterday she noticed an increase in confusion as well. Patient mentioned that his legs gave tonight while he was walking but he was able to lower himself to the ground. No injury, no loss of consciousness. Patient has been prescribed narcotic pain medication per and she just gave him another dose. Patient's vitals at the scene was blood pressure 138/73, pulse rate 103, respiration 16 saturation 96%, blood sugar 120. Blood test shows normal WBC hemoglobin 12.0, platelets are 281. Basic metabolic panel normal. Calcium normal. Urine drug screen positive for tricyclic and oxycodone. UA negative. CRP 11.9. Home medications include allopurinol, magnesium, insulin, Actos, Prandin, fenofibrate, HCTZ, Mounjaro, B12, Brilinta 90 mg twice daily, aspirin 81 mg, Protonix, lactulose, Pepcid, Flexeril 5 mg 3 times daily as needed, Lipitor 80 mg, gabapentin, B6. Patient states that he stopped taking aspirin and Brilinta for about 1 week prior to the surgery and he did not continue these medications for couple days after the surgery. Patient states that he still feels a little bit off balance as of today. Speech is cleared up. Previous records from October 2023 admission: MRI of the brain revealed two small areas of acute stroke involving the right basal ganglia/right parietal deep white matter and left posterior parietal white matter. No mass effect or midline shift. Degenerative changes with evidence of remote microvascular ischemia. I personally reviewed MRI agree with the findings. 2-D echo revealed technically difficult study. LV size and systolic function are normal. EF is estimated at 60%. No obvious regional wall motion abnormalities. Left and right atrial size are normal. No valvular abnormalities. 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 No dissection, significant stenosis or occlusion in either carotid artery. CTA of the head showed patent intracranial circulation. Patient has bilateral ischemic stroke. Appreciate cardiology input. Patient undergoing DOUG and loop recorder implantation in the morning. Fasting a.m. lipid panel cholesterol 136, LDL 70, HDL 39, triglycerides 128. Patient was on Lipitor 40 mg daily. Will increase to 80 mg daily. Hemoglobin A1c 7.0, diabetes well-controlled B12 1648, RBC folate 479. Patient's mentions that he was not taking vitamins B6, but was taking vitamin B12 1000 mcg daily. DOUG performed 10/10/2023 revealed: 1. Intact interatrial septum with no evidence of shunt 2. Intact left atrial appendage with no evidence of thrombus 3. No evidence of cardiac source of embolization 4. Normal biventricular dimension and systolic function 5. No significant valvular abnormalities Review of Systems All pertinent positives and negatives mentioned in HPI. Otherwise unremarkable. Denies any chest pain shortness of breath. Denies any nausea vomiting diarrhea, dizziness. Denies headache. Past Medical History Past Medical History: CVA/TIA, Diabetes Mellitus, Hyperlipidemia, Hypertension Additional Past Medical History / Comment(s): HX RENAL CALCULUS, Type II DM, ruptured lumbar disc causing right leg weakness, CVA X2 on 10/01/23 - no residual effects. History of Any Multi-Drug Resistant Organisms: None Reported Past Surgical History: Hernia Repair, Orthopedic Surgery Additional Past Surgical History / Comment(s): Numerous lithotripsies, bilateral inguinal hernia repair, colonoscopies, loop monitor placed. Past Anesthesia/Blood Transfusion Reactions: Postoperative Nausea & Vomiting (PONV) Additional Past Anesthesia/Blood Transfusion Reaction / Comment(s): STATES SEVERE PONV even with "twilight sedation." Past Psychological History: No Psychological Hx Reported Smoking Status: Never smoker Past Alcohol Use History: Occasional Past Drug Use History: None Reported - Past Family History Brother(s) Family Medical History: Coronary Artery Disease (CAD) Additional Family Medical History / Comment(s): Cardiac stent. Sister(s) Family Medical History: Coronary Artery Disease (CAD) Additional Family Medical History / Comment(s): Cardiac stent. Father Additional Family Medical History / Comment(s): of heart problem age 50. Mother Family Medical History: CVA/TIA, Myocardial Infarction (CA) Additional Family Medical History / Comment(s): of brain bleed age 67 - CA w/ TPA. Medications and Allergies Home Medications Medication Instructions Recorded Confirmed Type Magnesium Oxide [Mag-Ox] 400 mg PO QID 09/05/15 01/22/24 History allopurinoL [Zyloprim] 300 mg PO HS 09/05/15 01/22/24 History Cinnamon Bark [Cinnamon] 500 mg PO QID 03/19/18 01/22/24 History Insulin Degludec [Tresiba 20 unit SQ AC-BID 03/19/18 01/22/24 History Flextouch U-100 Pen] Pioglitazone [Actos] 45 mg PO DAILY 03/19/18 01/22/24 History Turmeric Root Extract [Turmeric] 500 mg PO BID-W/MEALS 03/19/18 01/22/24 History Fenofibrate 54 mg PO DAILY 06/01/22 01/22/24 History Insulin Aspart [NovoLOG] See Protocol SQ ACHS PRN 06/01/22 01/22/24 History Repaglinide [Prandin] 2 mg PO QID 06/01/22 01/22/24 History Cholecalciferol (Vitamin D3) 50 mcg PO W/LUNCH 10/05/23 01/22/24 History [Vitamin D3 (50 Mcg = 2000 Iu)] Tirzepatide [Mounjaro] 7.5 mg SQ PEARSON 10/05/23 01/22/24 History hydroCHLOROthiazide [Hydrodiuril] 50 mg PO W/SUPPER 10/05/23 01/22/24 History Cyanocobalamin (Vitamin B-12) 1 tablet PO W/LUNCH 10/07/23 01/22/24 History [Vitamin B-12] Aspirin 81 mg PO DAILY #30 tab 10/11/23 01/22/24 Rx Fluticasone Nasal [place] [Flonase 1 spray EA NOSTRIL DAILY #1 ml 10/11/23 01/22/24 Rx Nasal [place]ie] Pantoprazole [Protonix] 40 mg PO AC-BRKFST #30 tab 10/11/23 01/22/24 Rx Ticagrelor [Brilinta] 90 mg PO BID #60 tab 10/11/23 01/22/24 Rx lisinopriL [Zestril] 20 mg PO BID #60 tab 10/11/23 01/22/24 Rx Lactulose [Cephulac] 10 gm PO BID PRN 11/30/23 01/22/24 History Sennosides [Ex-Lax Chew] 15 - 30 mg PO HS 11/30/23 01/22/24 History Sennosides [Senokot] 8.6 mg PO QID 11/30/23 01/22/24 History Atorvastatin [Lipitor] 80 mg PO HS 01/22/24 01/22/24 History Cyclobenzaprine [Flexeril] 5 mg PO TID PRN 01/22/24 01/22/24 History Famotidine [Pepcid] 20 mg PO BID-W/MEALS 01/22/24 01/22/24 History Gabapentin [Neurontin] 300 mg PO TID@0600,1400,2000 01/22/24 01/22/24 History Lidocaine 5% Patch [Lidoderm] 1 patch TOPICAL DAILY 01/22/24 01/22/24 History Loratadine [Claritin] 10 mg PO DAILY 01/22/24 01/22/24 History Pyridoxine [Vitamin B-6] 100 mg PO W/LUNCH 01/22/24 01/22/24 History Theralith Xr 1 tab PO QID 01/22/24 01/22/24 History Ubidecarenone [Q-Sorb Co Q-10] 200 mg PO W/LUNCH 01/22/24 01/22/24 History oxyCODONE HCL/ACETAMINOPHEN 1 tab PO Q6H PRN 01/22/24 01/22/24 History [Percocet 5-325 mg] Allergies Allergy/AdvReac Type Severity Reaction Status Date / Time exenatide [From Byetta] Allergy Pancreatiti Verified 01/22/24 12:35 s sitagliptin [From Januvia] AdvReac abd Verified 01/22/24 12:35 pain/PANCREATITIS Physical Examination - Vital Signs Vital Signs: Vital Signs Temp Pulse Resp BP Pulse Ox 01/23/24 14:27 97.4 F L 79 17 130/75 99 01/23/24 07:34 97.4 F L 87 17 127/70 97 01/23/24 01:17 97.7 F 83 19 111/54 97 Intake and Output 01/23/24 01/23/24 01/23/24 06:59 14:59 22:59 Output Total 400 Balance -400 Output: Urine 400 Other: # Voids 3 # Bowel Movements 1 Patient is an elderly male, in no acute distress. Patient is alert awake oriented to time place and person. Speech appears slightly dysarthric and language functions are normal. Patient can name and repeat very well. Attention, concentration and fund of knowledge is adequate. On cranial nerve examination, pupils are equal, round and reacting to light, visual pulido are full on confrontation, with no neglect on double simultaneous stimulation. Extraocular muscles are intact with no nystagmus. Face is symmetric, tongue protrudes to the midline. Palatal elevation and sensation normal, hearing and shoulder shrug normal, facial sensation normal. On muscle strength testing, there is no pronator drift and the strength is normal in arms and legs distally and proximally. Deep tendon reflexes are (right/left) biceps 1/1, brachioradialis 1/1, knees 3/2, plantars down on the right, upgoing on the left. Sensory to touch is equal with no neglect on double simultaneous stimulation. Cerebellar function showed shakiness only in the left upper extremity for [id number] testing, but not the right. No ataxia for [id number] testing on either side. Tone and bulk of muscles normal. Gait deferred.. On general examination, there is no carotid bruit or murmur, S1-S2 audible. Chest is clear on consultation. Abdomen is soft nontender. No organomegaly, bowel sounds present. Peripheral pulses are present. No peripheral edema. Results - Laboratory Findings CBC and BMP: 01/23/24 05:45 01/23/24 05:45 Abnormal Lab Findings: Abnormal Labs 01/22/24 01/22/24 01/22/24 06:32 06:32 08:21 RBC 3.53 L Hgb 11.9 L Hct 34.4 L MCV MCH Monocytes # Eosinophils # Sodium 134 L Chloride 94 L Carbon Dioxide 20 L Anion Gap BUN 21 H Glucose 152 H POC Glucose (mg/dL) 171 H C-Reactive Protein 11.9 H Total Protein 6.0 L Ur Oxycodone Screen U Tricyclic Antidepress 01/22/24 01/22/24 01/22/24 10:42 18:04 21:58 RBC Hgb Hct MCV MCH Monocytes # Eosinophils # Sodium Chloride Carbon Dioxide Anion Gap BUN Glucose POC Glucose (mg/dL) 193 H 217 H C-Reactive Protein Total Protein Ur Oxycodone Screen Detected H U Tricyclic Antidepress Detected H 01/23/24 01/23/24 01/23/24 05:36 05:45 05:45 RBC 3.62 L Hgb 12.0 L Hct 35.4 L MCV 97.8 H MCH 33.1 H Monocytes # 1.15 H Eosinophils # 0.67 H Sodium Chloride Carbon Dioxide Anion Gap 12.90 H BUN Glucose 168 H POC Glucose (mg/dL) 178 H C-Reactive Protein Total Protein Ur Oxycodone Screen U Tricyclic Antidepress 01/23/24 01/23/24 01/23/24 11:27 16:54 20:48 RBC Hgb Hct MCV MCH Monocytes # Eosinophils # Sodium Chloride Carbon Dioxide Anion Gap BUN Glucose POC Glucose (mg/dL) 279 H 222 H 282 H C-Reactive Protein Total Protein Ur Oxycodone Screen U Tricyclic Antidepress Assessment and Plan Assessment: * Possible stroke/TIA manifesting with leg weakness, dysarthria, and difficulty with gait. * History of CVA on 10/04/2023, manifesting with left hemiparesis, significantly improved. * Hypertension * Diabetes * Status post L3-4 laminoforaminotomy with far lateral discectomy and microdiscectomy, on 01/16/2024. Plan: * MRI of the brain evaluate for any acute stroke. * Patient has been resumed on aspirin 81 mg, Brilinta 90 mg twice daily. Also on Lipitor 80 mg daily. * PT OT, evaluate gait. * Hemoglobin A1c * Neurology will follow. Thank you for the consult.
[2024-01-24 16:15] LABS: Glucose,Whole Blood 237 mg/dL (70-110)
[2024-01-24 21:03] LABS: Glucose,Whole Blood 225 mg/dL (70-110)
[2024-01-24] MEDS: CYCLOBENZAPRINE 5 MG TAB PO PRN (22:21)
--- NOTE | 2024-01-25 06:18 | P.PN ---
Subjective Progress Note Date: 01/24/24 HISTORY OF PRESENT ILLNESS: 68-year-old with active medical history of type 2 diabetes has been on multiple medication manage blood sugar finally become slightly better control, history of CVA affecting the right basal ganglia during this year the patient had episode of left hemiparesis and left arm ataxia who also had severe lower back pain with chronic spinal stenosis with severe radiculopathy and herniated disc in the L3- L4 was supposed to have surgery early was delayed because of his stroke and recent hospitalization. Finally had his surgery with Dr. Reynolds in Jan for L3-4 laminoforaminotomy along with lateral discectomy and micro discectomy . 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 He developed last 24 hours appeared to admission to have significant altered me ntal status with worsening confusion and respond reaction had fall landed on both knees with no head injury could not ambulate and needed more than 1 person assistant at surgery walk to the bathroom and his balance become quite bit off significantly. Apparently he started recently on oxycodone along with trae pentin medication were titrated fast because patient to be quite symptomatic. 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 Chest x-ray showed borderline heart size with some strandy basilar atelectasis no consolidation and picture of DISH in the lower thoracic spine area. Laboratory value shows normal CBC, chemistry with creatinine of 0.8 blood sugar is mildly elevated with only 1 abnormal. He was diagnosed with severe weakness and fall with worsening symptoms since his surgery also mild hyperglycemia with recent history of stroke with abnormal balance and gait since. Patient is not safe was admitted to the hospital be seen neurology and his Ortho/spine surgeon. 01/24/2024: He still quite bit debilitated at this point is mobility is decreased still have quite good weakness in the right side with worsening sciatica and radiculopathy symptoms. Was evaluated by neurology yesterday and the left more remark on? Of possible TIA or stroke manifestation with leg weakness dysarthria difficulty of gait and ambulation. The patient had a stroke with left hemiparesis back in October 03 which is this is really not the same at this point he had his L3-4 laminoforaminotomy with lateral discectomy and microdiscectomy which most likely the weakness is from his surgical site mostly. Again louisa fletcherogy want him to have an MRI of the brain in the meanwhile to continue aspirin along with Brilinta and the higher dose of atorvastatin and we will reevaluate his A1c which has been doing much better. Sadly his MRI is done shortly after his surgery not quite sure how this is going to be more suitable and if it is claritza create any problem with his spine surgery at this point or not. Clinically patient is much better than the day before so we will carry on physical therapy while doing this workup [id number]. REVIEW OF SYSTEMS: CONSTITUTIONAL: Well-developed no acute respiratory distress. EYES: No icterus sclerae, no conjunctivitis. EARS, NOSE, MOUTH, THROAT, and FACE: No sore throat, lymphadenopathy, carotid bruits or deformity. RESPIRATORY: No SOB cough or wheezes. CARDIOVASCULAR: No CP, Palpitation, PND, Orthopnea, or angina. No arrhythmia no A-fib was found. GASTROINTESTINAL: No Abd pain, Nausea or vomiting, no Diarrhea or constipation, No GI Bleed, no distention or masses. GENITOURINARY: Negative for Hematuria or UTI, no kidney stones. INTEGUMENT/BREAST: Generalized arthralgia and weakness of the lower extremity. Back: His incision lower back looks good with no sign of infection. HEMATOLOGIC/LYMPHATIC: Negative for bleed or purpura. MUSCULOSKELTAL: Negative for Myalgia or arthralgia. NEURLOGICAL: Still have significant slurred speech and droopy face with significant left-sided weakness. BEHAVIORAL/PSYCH: Negative. ENDOCRINE: Negative. PHYSICAL EXAMINATION: General Appearance: Alert, cooperative, no distress, appears stated age. Neck HEENT: Supple, no lymphadenopathy, no thyroid enlargement, no carotid bruits. Lungs: Clear to auscultation without crackles or wheezes no rhonchi, no defo rmity. Chest Wall: Chest wall normal expansion with deep inspiration no tenderness and no deformity was found on exam, no costochondral pain or discomfort. Heart: Regular rate and rhythm, S1, S2 normal, no murmur, rub or gallop. Back: Symmetric, no curvature, ROM normal, no CVA tenderness. Abdomen: Soft, non-tender, bowel sounds active all four quadrants, no masses, no organomegaly. Extremities: Extremities normal, atraumatic, no cyanosis or edema. Back: Incision in the lower back area looks fine with no sign of infection bleed dehiscing still have 6 markos with no drainage. Pulses: 2+ and symmetric. Skin: Skin color, texture, tugor normal, no rashes or lesions. Neurologic: Alert oriented x3 cranial nerves II through XII intact, positive significant weakness in the left side compared to the right side is getting stronger on a slight bit abnormal balance and gait. Slight decrease sensation lower extremity as well from neuropathy. ASSESSMENT AND PLAN: _Altered mental status: Most likely side effect of medications combination between narcotic and gabapentin, patient to be watched carefully allowed medication to wash off and then we will start him back on a smaller dose initially and titrate dose higher if able to tolerate it. _Possible CVA versus TIA neurology want further workup including MRI of the brain at this point as for his transesophageal echocardiogram and carotid testing were done recently patient is back on antiplatelet agent with Brilinta 90 mg twice a day along with aspirin and continue higher dose of atorvastatin 80 mg daily. _Multiple fall with injury and bruised both knees with no fracture: Need help with physical therapy. _Recent L3/L4 laminectomy and discectomy: Still for surgery probably still have slight inflammation around the surgical site will consult his orthopedic surgeon. _Recent history of stroke was on Brilinta along with aspirin original timeframe for Brilinta was more than 90 days, resume medication at this point and he will be seen neurology. _Type 2 diabetes: Remain on aggressive management with insulin NovoLog mostly, Levemir at 10 units daily still on Prandin 2 mg 4 times a day and pioglitazone 45 mg a day and was on GLP-1 product. 2 his admission which is Mounjaro 7.5 mg weekly can be resumed afterward. Resume his entire regimen as before. He is doing much better with his medication and manage #2 request A1c for better review on his longer-term diabetic management. _Hypertension: Systolic blood pressure remain on the low 100 around 105-120 diastolic only running around 70. Blood pressure still better controlled this point remain on clonidine point 1 mg nightly, hydrochlorothiazide 50 mg daily, lisinopril 30 mg twice a day can benefit from calcium channel mal if needed. _Hyperlipidemia: Switch atorvastatin to 80 mg daily. _Chronic lower back pain for surgery with laminectomy and discectomy. Was off pain medication yesterday we will probably start him back on smaller dose of hydrocodone. _Chronic neuropathy: Switch gabapentin to 300 mg 3 times a day. _OSA: not on C PAP shouhd go for testing again and need CPAP or inspire. _Debility: Post stroke patient will be going for inpatient rehab. Our outpatient physical therapy. _GI prophylaxis: Will be on Pepcid 20 mg daily. Discussion: Patient was admitted with altered mental status along with worsening weakness on the right side not clear whether this is new stroke or the effect of the mild swelling and inflammation from the site is done the L3-4 laminectomy and discectomy on January 15 which I believe that is the case. Objective - Vital Signs Vital signs: Vital Signs Temp 97.8 F 01/24/24 01:23 Pulse 83 01/24/24 01:23 Resp 16 01/24/24 01:23 BP 99/63 01/24/24 01:23 Pulse Ox 94 L 01/24/24 01:23 FiO2 Intake & Output 01/23/24 01/23/24 01/24/24 06:59 18:59 06:59 Output Total 400 Balance -400 Weight 88.451 kg Output: Urine 400 Other: Voiding Method Urinal # Voids 3 # Bowel Movements 1 - Labs CBC & Chem 7: 01/23/24 05:45 01/23/24 05:45 Labs: Abnormal Lab Results - Last 24 Hours (Table) 01/23/24 01/23/24 01/23/24 Range/Units 05:45 05:45 11:27 RBC 3.62 L (4.40-5.60) X 10*6/uL Hgb 12.0 L (13.0-17.0) g/dL Hct 35.4 L (39.6-50.0) % MCV 97.8 H (80.0-97.0) FL MCH 33.1 H (27.0-32.0) pg Monocytes # 1.15 H (0.20-1.00) X 10*3/uL Eosinophils # 0.67 H (0.04-0.35) X 10*3/uL Anion Gap 12.90 H (4.00-12.00) mmol/L Glucose 168 H (70-110) mg/dL POC Glucose (mg/dL) 279 H (70-110) mg/dL 01/23/24 01/23/24 Range/Units 16:54 20:48 RBC (4.40-5.60) X 10*6/uL Hgb (13.0-17.0) g/dL Hct (39.6-50.0) % MCV (80.0-97.0) FL MCH (27.0-32.0) pg Monocytes # (0.20-1.00) X 10*3/uL Eosinophils # (0.04-0.35) X 10*3/uL Anion Gap (4.00-12.00) mmol/L Glucose (70-110) mg/dL POC Glucose (mg/dL) 222 H 282 H (70-110) mg/dL
[2024-01-25 06:28] LABS: Glucose,Whole Blood 133 mg/dL (70-110)
--- NOTE | 2024-01-25 08:36 | P.PN ---
Subjective Progress Note Date: 01/25/24 HISTORY OF PRESENT ILLNESS: 68-year-old with active medical history of type 2 diabetes has been on multiple medication manage blood sugar finally become slightly better control, history of CVA affecting the right basal ganglia during this year the patient had episode of left hemiparesis and left arm ataxia who also had severe lower back pain with chronic spinal stenosis with severe radiculopathy and herniated disc in the L3- L4 was supposed to have surgery early was delayed because of his stroke and recent hospitalization. Finally had his surgery with Dr. Reynolds in Jan for L3-4 laminoforaminotomy along with lateral discectomy and micro discectomy . 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 He developed last 24 hours appeared to admission to have significant altered me ntal status with worsening confusion and respond reaction had fall landed on both knees with no head injury could not ambulate and needed more than 1 person assistant branch operations manager walk to the bathroom and his balance become quite bit off significantly. Apparently he started recently on oxycodone along with trae pentin medication were titrated fast because patient to be quite symptomatic. 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 Chest x-ray showed borderline heart size with some strandy basilar atelectasis no consolidation and picture of DISH in the lower thoracic spine area. Laboratory value shows normal CBC, chemistry with creatinine of 0.8 blood sugar is mildly elevated with only 1 abnormal. He was diagnosed with severe weakness and fall with worsening symptoms since his surgery also mild hyperglycemia with recent history of stroke with abnormal balance and gait since. Patient is not safe was admitted to the hospital be seen neurology and his Ortho/spine surgeon. 01/24/2024: He still quite bit debilitated at this point is mobility is decreased still have quite good weakness in the right side with worsening sciatica and radiculopathy symptoms. Was evaluated by neurology yesterday and the left more remark on? Of possible TIA or stroke manifestation with leg weakness dysarthria difficulty of gait and ambulation. The patient had a stroke with left hemiparesis back in October 03 which is this is really not the same at this point he had his L3-4 laminoforaminotomy with lateral discectomy and microdiscectomy which most likely the weakness is from his surgical site mostly. Again louisa fletcherogy want him to have an MRI of the brain in the meanwhile to continue aspirin along with Brilinta and the higher dose of atorvastatin and we will reevaluate his A1c which has been doing much better. Sadly his MRI is done shortly after his surgery not quite sure how this is going to be more suitable and if it is claritza create any problem with his spine surgery at this point or not. Clinically patient is much better than the day before so we will carry on physical therapy while doing this workup [id number]. 01/25/2024: Patient is doing much better today sitting in the chair his pain is under better control, still have slight weakness in the right leg but not the arm, the surgical site looking much better he is doing very well with physical therapy. Neurology had ordered an MRI of the brain which will be done this morning if no change or abnormality hopefully patient be able to go to [facility] today for short-term rehab and physical therapy. Pain is well-controlled on oxycodone 3 times a day still doing Flexeril and gabapentin without adjustment on his medication mental status is much better compared to his admission date. REVIEW OF SYSTEMS: CONSTITUTIONAL: Well-developed no acute respiratory distress. EYES: No icterus sclerae, no conjunctivitis. EARS, NOSE, MOUTH, THROAT, and FACE: No sore throat, lymphadenopathy, carotid bruits or deformity. RESPIRATORY: No SOB cough or wheezes. CARDIOVASCULAR: No CP, Palpitation, PND, Orthopnea, or angina. No arrhythmia no A-fib was found. GASTROINTESTINAL: No Abd pain, Nausea or vomiting, no Diarrhea or constipation, No GI Bleed, no distention or masses. GENITOURINARY: Negative for Hematuria or UTI, no kidney stones. INTEGUMENT/BREAST: Generalized arthralgia and weakness of the lower extremity. Back: His incision lower back looks good with no sign of infection. HEMATOLOGIC/LYMPHATIC: Negative for bleed or purpura. MUSCULOSKELTAL: Negative for Myalgia or arthralgia. NEURLOGICAL: Still have significant slurred speech and droopy face with significant left-sided weakness. BEHAVIORAL/PSYCH: Negative. ENDOCRINE: Negative. PHYSICAL EXAMINATION: General Appearance: Alert, cooperative, no distress, appears stated age. Neck HEENT: Supple, no lymphadenopathy, no thyroid enlargement, no carotid bruits. Lungs: Clear to auscultation without crackles or wheezes no rhonchi, no deformity. Chest Wall: Chest wall normal expansion with deep inspiration no tenderness and no deformity was found on exam, no costochondral pain or discomfort. Heart: Regular rate and rhythm, S1, S2 normal, no murmur, rub or gallop. Back: Symmetric, no curvature, ROM normal, no CVA tenderness. Abdomen: Soft, non-tender, bowel sounds active all four quadrants, no masses, no organomegaly. Extremities: Extremities normal, atraumatic, no cyanosis or edema. Back: Incision in the lower back area looks fine with no sign of infection bleed dehiscing still have 6 markos with no drainage. Pulses: 2+ and symmetric. Skin: Skin color, texture, tugor normal, no rashes or lesions. Neurologic: Alert oriented x3 cranial nerves II through XII intact, positive s ignificant weakness in the left side compared to the right side is getting stronger on a slight bit abnormal balance and gait. Slight decrease sensation lower extremity as well from neuropathy. ASSESSMENT AND PLAN: _Altered mental status: Most likely side effect of medications combination between narcotic and gabapentin, patient to be watched carefully allowed medication to wash off and then we will start him back on a smaller dose initially and titrate dose higher if able to tolerate it. _Possible CVA versus TIA neurology want further workup including MRI of the brain at this point as for his transesophageal echocardiogram and carotid testing were done recently patient is back on antiplatelet agent with Brilinta 90 mg twice a day along with aspirin and continue higher dose of atorvastatin 80 mg daily. MRI scheduled for this morning following the result to be able to decide if there is any change compared with the last one consistent with a new finding of stroke. _Multiple fall with injury and bruised both knees with no fracture: Need help with physical therapy. _Recent L3/L4 laminectomy and discectomy: Still for surgery probably still have slight inflammation around the surgical site will consult his orthopedic surgeon. _Recent history of stroke was on Brilinta along with aspirin original timeframe for Brilinta was more than 90 days, resume medication at this point and he will be seen neurology. _Type 2 diabetes: Remain on aggressive management with insulin NovoLog mostly, Levemir at 10 units daily still on Prandin 2 mg 4 times a day and pioglitazone 45 mg a day and was on GLP-1 product. 2 his admission which is Mounjaro 7.5 mg weekly can be resumed afterward. Resume his entire regimen as before. He is doing much better with his medication and manage #2 request A1c for better review on his longer-term diabetic management. _Hypertension: Systolic blood pressure remain on the low 100 around 105-120 diastolic only running around 70. Blood pressure still better controlled this point remain on clonidine point 1 mg nightly, hydrochlorothiazide 50 mg daily, lisinopril 30 mg twice a day can benefit from calcium channel mal if needed. _Hyperlipidemia: Switch atorvastatin to 80 mg daily. _Chronic lower back pain for surgery with laminectomy and discectomy. Was off pain medication yesterday we will probably start him back on smaller dose of hydrocodone. _Chronic neuropathy: Switch gabapentin to 300 mg 3 times a day. _OSA: not on C PAP shouhd go for testing again and need CPAP or inspire. _Debility: Post stroke patient will be going for inpatient rehab. Our outpatient physical therapy. _GI prophylaxis: Will be on Pepcid 20 mg daily. Discussion: He still have slight debility not been able to ambulate and walk without help and not safe to ambulate on his own. He is doing physical therapy and I will recommend short-term rehab in one of [facility] which patient will be going to [facility] today. Objective - Vital Signs Vital signs: Vital Signs Temp 98.0 F 01/25/24 02:26 Pulse 96 01/25/24 02:26 Resp 16 01/25/24 02:26 BP 120/73 01/25/24 02:26 Pulse Ox 96 01/25/24 02:26 FiO2 Intake & Output 01/24/24 01/24/24 01/25/24 06:59 18:59 06:59 Other: Voiding Method Toilet Urinal # Voids 1 4 - Labs CBC & Chem 7: 01/23/24 05:45 01/23/24 05:45 Labs: Abnormal Lab Results - Last 24 Hours (Table) 09/17/24 09/17/24 09/17/24 Range/Units 11:42 16:13 21:02 POC Glucose (mg/dL) 188 H 237 H 225 H (70-110) mg/dL
--- NOTE | 2024-01-25 08:38 | P.PN ---
Subjective Progress Note Date: 01/25/24 Principal diagnosis: Altered mental status Recent lumbar surgery Generalized weakness Patient seen and examined this morning. Patient is resting comfortably in bed. He states that he feels his mentation and overall strength is improving every day since admission. Surgical incision to the lumbar spine, edges are well- approximated with markos intact. Dressing is clean dry and intact. Patient reports that he will be going to subacute rehab at discharge. Continue to enco urage patient to increase his activity, up to chair for all meals and to ambulate at least 4 times daily. Patient is cleared from orthopedic standpoint for discharge when medically stable. No acute concerns at this time. Objective - Vital Signs Vital signs: Vital Signs Temp 98.0 F 01/25/24 02:26 Pulse 96 01/25/24 02:26 Resp 16 01/25/24 02:26 BP 120/73 01/25/24 02:26 Pulse Ox 96 01/25/24 02:26 FiO2 Intake & Output 01/24/24 01/25/24 01/25/24 18:59 06:59 18:59 Other: Voiding Method Toilet Urinal # Voids 4 3 - Exam Physical Examination General: The patient is awake and alert, in no acute distress Skin: Skin is warm and dry with no obvious rashes or lesions. Surgical incision to the right lumbar spine, edges are well-approximated with markos intact. Dressing is clean dry and intact. Eye: Pupils are equal, round and reactive to light, extra-ocular movements are intact; there is normal conjunctiva bilaterally. Neck: The neck is supple, there is no tenderness and ROM intact. Cardiovascular: There is a regular rate and rhythm. No murmur, rub or gallop is appreciated. Respiratory: Respirations are non-labored, breath sounds are equal. Gastrointestinal: Soft, non-distended, non-tender abdomen. Back: There is no tenderness to palpation in the midline, paralumbar, parathoracic or buttocks region. There is no obvious deformity . Musculoskeletal: ROM limited secondary to pain and stiffness from surgical pro cedure. Right: Shoulder abduction 5/5, elbow flexors 5/5, wrist dorsiflexors 5/5. finger abductor 5/5, allergist/immunologist physician 5/5, hip flexor 4/5, knee flexor 4/5, ankle dorsiflexor 4/5, ankle plantarflexion 4/5 and extensor hallucis 4/5. Left: Shoulder abduction 5/5, elbow flexors 5/5, wrist dorsiflexors 5/5. finger abductor 5/5, allergist/immunologist physician 5/5, hip flexor 4/5, knee flexor 4/5, ankle dorsiflexor 4/5, ankle plantarflexion 4/5 and extensor hallucis 4/5. Neurological: CN 2-12 intact. There are no obvious motor or sensory deficits. Movement and coordination equal and intact. Sensory exam to light touch intact C5-T1 and intact from L2-S1. Reflexes 2/4 in bilateral upper and lower extremities. Negative Hoffmans, babinski, and clonus signs. Psychiatric: Cooperative, appropriate mood & affect, normal judgment. - Labs CBC & Chem 7: 01/23/24 05:45 01/23/24 05:45 Labs: Abnormal Lab Results - Last 24 Hours (Table) 01/24/24 01/24/24 01/24/24 Range/Units 11:42 16:13 21:02 POC Glucose (mg/dL) 188 H 237 H 225 H (70-110) mg/dL 01/25/24 Range/Units 06:26 POC Glucose (mg/dL) 133 H (70-110) mg/dL Assessment and Plan Assessment: Altered mental status-resolving Recent lumbar surgery; post-op day 9: L3-L4 right laminoforaminotomy Generalized weakness Plan: -Appreciate instructional design consultant and team management. -Activity: Ambulate QID, OOB all meals, up and about, limit lifting bending twisting to less than 5 lbs. Use walker or cane if needed for stability. -Daily PT/OT, increase ambulation strength and balance. -Pain control: Adequate at this time -Meds: reviewed -GI ppx: senna -DVT PPX: Brilinta -Hygiene: Maintain incision clean and dry. Meticulous cleaning after BMs away from the incision site -Encourage IS 10x/hr -Dispo: Patient is cleared from an Orthopedic standpoint for discharge when medically stable. Patient is to follow up in office with Dr. Reynolds 02/01/24 . *I reviewed and discussed this case with my attending Dr. Reynolds, whom has reviewed this chart and films and is in agreement with assessment and plan of care as outlined above. I have personally seen and examined the patient, performed the documentation and the assessment and plan as written. Number of minutes spent on the visit: 20m
[2024-01-25 11:11] LABS: Glucose,Whole Blood 250 mg/dL (70-110)
--- NOTE | 2024-01-25 13:08 | P.PN ---
Subjective Progress Note Date: 01/24/24 Patient was seen for a follow-up. Patient's family members were present. Patient's speech has improved. Offers no new complaints. Objective - Vital Signs Vital signs: Vital Signs Temp 97.2 F L 01/24/24 13:57 Pulse 100 01/24/24 13:57 Resp 16 01/24/24 13:57 BP 119/71 01/24/24 13:57 Pulse Ox 96 01/24/24 13:57 FiO2 Intake & Output 01/23/24 01/24/24 01/24/24 18:59 06:59 18:59 Other: # Voids 3 1 4 - Exam Patient's speech is slightly more clear. Rest of the examination is unchanged. - Labs CBC & Chem 7: 01/23/24 05:45 01/23/24 05:45 Labs: Abnormal Lab Results - Last 24 Hours (Table) 01/23/24 01/24/24 01/24/24 Range/Units 20:48 06:11 11:42 POC Glucose (mg/dL) 282 H 143 H 188 H (70-110) mg/dL 01/24/24 Range/Units 16:13 POC Glucose (mg/dL) 237 H (70-110) mg/dL Assessment and Plan Assessment: * Possible stroke/TIA manifesting with leg weakness, dysarthria, and difficulty with gait. * History of CVA on 10/04/2023, manifesting with left hemiparesis, significantly improved. * Hypertension * Diabetes * Status post L3-4 laminoforaminotomy with far lateral discectomy and microdiscectomy, on 01/16/2024. Plan: * Await MRI of the brain evaluate for any acute stroke. * Patient has been resumed on aspirin 81 mg, Brilinta 90 mg twice daily. Also on Lipitor 80 mg daily. * PT OT, evaluate gait. * Hemoglobin A1c 7.0. Recommend optimize control of diabetes to target A1c <7.0. * Discussed with family members.
--- NOTE | 2024-01-25 13:11 | P.DS ---
Providers Date of admission: 01/22/24 11:30 Expected date of discharge: 01/26/24 Attending physician: Lev Kuhn Consults: 01/23/24 07:36 Consult Physician Routine Consulting Provider: Poncho Reynolds Consult Reason/Comments: Post Surgery with L sided weakness. post Falls Do you want consulting provider notified?: Yes 01/23/24 07:38 Consult Physician Routine Consulting Provider: Rene Koroma Consult Reason/Comments: post CVA and recent Back surgery Do you want consulting provider notified?: Yes Primary care physician: [facility] Course: HISTORY OF PRESENT ILLNESS: 68-year-old with active medical history of type 2 diabetes has been on multiple medication manage blood sugar finally become slightly better control, history of CVA affecting the right basal ganglia during this year the patient had episode of left hemiparesis and left arm ataxia who also had severe lower back pain with chronic spinal stenosis with severe radiculopathy and herniated disc in the L3- L4 was supposed to have surgery early was delayed because of his stroke and recent hospitalization. Finally had his surgery with Dr. Reynolds in January 16, 2024 for L3-4 laminoforaminotomy along with lateral discectomy and micro discectomy . 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 He developed last 24 hours appeared to admission to have significant altered mental status with worsening confusion and respond reaction had fall landed on both knees with no head injury could not ambulate and needed more than 1 person employment legal assistant walk to the bathroom and his balance become quite bit off significantly. Apparently he started recently on oxycodone along with gabapentin medication were titrated fast because patient to be quite symptomatic. 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 Chest x-ray showed borderline heart size with some strandy basilar atelectasis no consolidation and picture of DISH in the lower thoracic spine area. Laboratory value shows normal CBC, chemistry with creatinine of 0.8 blood sugar is mildly elevated with only 1 abnormal. He was diagnosed with severe weakness and fall with worsening symptoms since his surgery also mild hyperglycemia with recent history of stroke with abnormal balance and gait since. Patient is not safe was admitted to the hospital be seen neurology and his Ortho/spine surgeon. 01/24/2024: He still quite bit debilitated at this point is mobility is decreased still have quite good weakness in the right side with worsening sciatica and radiculopathy symptoms. Was evaluated by neurology yesterday and the left more remark on? Of possible TIA or stroke manifestation with leg weakness dysarthria difficulty of gait and ambulation. The patient had a stroke with left hemiparesis back in October 03 which is this is really not the same at this point he had his L3-4 laminoforaminotomy with lateral discectomy and microdiscectomy which most likely the weakness is from his surgical site mostly. Again neurology want him to have an MRI of the brain in the meanwhile to continue aspirin along with Brilinta and the higher dose of atorvastatin and we will reevaluate his A1c which has been doing much better. Sadly his MRI is done shortly after his surgery not quite sure how this is going to be more suitable and if it is claritza create any problem with his spine surgery at this point or not. Clinically patient is much better than the day before so we will carry on physical therapy while doing this workup [id number]. 01/25/2024: Patient is doing much better today sitting in the chair his pain is under better control, still have slight weakness in the right leg but not the arm, the surgical site looking much better he is doing very well with physical therapy. Neurology had ordered an MRI of the brain which will be done this morning if no change or abnormality hopefully patient be able to go to [facility] today for short-term rehab and physical therapy. Pain is well-controlled on oxycodone 3 times a day still doing Flexeril and gabapentin without adjustment on his medication mental status is much better compared to his admission date. REVIEW OF SYSTEMS: CONSTITUTIONAL: Well-developed no acute respiratory distress. EYES: No icterus sclerae, no conjunctivitis. EARS, NOSE, MOUTH, THROAT, and FACE: No sore throat, lymphadenopathy, carotid bruits or deformity. RESPIRATORY: No SOB cough or wheezes. CARDIOVASCULAR: No CP, Palpitation, PND, Orthopnea, or angina. No arrhythmia no A-fib was found. GASTROINTESTINAL: No Abd pain, Nausea or vomiting, no Diarrhea or constipation, No GI Bleed, no distention or masses. GENITOURINARY: Negative for Hematuria or UTI, no kidney stones. INTEGUMENT/BREAST: Generalized arthralgia and weakness of the lower extremity. Back: His incision lower back looks good with no sign of infection. HEMATOLOGIC/LYMPHATIC: Negative for bleed or purpura. MUSCULOSKELTAL: Negative for Myalgia or arthralgia. NEURLOGICAL: Still have significant slurred speech and droopy face with significant left-sided weakness. BEHAVIORAL/PSYCH: Negative. ENDOCRINE: Negative. PHYSICAL EXAMINATION: General Appearance: Alert, cooperative, no distress, appears stated age. Neck HEENT: Supple, no lymphadenopathy, no thyroid enlargement, no carotid bruits. Lungs: Clear to auscultation without crackles or wheezes no rhonchi, no deformity. Chest Wall: Chest wall normal expansion with deep inspiration no tenderness and no deformity was found on exam, no costochondral pain or discomfort. Heart: Regular rate and rhythm, S1, S2 normal, no murmur, rub or gallop. Back: Symmetric, no curvature, ROM normal, no CVA tenderness. Abdomen: Soft, non-tender, bowel sounds active all four quadrants, no masses, no organomegaly. Extremities: Extremities normal, atraumatic, no cyanosis or edema. Back: Incision in the lower back area looks fine with no sign of infection bleed dehiscing still have 6 markos with no drainage. Pulses: 2+ and symmetric. Skin: Skin color, texture, tugor normal, no rashes or lesions. Neurologic: Alert oriented x3 cranial nerves II through XII intact, positive significant weakness in the left side compared to the right side is getting stronger on a slight bit abnormal balance and gait. Slight decrease sensation lower extremity as well from neuropathy. ASSESSMENT AND PLAN: _Altered mental status: Most likely side effect of medications combination between narcotic and gabapentin, patient to be watched carefully allowed medication to wash off and then we will start him back on a smaller dose initially and titrate dose higher if able to tolerate it. _Possible CVA versus TIA neurology want further workup including MRI of the brain at this point as for his transesophageal echocardiogram and carotid testing were done recently patient is back on antiplatelet agent with Brilinta 90 mg twice a day along with aspirin and continue higher dose of atorvastatin 80 mg daily. MRI scheduled for this morning following the result to be able to decide if there is any change compared with the last one consistent with a new finding of stroke. _Multiple fall with injury and bruised both knees with no fracture: Need help with physical therapy. _Recent L3/L4 laminectomy and discectomy: Still for surgery probably still have slight inflammation around the surgical site will consult his orthopedic surgeon. _Recent history of stroke was on Brilinta along with aspirin original timeframe for Brilinta was more than 90 days, resume medication at this point and he will be seen neurology. _Type 2 diabetes: Remain on aggressive management with insulin NovoLog mostly, Levemir at 10 units daily still on Prandin 2 mg 4 times a day and pioglitazone 45 mg a day and was on GLP-1 product. 2 his admission which is Mounjaro 7.5 mg weekly can be resumed afterward. Resume his entire regimen as before. He is doing much better with his medication and manage #2 request A1c for better review on his longer-term diabetic management. _Hypertension: Systolic blood pressure remain on the low 100 around 105-120 diastolic only running around 70. Blood pressure still better controlled this point remain on clonidine point 1 mg nightly, hydrochlorothiazide 50 mg daily, lisinopril 30 mg twice a day can benefit from calcium channel mal if needed. _Hyperlipidemia: Switch atorvastatin to 80 mg daily. _Chronic lower back pain for surgery with laminectomy and discectomy. Was off pain medication yesterday we will probably start him back on smaller dose of hydrocodone. _Chronic neuropathy: Switch gabapentin to 300 mg 3 times a day. _OSA: not on C PAP shouhd go for testing again and need CPAP or inspire. _Debility: Post stroke patient will be going for inpatient rehab. Our outpatient physical therapy. _GI prophylaxis: Will be on Pepcid 20 mg daily. Discussion: He still have slight debility not been able to ambulate and walk without help and not safe to ambulate on his own. He is doing physical therapy and I will recommend short-term rehab in one of the halfway which patient will be going to [facility] on today. Hospital course: He had L3-4 laminectomy and discectomy with microdiscectomy at [facility] on January 16, 2024 he was at home on adjusted medication between gabapentin, oxycodone and Flexeril he developed last 24 hours prior to admission to have significant altered mental status with worsening confusion not respond well and had fall more than 1 time the day of admission he fell on both knees and bruised the right side without having any injury or fracture and he was not ambulating well require more than 1 person employment legal assistant even to be able to move to the bathroom and his balance quite bit off mental status was not completely right. EMS brought patient to the hospital on 01/23/2024 was seen and evaluated CAT scan of the brain did not show any abnormality at the time still showing his older stroke. X-ray and CAT scan of the spine showed DISH finding on the thoracic spine no major abnormality with his chemistry no sign of infection his blood sugar has been off slight bit but otherwise patient is doing well. Patient was seen neurology who agree with the current finding can be side effect of medication but still kept him open mind with the idea that still can be new stroke recommend to complete the workup for it. Patient's symptoms had improved significantly but continue having slight weakness in the right leg consistent with mostly radiculopathy no element of weakness in the right upper extremity at this point. He will be going for an MRI of the brain to exclude the possibility completely. He done very well with physical therapy able to ambulate and walk with slight help while he is using a walker. Surgical site looking much better he is seen Ortho/spine and review all the finding agree this is probably a reaction to medication and the inflammation around the surgical site with causing his weakness in the first place. After complete his physical therapy today and finishing his MRI patient be able to be transfer to [facility] for short-term rehab. Time spent on patient discharge was over 35 minutes. Patient Condition at Discharge: Fair Plan - Discharge Summary Discharge Rx Participant: Yes New Discharge Prescriptions: Continue allopurinoL [Zyloprim] 300 mg PO HS Magnesium Oxide [Mag-Ox] 400 mg PO QID Cinnamon Bark [Cinnamon] 500 mg PO QID Pioglitazone [Actos] 45 mg PO DAILY Turmeric Root Extract [Turmeric] 500 mg PO BID-W/MEALS hydroCHLOROthiazide [Hydrodiuril] 50 mg PO W/SUPPER Ticagrelor [Brilinta] 90 mg PO BID #60 tab lisinopriL [Zestril] 20 mg PO BID #60 tab Sennosides [Ex-Lax Chew] 15 - 30 mg PO HS Cyclobenzaprine [Flexeril] 5 mg PO TID PRN PRN Reason: Muscle Spasm Lidocaine 5% Patch [Lidoderm 5% Patch] 1 patch TOPICAL DAILY Loratadine [Claritin] 10 mg PO DAILY Atorvastatin [Lipitor] 80 mg PO HS Insulin Aspart [NovoLOG] See Protocol SQ ACHS PRN PRN Reason: Blood Sugar - High Repaglinide [Prandin] 2 mg PO QID Fenofibrate 54 mg PO DAILY Cholecalciferol (Vitamin D3) [Vitamin D3 (50 Mcg = 2000 Iu)] 50 mcg PO W/LUNCH Tirzepatide [Mounjaro] 7.5 mg SQ PEARSON Cyanocobalamin (Vitamin B-12) [Vitamin B-12] 1 tablet PO W/LUNCH Aspirin 81 mg PO DAILY #30 tab Fluticasone Nasal [place] [Flonase Nasal [place]] 1 spray EA NOSTRIL DAILY #1 ml Pantoprazole [Protonix] 40 mg PO AC-BRKFST #30 tab Lactulose [Cephulac] 10 gm PO BID PRN PRN Reason: Constipation Sennosides [Senokot] 8.6 mg PO QID Gabapentin [Neurontin] 300 mg PO TID@0600,1400,2000 Pyridoxine [Vitamin B-6] 100 mg PO W/LUNCH Theralith Xr 1 tab PO QID Famotidine [Pepcid] 20 mg PO BID-W/MEALS Ubidecarenone [Q-Sorb Co Q-10] 200 mg PO W/LUNCH Changed oxyCODONE HCL/ACETAMINOPHEN [Percocet 5-325 mg] 1 tab PO Q6H PRN #20 tab PRN Reason: Pain Insulin Degludec [Tresiba Flextouch U-100 Pen] 25 unit SQ AC-BID #0 Discharge Medication List Magnesium Oxide [Mag-Ox] 400 mg PO QID 09/05/15 [History] allopurinoL [Zyloprim] 300 mg PO HS 09/05/15 [History] Cinnamon Bark [Cinnamon] 500 mg PO QID 03/19/18 [History] Pioglitazone [Actos] 45 mg PO DAILY 03/19/18 [History] Turmeric Root Extract [Turmeric] 500 mg PO BID-W/MEALS 03/19/18 [History] Fenofibrate 54 mg PO DAILY 06/01/22 [History] Insulin Aspart [NovoLOG] See Protocol SQ ACHS PRN 06/01/22 [History] Repaglinide [Prandin] 2 mg PO QID 06/01/22 [History] Cholecalciferol (Vitamin D3) [Vitamin D3 (50 Mcg = 2000 Iu)] 50 mcg PO W/LUNCH 10/05/23 [History] Tirzepatide [Mounjaro] 7.5 mg SQ PEARSON 10/05/23 [History] hydroCHLOROthiazide [Hydrodiuril] 50 mg PO W/SUPPER 10/05/23 [History] Cyanocobalamin (Vitamin B-12) [Vitamin B-12] 1 tablet PO W/LUNCH 10/07/23 [History] Aspirin 81 mg PO DAILY #30 tab 10/11/23 [Rx] Fluticasone Nasal [place] [Flonase Nasal [place]] 1 spray EA NOSTRIL DAILY #1 ml 10/11/23 [Rx] Pantoprazole [Protonix] 40 mg PO AC-BRKFST #30 tab 10/11/23 [Rx] Ticagrelor [Brilinta] 90 mg PO BID #60 tab 10/11/23 [Rx] lisinopriL [Zestril] 20 mg PO BID #60 tab 10/11/23 [Rx] Lactulose [Cephulac] 10 gm PO BID PRN 11/30/23 [History] Sennosides [Ex-Lax Chew] 15 - 30 mg PO HS 11/30/23 [History] Sennosides [Senokot] 8.6 mg PO QID 11/30/23 [History] Atorvastatin [Lipitor] 80 mg PO HS 01/22/24 [History] Cyclobenzaprine [Flexeril] 5 mg PO TID PRN 01/22/24 [History] Famotidine [Pepcid] 20 mg PO BID-W/MEALS 01/22/24 [History] Gabapentin [Neurontin] 300 mg PO TID@0600,1400,199901/22/24 [History] Lidocaine 5% Patch [Lidoderm 5% Patch] 1 patch TOPICAL DAILY 01/22/24 [History] Loratadine [Claritin] 10 mg PO DAILY 01/22/24 [History] Pyridoxine [Vitamin B-6] 100 mg PO W/LUNCH 01/22/24 [History] Theralith Xr 1 tab PO QID 01/22/24 [History] Ubidecarenone [Q-Sorb Co Q-10] 200 mg PO W/LUNCH 01/22/24 [History] Insulin Degludec [Tresiba Flextouch U-100 Pen] 25 unit SQ AC-BID #0 01/25/24 [Rx] oxyCODONE HCL/ACETAMINOPHEN [Percocet 5-325 mg] 1 tab PO Q6H PRN #20 tab 01/25/24 [Rx] Follow up Appointment(s)/Referral(s): Lev Kuhn MD [Primary Care Provider] - 1-2 days Poncho Reynolds DO [Doctor of Osteopathic Medicine] - 02/01/24 Discharge Disposition: TRANSFER TO SNF/ECF
[2024-01-25] MEDS: diazePAM 5 MG TAB PO STA (14:37)
--- NOTE | 2024-01-25 16:10 | MR ---
EXAMINATION TYPE: MR brain wo con DATE OF EXAM: 01/25/2024 3:34 PM CLINICAL INDICATION: Male, 68 years old with history of Acute leg weakness, slurred speech, r/o CVA; PHH, Acute leg weakness, slurred speech, r/o cva COMPARISON: MRI 10/06/2023. TECHNIQUE: Multi planar, multi sequence imaging was performed through the brain including: T1, T2, In version recovery, Diffusion weighted imaging, and gradient echo imaging. No gadolinium was given. FINDINGS: Mild cerebral atrophy with proportional dilation of ventricular system. Scattered foci of high T2 s ignal intensity are seen within the periventricular white matter. Midline structures show no abnormal ity. Diffusion-weighted imaging shows no evidence of restricted diffusion. The susceptibility weighte d images do not reveal any evidence for micro-hemorrhage. The bone marrow signal is within normal limits. Paranasal sinuses and mastoid air cells: No significant paranasal sinus disease. Visualized orbits: Orbital contents are intact. IMPRESSION: 1. No evidence of intracranial mass or acute/subacute infarct. Prior injury along the right perez ra diata/centrum semiovale 2. Nonspecific white matter changes, likely secondary to small vessel ischemic disease.,[facility], , 01/25/2024 4:08 PM
[2024-01-25 16:36] LABS: Glucose,Whole Blood 122 mg/dL (70-110)
[2024-01-25 20:35] LABS: Glucose,Whole Blood 146 mg/dL (70-110)
[2024-01-26 06:13] LABS: Glucose,Whole Blood 93 mg/dL (70-110)
[2024-01-26 10:01] VITALS: BP 104/69; PULSE 87; RESP 18; TEMP 97.9
--- NOTE | 2024-01-26 14:53 | P.PN ---
Subjective Progress Note Date: 01/25/24 Patient was seen for a follow-up. Patient's speech has improved. Offers no new complaints. Objective - Vital Signs Vital signs: Vital Signs Temp 97.9 F 01/25/24 13:48 Pulse 90 01/25/24 13:48 Resp 16 01/25/24 13:48 BP 101/66 01/25/24 13:48 Pulse Ox 97 01/25/24 13:48 FiO2 Intake & Output 01/24/24 01/25/24 01/25/24 18:59 06:59 18:59 Other: Voiding Method Toilet Urinal # Voids 4 3 3 # Bowel Movements 2 - Exam Patient's speech is slightly more clear. Rest of the examination is unchanged. - Labs CBC & Chem 7: 01/23/24 05:45 01/23/24 05:45 Labs: Abnormal Lab Results - Last 24 Hours (Table) 01/23/24 01/24/24 01/25/24 Range/Units 05:45 21:02 06:26 POC Glucose (mg/dL) 225 H 133 H (70-110) mg/dL Hemoglobin A1c 7.0 H (<=6.0) % 01/25/24 01/25/24 Range/Units 11:09 16:35 POC Glucose (mg/dL) 250 H 122 H (70-110) mg/dL Hemoglobin A1c (<=6.0) % Assessment and Plan Assessment: * Possible stroke/TIA manifesting with leg weakness, dysarthria, and difficulty with gait. * History of CVA on 10/04/2023, manifesting with left hemiparesis, significantly improved. * Hypertension * Diabetes * Status post L3-4 laminoforaminotomy with far lateral discectomy and microdiscectomy, on 01/16/2024. Plan: * MRI of the brain revealed no evidence of intracranial mass or acute/subacute infarct. Prior injury along the right perez radiata/centrum semiovale. Nonspecific white matter changes, likely secondary to small vessel ischemic disease. I personally reviewed MRI agree with the findings. * Patient has been resumed on aspirin 81 mg, Brilinta 90 mg twice daily. Also on Lipitor 80 mg daily. * PT OT, evaluate gait. * Hemoglobin A1c 7.0. Recommend optimize control of diabetes to target A1c <7.0. * Neurologically clear for transfer to subacute rehab.
--- NOTE | 2024-02-10 17:14 | CDI ---
Documentation Clarification Form Date: 02/10/2024 04:49:46 PM From: Julianne Angeles Admit Date: 01/22/2024 11:30:00 AM Patient Name: Javon Jackman Visit Number: [id number] Discharge Date: 01/26/2024 11:40:00 AM ATTENTION: The Clinical Documentation Specialists (CDI) and [facility] Coding Staff appreciate your assistance in clarifying documentation. Please respond to the clarification below the line at the bottom and electronically sign. The CDI & [facility] Coding staff will review the response and follow-up if needed. Please note: Queries are made part of the Legal Health Record. If you have any questions, please contact the author of this message via ITS. Doctor/Provider: Lev Kuhn Your patient has the documented symptom of weakness and debility located in the History and Physical 01/22/24, progress notes, and Discharge Summary 01/26/24. Additional clarification regarding the etiology/cause of this symptom is requested. History/Risk Factors: patient is a 68 year old male with a history of CVA, diabetes, HTN, and recent lumbar surgery for lumbar radiculopathy, sciatica, and spinal stenosis. Clinical Indicators: patient presented due to weakness, falls, and debility. He was also found to be confused and diagnosed with toxic encephalopathy. states she cannot care for the patient at home. Prior to admit patient was having confusion, and difficulty with speech. He tried to ambulate to the bathroom at home when he had an acute onset of weakness and fell to the ground landing on his knees. He did not injure himself. Progress note 01/23: patient is still quite debilitated, mobility has decreased, a lot of weakness still on the right side with worsening sciatica and radiculopathy. Patients symptoms began to improve, but continues to have slight weakness in the right leg consistent with mostly radiculopathy Per your Discharge Summary 01/25: Patient has done well with PT and can walk with slight help while he is using a walker. Surgical site looks much better. This is probably a reaction to the medication and the inflammation around the surgical site causing his weakness in the first place Discharge summary also states patient has a history of stroke in September 2023 with left hemiparesis which is not the same at this point. Treatment: patient required working with physical therapy, was discharged to a intermediate facility for short term rehab. Was taken off post-surgery narcotic and gabapentin with slow re-introduction and then titrate to a higher dose. Is there a corresponding diagnosis/etiology for this symptom of weakness? [ ] Age related physical debility [ ] Age related cognitive decline [ XX ] Weakness is due to radiculopathy/sciatica and inflammation after surgery [ ] Unilateral weakness due to old CVA [ ] Unable to determine [ ] Other, please specify MTDD
--- NOTE | 2024-02-10 17:33 | CDI ---
Documentation Clarification Form Date: 02/10/2024 05:14:51 PM From: Julianne Angeles Admit Date: 01/22/2024 11:30:00 AM Patient Name: Javon Jackman Visit Number: [id number] Discharge Date: 01/26/2024 11:40:00 AM ATTENTION: The Clinical Documentation Specialists (CDI) and [facility] Coding Staff appreciate your assistance in clarifying documentation. Please respond to the clarification below the line at the bottom and electronically sign. The CDI & [facility] Coding staff will review the response and follow-up if needed. Please note: Queries are made part of the Legal Health Record. If you have any questions, please contact the author of this message via ITS. Doctor/Provider: Lev Kuhn Conflicting documentation has been found in the medical record. As attending physician, please provide clarification. Dr Koroma 01/24/24 progress note: patient was taken off Brilinta 5 days prior to surgery and did not take for 2 days post op. patient was also off aspirin for 1 week before surgery. Diagnosed with a possible CVA/TIA manifesting with leg weakness, dysarthria, and difficulty with gait. 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 Dr Koroma 01/25/24 progress note: MRI of the brain revealed no evidence of intracranial mass or acute/subacute infarct. Your Discharge Summary 01/26/24: Possible CVA versus TIA. MRI scheduled for the morning following the result to be able to decide if there is any change compared with the last one consistent with a new finding of stroke. History/Risk Factors: patient is a 68 year old male with a history of CVA with left sided weakness, diabetes, HTN, and recent lumbar surgery for lumbar radiculopathy, sciatica, and spinal stenosis. Clinical Indicators: patient presented due to weakness, falls, and debility.Prior to admit patient was having confusion, and difficulty with speech. He tried to ambulate to the bathroom at home when he had an acute onset of weakness and fell to the ground landing on his knees. He did not injure himself. Patient was diagnosed with toxic encephalopathy, weakness possibly related to his radiculopathy, and was worked up for possibility of a new CVA/TIA due to the weakness. MRI Impression: no evidence of intracranial mass or acute/subacute infarct. Prior injury along the right perez radiate/centrum semiovale. Nonspecific white matter changes, likely secondary to small vessel ischemic disease. Treatment: neurology work up, MRI, cut back on post-surgery medication and titrated back up to a higher dose, and had the patient work with physical therapy. Please clarify which diagnosis is most appropriate: [ ] CVA/TIA has been ruled out [ ] CVA confirmed/suspected [ ] TIA confirmed/suspected [ XX ] Other (please specify) side effect of medication and medication interaction. [ ] Unable to determine MTDD
== END 2024-01-26 11:40 | DRG 551 ==
LOC: EC 06:16 → 4SSUR 11:30
PROVIDERS: ADMIT Internal Medicine Geriatric Medicine; ATTEND Internal Medicine Geriatric Medicine
DX: M54.16 Radiculopathy, lumbar region (principal); G92.8 Other toxic encephalopathy; I69.354 Hemiplegia and hemiparesis following cerebral infarction affecting left non-dominant side; T42.6X5A Adverse effect of other antiepileptic and sedative-hypnotic drugs, initial encounter; S80.02XA Contusion of left knee, initial encounter; S80.01XA Contusion of right knee, initial encounter; T40.2X5A Adverse effect of other opioids, initial encounter; W18.30XA Fall on same level, unspecified, initial encounter; M54.41 Lumbago with sciatica, right side; M48.061 Spinal stenosis, lumbar region without neurogenic claudication; J30.2 Other seasonal allergic rhinitis; E55.9 Vitamin D deficiency, unspecified; I25.10 Atherosclerotic heart disease of native coronary artery without angina pectoris; E78.5 Hyperlipidemia, unspecified; I10 Essential (primary) hypertension; E11.65 Type 2 diabetes mellitus with hyperglycemia; E11.40 Type 2 diabetes mellitus with diabetic neuropathy, unspecified; G89.29 Other chronic pain; I69.398 Other sequelae of cerebral infarction; R26.89 Other abnormalities of gait and mobility; G47.33 Obstructive sleep apnea (adult) (pediatric); R47.1 Dysarthria and anarthria; R29.6 Repeated falls; Z91.81 History of falling; Z88.8 Allergy status to other drugs, medicaments and biological substances; Z79.899 Other long term (current) drug therapy; Z79.84 Long term (current) use of oral hypoglycemic drugs; Z79.82 Long term (current) use of aspirin; Z79.4 Long term (current) use of insulin; Z79.02 Long term (current) use of antithrombotics/antiplatelets
CPT/HCPCS: 36415; 70450; 70551; 71046; 80048; 80053; 80143; 80306; 81003; 83036; 84484; 85025; 85610; 85730; 86140; 93005; 96360; 96361; 99285